=== PATIENT | male | born 1955 | race Caucasian/White ===

== ENCOUNTER 2017-04-20 12:44 | Emergency (ER) | payer MEDICAID ==
[2016-03-09 13:24] VITALS: BMI 23.7
[~2017-04-20 12:44] MED LIST: CATAPRES0.1 MG PO; FOLIC ACID1 MG PO; LISINOPRIL10 MG PO; MINOCIN100 MG PO; NORVASC5 MG PO; ROCALTROL0.25 MCG PO; TIROSINT25 MCG PO; TRAZODONE HCL50 MG PO
[2017-04-20 13:17] LABS: EOSINOPHILS 2.5 % (0-7); HEMOGLOBIN 13.3 g/dL (13.5-17.5); IMMATURE GRANULOCYTES 0.7 % (0-5); LYMPHOCYTES 42.2 % (15-50); MCH 33.8 pg (26.0-34.0); MCHC 34.1 g/dL (31.0-37.0); MCV 99.2 fL (80.0-100.0); MEAN PLATELET VOLUME 9.8 fL (7.4-10.4); MONOCYTES 8.9 % (2-11); NEUTROPHILS 44.7 % (40-80); PLATELET COUNT 158 10x3/uL (130-400); RBC 3.93 10x6/uL (4.20-6.10); RDW 17.2 % (11.5-14.5); WBC 5.9 10x3/uL (4.8-10.8)
[2017-04-20 13:57] LABS: ALBUMIN 3.8 g/dL (3.4-5.0); ALKALINE PHOSPHATASE 139 U/L (46-116); ALT (SGPT) 41 U/L (10-68); BILIRUBIN - TOTAL 0.44 mg/dL (0.2-1.3); CALC OSMOLALITY 269 mosm/kg (275-300); CARBON DIOXIDE 30.4 mmol/L (21.0-32.0); CHLORIDE - SERUM 96 mmol/L (98-107); CKMB 2.5 U/L (0.0-3.6); CREATININE - SERUM 0.9 mg/dL (0.6-1.3); GLUCOSE 84 mg/dL (74-106); PROTEIN - SERUM 8.7 g/dL (6.4-8.2); SODIUM 136 mmol/L (136-145); UREA NITROGEN 9 mg/dL (7-18); eGFR NON AFRICAN AMERICAN > 90 mL/min (90-120)
[2017-04-20 14:21] LABS: CREATINE KINASE 834 UL (21-232)
[2017-04-20 14:23] LABS: CALCIUM 5.6 mg/dL (8.5-10.1); TROPONIN-I 0.106 ng/mL (0.000-0.060)
== END 2017-04-20 14:21 | disposition home or self-care (01) ==
LOC: D.ER 12:44
PROVIDERS: Emergency Medicine
DX: R07.9 Chest pain, unspecified (principal); I25.10 Atherosclerotic heart disease of native coronary artery without angina pectoris; I10 Essential (primary) hypertension; I44.1 Atrioventricular block, second degree; I45.10 Unspecified right bundle-branch block

== ENCOUNTER 2017-08-05 15:16 | Inpatient (IN) | payer MEDICAID ==
[~2017-08-05] VITALS: Ht 180.3 cm; Wt 70.8 kg
--- NOTE | ~2017-08-05 | OP ---
PATIENT NAME: HAMZAH GREEN MEDICAL RECORD: [id number] :51 LOCATION:D.CVI D.CV05 ADMISSION DATE:08/05/17 SURGEON: KAREN VAIL MD DATE OF OPERATION: 08/06/2017 PREOPERATIVE DIAGNOSES: 1. Bradycardia. 2. Sick sinus syndrome. 3. Delirium tremens. POSTOPERATIVE DIAGNOSES: 1. Bradycardia. 2. Sick sinus syndrome. 3. Delirium tremens. PROCEDURE: 1. Left subclavian vein dual lead pacemaker placement. 2. Fluoroscopic interpretation. SURGEON: Karen Vail MD CO-SURGEON: Fady Philip MD REPORT OF PROCEDURE: The patient's left chest was prepped and draped in sterile fashion. A total of 25 mL of 1% lidocaine with epinephrine was infused into the surrounding tissues. A transverse incision was made overlying the left superior lateral chest and a subcutaneous pouch was made over the pectoral fascia. We accessed the subclavian vein times 2 and a guidewires were advanced with ease. Fluoro was used to note that the wire was in good position in the venous system. The dilator trocar device was placed over the wire and the wire and dilators were removed. The leads were advanced through the trocars. At this point, Dr. Philip positioned the leads appropriately in the atrium and ventricle. Once these were noted to be functioning appropriately, then the leads were sutured into place with 0 Ti-Cron. The pacemaker was inserted and attached to the leads, this pacemaker was placed in the subcutaneous pouch and sutured down with a 0 Ti-Cron. The subcutaneous tissues were irrigated out with antibiotic solution and then reapproximated with interrupted 3-0 Vicryls. The skin was then closed with running subcutaneous 5-0 Monocryl and dressed appropriately. COMPLICATIONS: None. CONDITION: Stable. ANESTHESIA: Local MAC. BLOOD LOSS: Minimal. TRANSINT:[id number] Voice Confirmation ID: [id number] DOCUMENT ID: [id number] OPERATIVE REPORT [id number] HAMZAH GREEN KAREN VAIL MD at 1319 CC: [id number] DICTATION DATE: 08/06/17 1222 ADJUNCT FACULTY INSTRUCTOR: 08/06/17 1848 DIS IN 08/08/17 [address] [place] [address]
--- NOTE | ~2017-08-05 | DS ---
PATIENT:HAMZAH GREEN :51 MEDICAL RECORD: [id number] DISCHARGE SUMMARY ADMISSION DATE: 08/05/17 DISCHARGE DATE: 08/08/17 DATE OF ADMISSION: 08/05/2017. DATE OF DISCHARGE: 08/08/2017. PROBLEM LIST: Complete heart block with asystole. PROCEDURES PERFORMED: 1. Temporary pacemaker emergently. 2. Dual-chamber pacemaker. BRIEF HISTORY AND HOSPITAL COURSE: Admitted with complete heart block progressing to asystole. A temporary pacemaker was placed urgently, underwent permanent pacemaker placement. Discharged home in good condition. Followup in the office in approximately 1 month. TRANSINT:[id number] Voice Confirmation ID: [id number] DOCUMENT ID: [id number] ALEJANDRINA GOMEZ MD at 0920 CC: [id number] DICTATION DATE: 08/08/17 1122 TRACE CLERK: 08/08/17 1248 DIS IN 08/08/17 [id number] [place] [address]
--- NOTE | ~2017-08-05 | HEMODYNAMI ---
PATIENT:HAMZAH GREEN MEDICAL RECORD: [id number] : 51 LOCATION:[facility] ADMISSION DATE: 08/05/17 Generatedon:08/05/201717:18 Patient name: HAMZAH GREEN Patient #: [id number] SSN: : 1955 Date of study: 08/05/2017 Page: Of Hemodynamic Procedure Report Patient Data Patient Demographics Procedure consent was obtained First Name: HAMZAH Gender: Male Last Name: PETER : 1955 Middle Initial: W Age: 62 year(s) Patient #: [id number] Race: Unknown Additional ID: [id number] Contact details Address: [address] [place] [address] [address]REET State: [place] City: [facility] Zip code: [address] Admission Admission Data Admission Date: 08/05/2017 Admission Time: 15:16 Admit Source: Emergency department Procedure Procedure Types Cath Procedure Diagnostic Procedure Temporary Pacemaker Procedure Description Procedure Date Procedure Date: 08/05/2017 Procedure Start Time: 17:04 Procedure End Time: 17:17 Procedure Staff Name Function Fady Pratt MD Performing Physician Ashley Avila RT Monitor Radha Gillespie RT Scrub Carlos Peraza RN Nurse Procedure Data Cath Procedure Entry Location Entry Primary Successful Side Size Upsize Upsize Entry Closure Succes sful Closure Location (Fr) 1 (Fr) 2 (Fr) Remarks Device Remarks Femoral Right 6 Fr Sheath vein Short sutured in place Estimated blood loss: 5 ml Procedure Complications No complications Procedure Medications Medication Administration Route Dosage Oxygen NC 2 l/min Fentanyl I.V. 50 mcg Heparin Flush Bag added to field 1 bags (1000units/500ml NS) Fentanyl I.V. 50 mcg Hemodynamics Rest Pre Cath Intra NCS Post Cath Vital Signs Time Heart Resp SPO2 etCO2 NIBP (mmHg) Rhythm Pain Sedation Rate (ipm) (%) (mmHg) Status Level (bpm) 17:02:11 40 21 98 0 159/69(136) NSR 0 (11) 10(A) , No pain 17:06:58 38 17 98 0 145/63(117) NSR 0 (11) 10(A) , No pain 17:11:34 78 28 96 0 149/77(122) NSR 0 (11) 10(A) , No pain 17:16:15 80 30 96 0 158/79(117) NSR 0 (11) 10(A) , No pain Medications Time Medication Route Dose Verified Delivered Reason Notes Effec tiveness by by 17:02:17 Oxygen NC 2 Fady Gonzalez Per l/min St Diego Peraza RN physician 17:03:22 Fentanyl I.V. 50 Fady Carlos for [facility] Diego Peraza RN sedation 17:03:45 Heparin Flush added 1 Fady Gonzalez used for Bag to bags St Diego Peraza RN procedure (1000units/500ml field NS) 17:07:06 Fentanyl I.V. 50 Fady Rowey [facility] Diego Peraza RN sedation Procedure Log Time Note 16:35:23 Carlos Peraza RN sent for patient. Start room use. 16:42:24 Time tracking: Call back 16:42:35 Plan of Care:Hemodynamics will remain stable., Cardiac rhythm will remain stable., Comfort level will be maintained., Respiratory function will remain adequate., Patient/ family verbilizes understanding of procedure., Procedure tolerated without complication., Recovers from procedure without complications.. 16:45:22 Patient diabetic? No. 16:45:25 Previous problem with sedation/anesthesia? No ? 16:45:26 Snore? No 16:45:27 Sleep apnea? No 16:45:28 Deviated septum? No 16:45:29 Opens mouth fully? Yes 16:45:30 Sticks out tongue? Yes 16:45:31 Airway obstruction? No ? 16:45:33 Dentures? No ? 16:45:44 Medline Cath Pack ([id number]) opened to sterile field. 16:45:45 Bag Decanter (2002S) opened to sterile field. 16:46:07 SHEATH 6FR Cable ([id number]) opened to sterile field. 16:46:07 5Fr J Tip Temporary Pacing Catheter ([id number]) opened to sterile field. 16:46:18 Signed procedure consent form obtained from patient. 16:46:34 H&P Date Dictated: 08/05/2017 ER History on chart., New H&P dictated by physician.. 16:47:00 Admit Source: Emergency department 16:51:27 Patient received from ED to CCL 1 Alert and oriented. Tansferred to table in Supine position. 16:51:28 Warm blankets applied, and lisa hugger turned on for patient comfort. 16:51:29 Correct patient and procedure confirmed by team. 16:51:30 ECG and BP/O2 sat monitors applied to patient. 16:51:31 Full Disclosure recording started 17:01:13 Vital chart was started 17:01:51 Rhythm: 3rd degree heart block 17:01:56 Pre-procedure instructions explained to patient. 17:01:56 Pre-op teaching completed and patient verbalized understanding. 17:01:58 Family in waiting room. 17:01:59 Patient NPO since Midnight. 17:02:17 Oxygen 2 l/min NC was administered by Carlos Peraza RN; Per physician; 17:02:23 Is patient on blood thinner?No 17:02:28 Pre procedure: right dorsailis pedis pulse 2+ Normal; easily identifiable; not easily obliterated 17:02:30 Patient pain scale 0/10 ?. 17:02:41 IV patent on arrival in left forearm with 0.9% NaCl at [facility]. 17:02:43 Lab results completed and on chart. 17:02:46 Right groin area was prepped with chlora-prep and draped in sterile fashion 17:02:47 Final Timeout: patient, procedure, and site verified with staff and physician. All members of the team are in agreement. 17:02:49 Right groin site verified by team. 17:02:52 Physical assessment completed. ASA score P 2 - A patient with mild systemic disease as per Fady Pratt MD. 17:02:55 Sedation plan: IV Moderate Sedation Medication:Versed, Fentanyl 17:03:01 Procedure started. 17:03:22 Fentanyl 50 mcg I.V. was administered by Carlos Peraza RN; for sedation; 17:03:45 Heparin Flush Bag (1000units/500ml NS) 1 bags added to field was administered by Carlos Peraza RN; used for procedure; 17:04:00 Local anesthetic to right femoral vein with Lidocaine 1% by Fady Pratt MD.INITIAL ACCESS ONLY 17:04:34 A 6 Fr Short sheath was inserted into the Right Femoral vein 17:05:30 Temporary pacer inserted 17:07:06 Fentanyl 50 mcg I.V. was administered by Carlos Peraza RN; for sedation; 17:09:14 Temporary pacer turned on with the following settings: Rate 80, MA 5, Mode: Demand. 17:09:35 Sheath removed intact; hemostasis achieved with Sheath sutured in place to the Right Femoral vein. 17:11:34 Temporary pacemaker sutured in place with 2-0 silk. 17:11:37 Procedure ended.(Physican Out) 17:13:00 Sharps counted by scrub and verified by R.N. 17:13:01 Insertion/operative site no bleeding no hematoma. 17:13:07 Post right femoral artery:stable, clean and dry 17:13:10 Post Procedure Pulses reassessed and unchanged 17:13:37 Post-procedure physical assessment completed. ASA score P 2 - A patient with mild systemic disease as per Fady Pratt MD. 17:13:40 Post procedure rhythm: paced 17:13:48 Estimated blood loss: 5 ml 17:13:50 Post procedure instruction explained to patient.Patient verbalizes understanding. 17:13:50 Patient needs reinforcement of post procedure teaching. 17:14:53 Procedure Complication : No complications 17:14:55 See physician's report for complete and final results. 17:15:53 SUTURE SILK 2-0 BLK BR FS 18 I opened to sterile field. 17:16:16 Tegaderm 4 x 4 (1626W) opened to sterile field. 17:16:35 Procedure and supply charges have been captured, reviewed, submitted and are correct. 17:17:25 Vital chart was stopped 17:17:33 Report given to CVICU. 17:17:38 Patient transfered to CVICU with Bed. 17:17:45 Procedure ended. 17:17:45 Full Disclosure recording stopped 17:17:49 End room use (Document Last) Device Usage Item Name Manufacture Quantity Catalog Hospital Part Current Minimal L ot# / Number Charge Number Stock Stock Serial# Code [facility] 1 [id number] [id number] 5 [employer] ([id number]) Bag Microtek 1 [id number] 71947 [id number] 5 [employer]. () SHEATH 6FR Terumo 1 [id number] 091424 [id number] 40 Cable ([id number]) 5Fr J Tip Ponce 1 [id number] [id number] 46570 942237 2 Temporary Lifesciences Pacing Catheter ([id number]) SUTURE SILK Ethicon 1 685H [id number] 586690 5 2-0 BLK BR FS 18 I Tegaderm 4 3M 1 1626W [id number] 743818 [id number] 5 x 4 (1626W) Signature Audit [place] Stage Time Signature Unsigned Intra-Procedure 08/05/2017 Radha 5:18:02 PM Counts RT(R) Signatures Monitor : Ashley Avila Signature : RT Date : Time : [address] [place] [address]
--- NOTE | ~2017-08-05 | OP ---
PATIENT NAME: HAMZAH GREEN MEDICAL RECORD: [id number] :51 LOCATION:[facility].CV05 ADMISSION DATE:08/05/17 SURGEON: ALEJANDRINA GOMEZ MD DATE OF OPERATION: 08/06/2017 INDICATION: Complete heart block with asystole. SURGEON: Galen Mason MD DESCRIPTION OF PROCEDURE: After left subclavian was cannulated via modified Seldinger technique. Dr. Mason first under fluoroscopic guidance placed the RV lead in the RV apex without difficulty. After adequate R waves and thresholds were obtained, again under fluoroscopic guidance he then placed atrial leads in the right atrial appendage without difficulty. After P waves and thresholds were again obtained, the temporary pacemaker wire was discontinued, the leads were attached to appropriate poles of the generator and the pocket was closed. IMPRESSION: Successful lead portion of permanent pacemaker placement. ESTIMATED BLOOD LOSS: Minimal. DISPOSITION: To the floor, stable. TRANSINT:[id number] Voice Confirmation ID: [id number] DOCUMENT ID: [id number] ALEJANDRINA GOMEZ MD at 0919 CC: [id number] DICTATION DATE: 08/06/17 1217 COMPUTER SECURITY COORDINATOR: 08/06/17 2109 DIS IN 08/08/17 [id number] [place] [address]
--- NOTE | ~2017-08-05 | HP ---
PATIENT: HAMZAH GREEN MEDICAL RECORD: [id number] ACCOUNT: [id number] LOCATION:[facility].CV05 : 51 ADMISSION DATE: 08/05/17 HISTORY AND PHYSICAL EXAMINATION HISTORY OF PRESENT ILLNESS: A 62-year-old gentleman with no known history of coronary artery disease. He has a history of hypertension, presented to the ER after a zeenat syncopal episode, but has found to be in complete heart block promptly progressing to asystoles, started on epinephrine drip. He is being brought to the microbiology lab assistant on an urgent basis. PHYSICAL EXAMINATION: With a transcutaneous pacing, mentation is slow but will answer questions. NECK: No bruits noted. HEART: Bradycardic. No other interpretation. LUNGS: Fair air excursion. EXTREMITIES: Pulses are palpable with percutaneous pacing. IMPRESSION: Complete heart block and an urgent temporary wire. TRANSINT:[id number] Voice Confirmation ID: [id number] DOCUMENT ID: [id number] ALEJANDRINA GOMEZ MD at 0919 CC: [id number] DICTATION DATE: 08/05/17 172 CLINICAL NURSE REVIEWER: 08/05/172024 DIS IN 08/08/17 [facility] [address] [place] [address]
--- NOTE | ~2017-08-05 | HEMODYNAMI ---
PATIENT:HAMZAH GREEN MEDICAL RECORD: [id number] : 51 LOCATION:[facility] D.CV05 ADMISSION DATE: 08/05/17 Generatedon:08/06/201712:17 Patient name: HAMZAH GREEN Patient #: [id number] SSN: : 1955 Date of study: 08/06/2017 Page: Of Hemodynamic Procedure Report Patient Data Patient Demographics Procedure consent was obtained First Name: HAMZAH Gender: Male Last Name: PETER : 1955 Middle Initial: W Age: 62 year(s) Patient #: [id number] Race: Unknown Additional ID: [id number] Contact details Address: [address] [place] [address] STREET State: [place] City: [facility] Zip code: [address] Past Medical History Allergies: No known allergies Admission Admission Data Admission Date: 08/05/2017 Admission Time: 15:16 Admit Source: [facility] Procedure Procedure Types Cath Procedure Diagnostic Procedure PPM/ICD PPM Dual Implant Procedure Description Procedure Date Procedure Date: 08/06/2017 Procedure Start Time: 11:49 Procedure End Time: 12:16 Procedure Staff Name Function Fady Pratt MD Performing Physician Radha Gillespie RT Monitor Carlos Peraza RN Nurse Ashley Avila RT Scrub Galen Mason MD Assisting physician Procedure Data Cath Procedure Fluoroscopy Diagnostic fluoroscopy Total fluoroscopy Time: 1.5 time: 1.5 min min Diagnostic fluoroscopy Total fluoroscopy dose: dose: 37.74 mGy 37.74 mGy Estimated blood loss: 5 ml Procedure Complications No complications Procedure Medications Medication Administration Route Dosage Ancef (1Gm/50ml NS) I.V.P.B 1 g Ancef Irrigation Topical 1 g (1gm/500ml NS) Fentanyl I.V. 50 mcg Versed I.V. 1 mg Fentanyl I.V. 50 mcg Versed I.V. 1 mg Fentanyl I.V. 50 mcg Fentanyl I.V. 50 mcg Hemodynamics Rest Heart Rate: 81 (bpm) Snapshots Pre Cath Intra NCS Post Cath Vital Signs Time Heart Resp SPO2 etCO2 NIBP (mmHg) Rhythm Pain Sedation Rate (ipm) (%) (mmHg) Status Level (bpm) 11:31:30 88 16 0 137/86(115) NSR 0 (11) 10(A) , No pain 11:36:15 79 16 97 0 144/86(107) NSR 0 (11) 10(A) , No pain 11:40:27 79 12 98 0 138/86(114) NSR 0 (11) 10(A) , No pain 11:44:35 79 10 95 0 137/84(120) NSR 0 (11) 10(A) , No pain 11:48:45 79 17 96 0 137/81(103) NSR 0 (11) 10(A) , No pain 11:53:07 62 16 99 0 123/49(111) NSR 0 (11) 9(A) , No pain 11:57:15 79 16 95 0 122/79(101) NSR 0 (11) 9(A) , No pain 12:01:18 80 16 90 0 103/77(96) NSR 0 (11) 9(A) , No pain 12:05:24 39 16 98 0 89/54(81) NSR 0 (11) 9(A) , No pain 12:09:16 72 16 96 0 109/82(102) NSR 0 (11) 9(A) , No pain 12:13:15 79 17 98 0 117/79(102) NSR 0 (11) 9(A) , No pain Medications Time Medication Route Dose Verified Delivered Reason Notes Effective ness by by 11:35:48 Ancef I.V.P.B 1 g Fady Gonzalez Per (1Gm/50ml St Diego Peraza RN physician NS) 11:35:58 Ancef Topical 1 g Fady Gonzalez Per Irrigation St Diego Peraza RN physician (1gm/500ml NS) 11:49:23 Fentanyl I.V. 50 Fady Gonzalez for [facility] Diego Peraza RN sedation 11:49:30 Versed I.V. 1 mg [address] for [facility] Diego Peraza RN sedation 11:53:23 Fentanyl I.V. 50 Fady Gonzalez for [facility] Diego Peraza RN sedation 11:53:31 Versed I.V. 1 mg [address]ady [address] for [facility] Diego Peraza RN sedation 11:57:02 Fentanyl I.V. 50 Fady Gonzalez for [facility] Diego Peraza RN sedation 12:05:29 Fentanyl I.V. 50 Fady Gonzalez for [facility] Diego Peraza RN sedation Procedure Log Time Note 11:06:19 Carlos Peraza RN sent for patient. Start room use. 11:21:26 Time tracking: Call back 11:21:30 Plan of Care:Hemodynamics will remain stable., Cardiac rhythm will remain stable., Comfort level will be maintained., Respiratory function will remain adequate., Patient/ family verbilizes understanding of procedure., Procedure tolerated without complication., Recovers from procedure without complications.. 11:21:59 Patient received from CVICU to CCL 3 Alert and oriented. Tansferred to table in Supine position. 11:22:00 Warm blankets applied, and lisa hugger turned on for patient comfort. 11:22:01 Correct patient and procedure confirmed by team. 11:22:03 Signed procedure consent form obtained from patient. 11:22:04 ECG and BP/O2 sat monitors applied to patient. 11:22:05 Full Disclosure recording started 11:30:26 Vital chart was started 11:32:15 Baseline sample Acquired. 11:32:19 Rhythm: paced 11:32:27 H&P Date Dictated: 08/05/2017 Within 30 days and on chart., ER History on chart.. 11:32:28 Pre-procedure instructions explained to patient. 11:32:29 Pre-op teaching completed and patient verbalized understanding. 11:32:30 Family unavailable. 11:32:35 Patient NPO since Dinner. 11:32:45 Patient allergic to No known allergies 11:32:48 Is the patient allergic to Iodine/contrast media? No. 11:32:51 Is patient on blood thinner?No 11:32:53 Patient diabetic? No. 11:33:28 Previous problem with sedation/anesthesia? No ? 11:33:29 Snore? No 11:33:29 Sleep apnea? No 11:33:31 Deviated septum? No 11:33:32 Opens mouth fully? Yes 11:33:32 Sticks out tongue? Yes 11:33:34 Airway obstruction? No ? 11:33:35 Dentures? No ? 11:33:39 Patient pain scale 0/10 ?. 11:33:45 IV patent on arrival in right forearm with 0.9% NaCl at KVO. 11:33:47 Lab results completed and on chart. 11:33:52 Left chest area was prepped with chlora-prep and draped in sterile fashion 11:33:52 Alarms reviewed by R. N. 11:33:53 Sharps counted by scrub and verified by R.N. 11:34:25 PATIENT ARRIVED WITH TEMP PACER RFV AT 80BPM AT 5MA 11:34:48 Use device set GENNA PPM 11:34:50 2.0 Ticron Multipack ([id number]) opened to sterile field. 11:34:51 3.0 Vicryl Single Pack [id number] opened to sterile field. 11:34:52 5.0 Monocryl PS2 [id number] opened to sterile field. 11:34:53 Cautery Tip Stone Cutter opened to sterile field. 11:34:53 Cautery Pushbutton Pencil opened to sterile field. 11:34:54 Mepilex Dressing ([id number]) opened to sterile field. 11:35:10 Medtronic public health representative SAIRA COTA present for procedure. 11:35:23 Pre sharps counted by scrub and verified by RN: Sutures: 7; Sponges: 5; Stick needles: 2; Skin needles: 2; Blade: 1; Cautery: 1 11:35:27 Grounding pad site Left thigh. 11:35:28 Grounding pad site free from injury. 11:35:48 Ancef (1Gm/50ml NS) 1 g I.V.P.B was administered by Carlos Peraza RN; Per physician; 11:35:58 Ancef Irrigation (1gm/500ml NS) 1 g Topical was administered by Carlos Peraza RN; Per physician; 11:38:13 Medtronic Adapta PPM Dual Generator [id number] opened to sterile field. 11:38:30 Medtronic 4074-52 PPM Lead opened to sterile field. 11:38:43 Medtronic 4574-45 PPM Lead opened to sterile field. 11:41:25 Physician paged 11:45:01 Final Timeout: patient, procedure, and site verified with staff and physician. All members of the team are in agreement. 11:45:06 Left chest site verified by team. 11:45:10 Physical assessment completed. ASA score P 3 - A patient with severe systemic disease as per Fady Pratt MD. 11:45:13 Sedation plan: IV Moderate Sedation Medication:Versed, Fentanyl 11:49:23 Fentanyl 50 mcg I.V. was administered by Carlos Peraza RN; for sedation; 11:49:30 Versed 1 mg I.V. was administered by Carlos Peraza RN; for sedation; 11:49:45 Procedure started. 11:49:56 Lidocaine 1% was administered to left subclavicular area by Galen Mason MD . 11:51:28 Incision made to left subclavicular area. 11:51:37 Generator pocket made/opened. 11:53:23 Fentanyl 50 mcg I.V. was administered by Carlos Peraza RN; for sedation; 11:53:31 Versed 1 mg I.V. was administered by Carlos Peraza RN; for sedation; 11:55:49 Left subclavian vein accessed with 7Fr Peel Away Sheath. 11:55:56 Ventricular lead inserted and advanced. 11:56:02 Peel-a-way sheath was split and removed. 11:56:11 Left subclavian vein accessed with 7Fr Peel Away Sheath. 11:56:13 Atrial lead inserted and advanced. 11:56:14 Peel-a-way sheath was split and removed. 11:57:02 Fentanyl 50 mcg I.V. was administered by Carlos Peraza RN; for sedation; 11:57:57 Ventricular lead positioned. 12:00:18 Temporary pacer turned on with the following settings: Rate 40, MA 5, Mode: Demand. 12:00:32 Ventricular lead tested. 12:02:26 Atrial lead positioned. 12:02:56 Atrial lead tested. 12:04:24 Ventricular lead attachment was completed with 2-0 ticron. 12:04:37 Atrial lead attachment was completed with 2-0 ticron. 12:05:29 Fentanyl 50 mcg I.V. was administered by Carlos Peraza RN; for sedation; 12:06:27 Parameters-- Generator: Mode: N/A. Lower Rate: N/Abpm. Upper Rate: N/Abpm. 12:06:49 Parameters--Ventricular P/R Wave: 6.0mV. Current: 0.3mA; Threshold: 0.5V; Impedence: 825OHMS. 12:07:06 Parameters--Atrial P/R Wave: 5.6mV. Current: 0.6mA; Threshold: 0.3V; Impedence: 530OHMS. 12:07:29 PPM Dual was attached to lead(s) and inserted into pocket. 12:07:33 Generator was sutured in place with 2-0 ticron. 12:07:37 Device pocket was irrigated with Ancef. 12:07:50 Subcutaneous closure was completed with 3-0 vicryl. 12:08:36 Temporary pacer turn off 12:09:02 SHEATH REMOVED INTACT FROM RFV. MAUNUAL PRESSURE HELD. 12:09:06 Temporary pacer removed 12:09:08 Post right femoral vein:stable, clean and dry 12:10:31 Skin closure was completed with 5-0 monocryl. 12:10:35 Lt Chest incision was dressed with Mepilex dressing. 12:10:37 Procedure ended.(Physican Out) 12:10:47 Fluoroscopy time 01.50 minutes. 12:10:51 Flurop Dose total: 37.74 12:10:51 Fluoroscopy dose: 37.74 mGy 12:10:54 Sharps counted by scrub and verified by R.N. 12:11:04 Post sharps counted by scrub and verified by RN: Sutures: 7; Sponges: 5; Stick needles: 2; Skin needles: 2; Blade: 1; Cautery: 1 12:11:07 Insertion/operative site no bleeding no hematoma. 12:11:20 Post Chest area:stable, clean and dry 12:11:22 Post Procedure Pulses reassessed and unchanged 12:11:26 Post-procedure physical assessment completed. ASA score P 3 - A patient with severe systemic disease as per Fady Pratt MD. 12:11:28 Post procedure rhythm: unchanged. 12:11:32 Estimated blood loss: 5 ml 12:11:33 Post procedure instruction explained to patient.Patient verbalizes understanding. 12:11:34 Patient needs reinforcement of post procedure teaching. 12:13:33 Immobilizer Large opened to sterile field. 12:15:15 Procedure and supply charges have been captured, reviewed, submitted and are correct. 12:15:19 Procedure Complication : No complications 12:15:21 See physician's report for complete and final results. 12:15:24 Report given to CVICU. 12:16:34 Vital chart was stopped 12:16:35 Patient transfered to CVICU with Stretcher. 12:16:38 Procedure ended. 12:16:38 Full Disclosure recording stopped 12:16:42 End room use (Document Last) Device Usage Item Name Manufacture Quantity Catalog Hospital Part Current Minimal Lot# / Number Charge Number Stock Stock Serial# Code 2.0 Ticron Ethicon 3 [id number] 50650 [id number] 5 Multipack ([id number]) 3.0 Vicryl Ethicon 1 [id number] 855990 071973 229044 5 Single Pack [id number] 5.0 Monocryl Ethicon 1 Y495G 525031 148873 744253 5 PS2 Y495G Cautery Tip Microtek 1 [id number] 168068 639639 5 M [employer] Cautery Microtek 1 [id number] 357467 94400 609702 5 Pushbutton Medical Inc. Pencil Mepilex Cardinal 1 316227 359918 380091 245386 5 Dressing Health ([id number]) Medtronic Medtronic 1 ADDR01 913055 636402 5 SN Adapta PPM [id number] Dual EXP Generator 2017-12-31 ADDR01 Medtronic Medtronic 1 4074-52 283215 778970 5 SN 4074-52 PPM [id number] Lead EXP 2019-04-12 Medtronic Medtronic 1 4574-45 104113 336958 5 SN 4574-45 PPM [id number] Lead EXP 2019-04-11 Immobilizer Cardinal 1 [id number] 118654 200012 132105 5 Large Health Signature Audit [place] Stage Time Signature Unsigned Intra-Procedure 08/06/2017 Radha 12:17:13 PM Counts RT(R) Signatures Monitor : Radha Signature : Counts RT Date : Time : [facility] [address] [place] [address]
--- NOTE | ~2017-08-05 | OP ---
PATIENT NAME: HAMZAH GREEN MEDICAL RECORD: [id number] :51 LOCATION:[facility] ADMISSION DATE:08/05/17 SURGEON: ALEJANDRINA GOMEZ MD DATE OF OPERATION: 08/05/2017 PROCEDURE: Temporary pacer. INDICATION: Complete heart block with asystole. DESCRIPTION OF PROCEDURE: He was brought to [facility] lab[facility] on an emergent basis after above. The right femoral vein was cannulated via modified Seldinger technique. Under fluoroscopic guidance, we placed the temporary pacer in the RV apex after excellent thresholds were obtained. Output was set at 2. The pacemaker secured with sutures. We will plan for a permanent pacemaker placement in near future. TRANSINT:[id number] Voice Confirmation ID: [id number] DOCUMENT ID: [id number] ALEJANDRINA GOMEZ MD at 0919 CC: [id number] DICTATION DATE: 08/05/17 1724 SUPERINTENDENT OF GENERATION: 08/06/17 0044 DIS IN 08/08/17 [address] [place] [address]
[2017-08-05 16:34] LABS: ALBUMIN 3.8 g/dL (3.4-5.0); ALKALINE PHOSPHATASE 84 U/L (46-116); ALT (SGPT) 144 U/L (10-68); CALC OSMOLALITY 299 mosm/kg (275-300); CALCIUM 7.7 mg/dL (8.5-10.1); CARBON DIOXIDE 15.7 mmol/L (21.0-32.0); CHLORIDE - SERUM 103 mmol/L (98-107); CREATININE - SERUM 2.4 mg/dL (0.6-1.3); POTASSIUM - SERUM 4.7 mmol/L (3.5-5.1); PROTEIN - SERUM 8.8 g/dL (6.4-8.2); SODIUM 145 mmol/L (136-145); UREA NITROGEN 36 mg/dL (7-18); eGFR NON AFRICAN AMERICAN 29 mL/min (90-120)
[2017-08-05 16:35] LABS: GLUCOSE 160 mg/dL (74-106)
[2017-08-05 16:55] LABS: CHOL - HDL RATIO 2.3 ratio (2.3-4.9); CHOLESTEROL, TOTAL 199 mg/dL (0-200); CKMB 2.4 U/L (0.0-3.6); CREATINE KINASE 84 UL (21-232); HDL CHOLESTEROL 86 mg/dL (32-96); LDL CHOLESTEROL 93 mg/dL (0-100); LDL-HDL RATIO 1.1 ratio (1.5-3.5); PRO BNP 14926 pg/mL (0-125); THYROID STIMULATING HORMONE 7.32 uIU/mL (0.36-3.74); TRIGLYCERIDE 100 mg/dL (30-200)
[2017-08-05 19:00] VITALS: BP 153/78
[2017-08-05 19:14] LABS: BASOPHILS 0.1 % (0-2); EOSINOPHILS 0 % (0-7); HEMOGLOBIN 10.6 g/dL (13.5-17.5); IMMATURE GRANULOCYTES 0.7 % (0-5); LYMPHOCYTES 5.1 % (15-50); MCH 31.5 pg (26.0-34.0); MCHC 33.1 g/dL (31.0-37.0); MCV 95.2 fL (80.0-100.0); MEAN PLATELET VOLUME 10.1 fL (7.4-10.4); MONOCYTES 8.1 % (2-11); PLATELET COUNT 170 10x3/uL (130-400); RBC 3.36 10x6/uL (4.20-6.10); RDW 19.8 % (11.5-14.5); WBC 12.9 10x3/uL (4.8-10.8)
[2017-08-05 20:00] VITALS: BP 137/86
[2017-08-05 21:00] VITALS: BP 155/77
[2017-08-05 22:00] VITALS: BP 165/88
[2017-08-05 22:11] LABS: APPEARANCE CLEAR (CLEAR); BILIRUBIN NEGATIVE (NEGATIVE); COLOR AMBER (YELLOW); GLUCOSE NEGATIVE (NEGATIVE); KETONE NEGATIVE (NEGATIVE); NITRITE NEGATIVE (NEGATIVE); PROTEIN TRACE mg/dL (NEGATIVE); UROBILINOGEN NORMAL (NORMAL)
[2017-08-05 23:00] VITALS: BP 170/77
[2017-08-06] VITALS (22 sets, daily range): BP systolic 110–171; BP diastolic 67–88
[2017-08-06 06:13] LABS: BASOPHILS 0.1 % (0-2); EOSINOPHILS 0 % (0-7); IMMATURE GRANULOCYTES 0.4 % (0-5); MCH 31.2 pg (26.0-34.0); MCHC 32.1 g/dL (31.0-37.0); MEAN PLATELET VOLUME 11.5 fL (7.4-10.4); MONOCYTES 5.5 % (2-11); PLATELET COUNT 182 10x3/uL (130-400); RDW 19.9 % (11.5-14.5); WBC 15.3 10x3/uL (4.8-10.8)
[2017-08-06 06:15] LABS: HEMATOCRIT 39.9 % (42.0-54.0); HEMOGLOBIN 12.8 g/dL (13.5-17.5); MCV 97.3 fL (80.0-100.0)
[2017-08-06 06:18] LABS: ALBUMIN 3.1 g/dL (3.4-5.0); BILIRUBIN - TOTAL 1.89 mg/dL (0.2-1.3); CALCIUM 7.8 mg/dL (8.5-10.1); CREATININE - SERUM 1.9 mg/dL (0.6-1.3); PROTEIN - SERUM 8.4 g/dL (6.4-8.2)
[2017-08-06 06:22] LABS: ANION GAP 17.8 mmol/L (8-16); CARBON DIOXIDE 27.1 mmol/L (21.0-32.0); POTASSIUM - SERUM 5.9 mmol/L (3.5-5.1)
[2017-08-06 18:27] LABS: INR 1.49 (0.85-1.17); PROTIME 17.5 SECONDS (11.6-15.0)
[2017-08-07] VITALS (15 sets, daily range): BP systolic 100–147; BP diastolic 44–75
[2017-08-07 05:47] LABS: BASOPHILS 0.1 % (0-2); EOSINOPHILS 0 % (0-7); IMMATURE GRANULOCYTES 0.2 % (0-5); LYMPHOCYTES 5.6 % (15-50); MCH 31.1 pg (26.0-34.0); MCV 97.3 fL (80.0-100.0); MEAN PLATELET VOLUME 10.9 fL (7.4-10.4); NEUTROPHILS 90.1 % (40-80); RBC 3.28 10x6/uL (4.20-6.10); RDW 19.8 % (11.5-14.5)
[2017-08-07 05:51] LABS: HEMATOCRIT 31.9 % (42.0-54.0); HEMOGLOBIN 10.2 g/dL (13.5-17.5); PLATELET COUNT 143 10x3/uL (130-400); WBC 8.7 10x3/uL (4.8-10.8)
[2017-08-07 06:07] LABS: BILIRUBIN - TOTAL 1.3 mg/dL (0.2-1.3); CARBON DIOXIDE 28.2 mmol/L (21.0-32.0); PROTEIN - SERUM 7.1 g/dL (6.4-8.2)
[2017-08-07 06:19] LABS: ANION GAP 16.4 mmol/L (8-16); CREATININE - SERUM 1.2 mg/dL (0.6-1.3); POTASSIUM - SERUM 3.6 mmol/L (3.5-5.1)
[2017-08-07 06:21] LABS: CALCIUM 6.7 mg/dL (8.5-10.1)
[2017-08-08 03:00] VITALS: BP 108/56
[2017-08-08 04:50] LABS: BASOPHILS 0.3 % (0-2); EOSINOPHILS 0.5 % (0-7); HEMATOCRIT 29.4 % (42.0-54.0); HEMOGLOBIN 9.3 g/dL (13.5-17.5); IMMATURE GRANULOCYTES 0.7 % (0-5); LYMPHOCYTES 10.2 % (15-50); MCH 30.5 pg (26.0-34.0); MCHC 31.6 g/dL (31.0-37.0); MCV 96.4 fL (80.0-100.0); MEAN PLATELET VOLUME 10.8 fL (7.4-10.4); MONOCYTES 5.9 % (2-11); NEUTROPHILS 82.4 % (40-80); PLATELET COUNT 171 10x3/uL (130-400); RBC 3.05 10x6/uL (4.20-6.10); RDW 19.9 % (11.5-14.5); WBC 7.4 10x3/uL (4.8-10.8)
[2017-08-08 05:16] LABS: ALBUMIN 2.4 g/dL (3.4-5.0); ALKALINE PHOSPHATASE 62 U/L (46-116); CARBON DIOXIDE 28.2 mmol/L (21.0-32.0); CHLORIDE - SERUM 107 mmol/L (98-107); CREATININE - SERUM 0.9 mg/dL (0.6-1.3); GLUCOSE 98 mg/dL (74-106); POTASSIUM - SERUM 3.1 mmol/L (3.5-5.1); PROTEIN - SERUM 6.4 g/dL (6.4-8.2); SODIUM 144 mmol/L (136-145); eGFR NON AFRICAN AMERICAN 90 mL/min (90-120)
[2017-08-08 05:20] LABS: CALC OSMOLALITY 290 mosm/kg (275-300); UREA NITROGEN 25 mg/dL (7-18)
[2017-08-08 05:21] LABS: ALT (SGPT) 146 U/L (10-68)
[2017-08-08 07:00] VITALS: BP 135/60
[2017-08-08 08:00] VITALS: BP 131/62
[2017-08-08 10:00] VITALS: BP 141/66
[2017-08-08 10:33] VITALS: Ht 180.3 cm; Wt 70.8 kg
[2017-08-08 12:00] VITALS: BP 109/66
[2017-08-08 14:00] VITALS: BP 117/42
== END 2017-08-08 15:00 | disposition home or self-care (01) | DRG 242 ==
LOC: D.CVICU 15:16 → D.ER 15:16 → D.CVICU 17:36 → D.ER 17:37 → D.CVICU 17:38
PROVIDERS: Emergency Medicine; Internal Medicine Interventional Cardiology; Internal Medicine Nephrology
PROC: 5A1223Z Performance of Cardiac Pacing, Continuous (ICD-10-PCS; principal; 2017-08-05 17:00)
PROC: 0JH606Z Insertion of Pacemaker, Dual Chamber into Chest Subcutaneous Tissue and Fascia, Open Approach (ICD-10-PCS; 2017-08-06)
PROC: 02H63JZ Insertion of Pacemaker Lead into Right Atrium, Percutaneous Approach (ICD-10-PCS; 2017-08-06)
PROC: 02HK3JZ Insertion of Pacemaker Lead into Right Ventricle, Percutaneous Approach (ICD-10-PCS; 2017-08-06)
DX: I44.2 Atrioventricular block, complete (principal); I46.9 Cardiac arrest, cause unspecified; G93.40 Encephalopathy, unspecified; F10.231 Alcohol dependence with withdrawal delirium; N17.9 Acute kidney failure, unspecified; I10 Essential (primary) hypertension; E87.5 Hyperkalemia; J44.9 Chronic obstructive pulmonary disease, unspecified

== ENCOUNTER 2017-08-10 14:24 | Inpatient (IN) | payer MEDICAID ==
[~2017-08-10] VITALS: Ht 180.3 cm; Wt 67.6 kg
--- NOTE | ~2017-08-10 | EC ---
PATIENT:HAMZAH GREEN DATE OF SERVICE: 08/10/17 SEX: M MEDICAL RECORD: [id number] DATE OF : [birth year] LOCATION:D.M2 D.213 AGE OF PATIENT: 62 ADMISSION DATE: 08/10/17 REFERRING PHYSICIAN: INTERPRETING PHYSICIAN: BLAKE CAMEJO MD ECHOCARDIOGRAM REPORT ECHO CHARGES 4 ECHO COMPLETE CLINICAL DIAGNOSIS: HTHN RECENT PACEMAKER ECHOCARDIOGRAPHIC MEASUREMENTS (adult normal given) AC root (d.<3.7cm) 4.6 cm LV Septum d (<1.2 cm> 1.8 cm Valve Excursion 2.0 cm LV Septum (systole) 2.0 cm Left Atria (s.<4.0cm> 3.8 cm LVPW d(<1.2cm) 1.9 cm RV (d.<2.3cm) 3.6 cm LVPW (sytole) 2.1 cm LV diastole(<5.6CM) 4.7 cm MV E-F(>70mm/sec) cm LV systole 3.0 cm LVOT Diameter cm MV exc.(>10mm) cm Est.ejection fraction (50-75%) % Pericardial Effusion N DOPPLER: LVIT cm/sec A 48.0 cm/sec E 111 cm/sec LA cm/sec RVSP 29 mmHg LVOT 135 cm/sec AOP1/2T 781 m/s Asc. Ao 163 cm/sec RVOT cm/sec RA cm/sec PA cm/sec AV Gradient Peak 10.61mmHg AV Mean 6.30 mmHg AV Area 1.9 cm MV Gradient Peak 6.99 mmHg MV Mean 3.11 mmHg MV Area cm COMMENTS: Component Overhaul Operator: Stacey MARTIN Lan Administrator: Nita Camejo TAPE# PACS DATE OF SERVICE: 08/11/2017 PROCEDURE: Echocardiogram. FINDINGS: 1. Left ventricular chamber size is within normal limits. Left ventricular systolic function is normal. Overall ejection fraction estimated at 55%. 2. Left atrium, right atrium, right ventricle chamber size is within normal limits. Left atrium measures 3.2 cm. 3. Valvular structures have normal structure and motion. ECHOCARDIOGRAM REPORT [id number] HAMZAH GREEN 4. Doppler interrogation reveals mild aortic insufficiency, mild mitral regurgitation, mild tricuspid regurgitation, no other valvular insufficiency or stenosis. 5. No evidence of pericardial effusion or left ventricular thrombus. TRANSINT:[id number] Voice Confirmation ID: [id number] DOCUMENT ID: [id number] BLAKE CAMEJO MD at 1153 CC: [id number] DICTATION DATE: 08/11/17 1216 BILLING ADJUDICATOR: 08/11/17 1252 ADM IN [place] [address] [place] [address]
--- NOTE | ~2017-08-10 | HP ---
PATIENT: HAMZAH GREEN MEDICAL RECORD: [id number] ACCOUNT: [id number] LOCATION:[address] : [birth year] ADMISSION DATE: 08/10/17 HISTORY AND PHYSICAL EXAMINATION HISTORY OF PRESENT ILLNESS: A 62-year-old male who presented to the Emergency Room with cough and shortness of breath, had a pacemaker placed here 2 days prior. PAST MEDICAL HISTORY: Significant for heart block status post pacemaker placement, hypothyroidism, alcohol dependence and abuse, hypertension. SOCIAL HISTORY: The patient lives with his nephew. He is minimally active and states he spends most of his time on the couch. Admits to daily alcohol use. History of nicotine dependence, daily smoker. CURRENT MEDICATIONS: Listed as levothyroxine, lisinopril, amlodipine, trazodone, clonidine. Reportedly, he got his medications from his last hospitalization at [facility]. Does not have a primary care physician. ALLERGIES: No known drug allergies. REVIEW OF SYSTEMS: GENERAL: Denies any acute change in weight. HEENT: Denies cephalgia, visual changes, tinnitus, epistaxis or dysphagia. CARDIOVASCULAR: Denies chest pain. PULMONARY: Admits cough nonproductive. GASTROINTESTINAL: Denies hematemesis, hematochezia or melena. GENITOURINARY: Denies dysuria. MUSCULOSKELETAL: No acute changes. ENDOCRINE: Denies polyuria, polydipsia, or polyphagia. PHYSICAL EXAMINATION: VITAL SIGNS: Temp 97.9, blood pressure 108/48, heart rate 60, respirations 18, O2 sats 97% on room air. GENERAL: Alert and oriented, no present distress. HEENT: Normocephalic, atraumatic. Eyes: Pupils are equally round and reactive. Ears: Canals patent. TMs are intact. Nose: Nares patent without drainage. Throat: No erythema, no exudates. NECK: Supple. No lymphadenopathy, no JVD. HEART: Regular rate and rhythm. No S3, S4, no rub. LUNGS: Clear to auscultation bilaterally. Breathing is nonlabored. ABDOMEN: Soft, nontender. Bowel sounds positive. EXTREMITIES: Present times 4, no edema. NEUROLOGIC: No appreciable focal deficits. SKIN: Warm and dry. No rash. LABORATORY DATA: EKG shows a paced rhythm, rate of 60. CBC: White count 6.3, hemoglobin 12.3, hematocrit 37.9, platelets 182. Chemistry shows a sodium of 144, potassium 3.9, chloride 103, bicarbonate 28.8, BUN 20, creatinine 1.2, glucose 86, calcium is 5.9. ABG: pH 7.5, pCO2 of 33, pO2 of 62, bicarbonate 26. Ionized calcium is 0.61. INR is 1.03. Influenza is negative. Urinalysis yellow, clear, trace protein. CK is 80. Troponin is mildly elevated at 0.091. ProBNP 4184. Urine and blood cultures pending. Chest x-ray is clear. HISTORY AND PHYSICAL [id number] HAMZAH GREEN ASSESSMENT AND PLAN: Alcohol abuse and hypocalcemia. We will supplement per protocol. Hang a banana bag, supplement IV fluids. Consult cardiology. The patient's history of sedentary behavior, nicotine dependence. We will obtain a D-dimer if elevated. CTA of chest for PE protocol. Consult case management for placement. DVT prophylaxis. Supportive care. TRANSINT:[id number] Voice Confirmation ID: [id number] DOCUMENT ID: [id number] JOHNNY CARABALLO DO at 0730 CC: [id number] DICTATION DATE: 08/11/17 0837 LOADING MACHINE TOOL SETTER: 08/11/17 0915 ADM IN [facility] [address] [place] [address]
[2017-08-10 15:43] LABS: BASOPHILS 0.2 % (0-2); EOSINOPHILS 2.5 % (0-7); HEMATOCRIT 41.2 % (42.0-54.0); HEMOGLOBIN 13.5 g/dL (13.5-17.5); IMMATURE GRANULOCYTES 0.2 % (0-5); LYMPHOCYTES 19.8 % (15-50); MCHC 32.8 g/dL (31.0-37.0); MCV 94.5 fL (80.0-100.0); MEAN PLATELET VOLUME 10.3 fL (7.4-10.4); MONOCYTES 7.5 % (2-11); NEUTROPHILS 69.8 % (40-80); PLATELET COUNT 184 10x3/uL (130-400); RBC 4.36 10x6/uL (4.20-6.10); RDW 19.3 % (11.5-14.5); WBC 8.8 10x3/uL (4.8-10.8)
[2017-08-10 15:55] LABS: APPEARANCE CLEAR (CLEAR); COLOR DK YELLOW (YELLOW)
[2017-08-10 16:09] LABS: BILIRUBIN NEGATIVE (NEGATIVE); GLUCOSE NEGATIVE (NEGATIVE); KETONE NEGATIVE (NEGATIVE); NITRITE NEGATIVE (NEGATIVE); PROTEIN TRACE mg/dL (NEGATIVE); UROBILINOGEN NORMAL (NORMAL)
[2017-08-10 16:11] LABS: BACTERIA FEW /hpf (NONE SEEN); RED CELLS - URINE 0-5 /hpf (0-5); WHITE CELLS - URINE 0-5 /hpf (0-5)
[2017-08-10 16:19] LABS: ALBUMIN 3.2 g/dL (3.4-5.0); ALKALINE PHOSPHATASE 81 U/L (46-116); ALT (SGPT) 106 U/L (10-68); BILIRUBIN - TOTAL 0.57 mg/dL (0.2-1.3); CARBON DIOXIDE 24.9 mmol/L (21.0-32.0); CHLORIDE - SERUM 102 mmol/L (98-107); CREATINE KINASE 80 UL (21-232); CREATININE - SERUM 0.9 mg/dL (0.6-1.3); POTASSIUM - SERUM 3.5 mmol/L (3.5-5.1); PRO BNP 4184 pg/mL (0-125); PROTEIN - SERUM 7.8 g/dL (6.4-8.2); SODIUM 144 mmol/L (136-145); UREA NITROGEN 15 mg/dL (7-18); eGFR NON AFRICAN AMERICAN 90 mL/min (90-120)
[2017-08-10 16:20] LABS: CALC OSMOLALITY 285 mosm/kg (275-300); GLUCOSE 67 mg/dL (74-106)
[2017-08-10 16:21] LABS: CALCIUM 6.6 mg/dL (8.5-10.1)
[2017-08-10 16:22] LABS: TROPONIN-I 0.091 ng/mL (0.000-0.060)
[2017-08-10 17:19] LABS: INR 1.03 (0.85-1.17); PROTIME 13.1 SECONDS (11.6-15.0)
[2017-08-10] MEDS ORDERED: TRAZODONE HCL50 MG PO (23:00)
[2017-08-11 00:41] VITALS: BP 110/57
[2017-08-11 04:55] LABS: BASOPHILS 0.4 % (0-2); EOSINOPHILS 1.1 % (0-7); HEMATOCRIT 37.9 % (42.0-54.0); HEMOGLOBIN 12.3 g/dL (13.5-17.5); IMMATURE GRANULOCYTES 0.4 % (0-5); LYMPHOCYTES 26.3 % (15-50); MCH 30.9 pg (26.0-34.0); MCHC 32.5 g/dL (31.0-37.0); MCV 95.2 fL (80.0-100.0); MEAN PLATELET VOLUME 9.8 fL (7.4-10.4); MONOCYTES 9.3 % (2-11); NEUTROPHILS 62.5 % (40-80); PLATELET COUNT 182 10x3/uL (130-400); RBC 3.98 10x6/uL (4.20-6.10); RDW 19.4 % (11.5-14.5); WBC 7.3 10x3/uL (4.8-10.8)
[2017-08-11] MEDS ORDERED: K-DUR20 MEQ PO (05:11)
[2017-08-11 05:32] VITALS: BP 96/49
[2017-08-11 05:32] LABS: ANION GAP 16.1 mmol/L (8-16); CARBON DIOXIDE 28.8 mmol/L (21.0-32.0); POTASSIUM - SERUM 3.9 mmol/L (3.5-5.1)
[2017-08-11 05:42] LABS: CREATININE - SERUM 1.2 mg/dL (0.6-1.3)
[2017-08-11 05:43] LABS: CALCIUM 5.9 mg/dL (8.5-10.1)
[2017-08-11 07:33] VITALS: BP 108/48
[2017-08-11 09:30] LABS: CKMB 1.5 U/L (0.0-3.6); THYROID STIMULATING HORMONE 7.71 uIU/mL (0.36-3.74); TROPONIN-I 0.154 ng/mL (0.000-0.060)
[2017-08-11 11:13] VITALS: Ht 180.3 cm; Wt 67.6 kg
[2017-08-11 11:31] VITALS: BP 112/52
[2017-08-11 15:56] VITALS: BP 143/71
[2017-08-11 20:00] VITALS: BP 110/58
[2017-08-12] VITALS: BP 115/56
[2017-08-12 05:23] LABS: BASOPHILS 1.5 % (0-2); EOSINOPHILS 2.6 % (0-7); HEMATOCRIT 45.2 % (42.0-54.0); HEMOGLOBIN 13.9 g/dL (13.5-17.5); IMMATURE GRANULOCYTES 0.3 % (0-5); LYMPHOCYTES 31.1 % (15-50); MCH 29.1 pg (26.0-34.0); MCHC 30.8 g/dL (31.0-37.0); MCV 94.6 fL (80.0-100.0); MEAN PLATELET VOLUME 10.7 fL (7.4-10.4); MONOCYTES 7.7 % (2-11); NEUTROPHILS 56.8 % (40-80); RDW 19.5 % (11.5-14.5)
[2017-08-12 05:25] LABS: PLATELET COUNT 125 10x3/uL (130-400); RBC 4.78 10x6/uL (4.20-6.10); WBC 3.9 10x3/uL (4.8-10.8)
[2017-08-12 05:35] LABS: ALBUMIN 2.4 g/dL (3.4-5.0); BILIRUBIN - TOTAL 0.4 mg/dL (0.2-1.3); CREATININE - SERUM 1.4 mg/dL (0.6-1.3); MAGNESIUM - SERUM 1.4 mg/dL (1.8-2.4); PHOSPHOROUS 5.9 mg/dL (2.5-4.9); PROTEIN - SERUM 6.8 g/dL (6.4-8.2)
[2017-08-12 05:37] LABS: CALCIUM 5.7 mg/dL (8.5-10.1)
[2017-08-12 09:51] VITALS: BP 132/66
[2017-08-12 10:45] VITALS: BP 136/68
[2017-08-12 15:35] VITALS: BP 122/71
[2017-08-12 20:54] VITALS: BP 113/65
[2017-08-13] VITALS (7 sets, daily range): BP systolic 92–100; BP diastolic 44–58
[2017-08-13 06:07] LABS: BASOPHILS 0.9 % (0-2); EOSINOPHILS 5.1 % (0-7); HEMOGLOBIN 12.5 g/dL (13.5-17.5); IMMATURE GRANULOCYTES 0.2 % (0-5); LYMPHOCYTES 37.9 % (15-50); MCH 30.8 pg (26.0-34.0); MCHC 32.9 g/dL (31.0-37.0); MCV 93.6 fL (80.0-100.0); MEAN PLATELET VOLUME 10.4 fL (7.4-10.4); MONOCYTES 8.3 % (2-11); NEUTROPHILS 47.6 % (40-80); RBC 4.06 10x6/uL (4.20-6.10); RDW 19.5 % (11.5-14.5)
[2017-08-13 06:21] LABS: PLATELET COUNT 219 10x3/uL (130-400); WBC 5.5 10x3/uL (4.8-10.8)
[2017-08-13 06:27] LABS: ANION GAP 17.2 mmol/L (8-16); CARBON DIOXIDE 28.6 mmol/L (21.0-32.0); CREATININE - SERUM 1.3 mg/dL (0.6-1.3); PHOSPHOROUS 5.7 mg/dL (2.5-4.9); POTASSIUM - SERUM 3.8 mmol/L (3.5-5.1)
[2017-08-13 06:30] LABS: CALCIUM 6.2 mg/dL (8.5-10.1); MAGNESIUM - SERUM 1.8 mg/dL (1.8-2.4)
[2017-08-14 04:32] LABS: BASOPHILS 0.5 % (0-2); EOSINOPHILS 2.7 % (0-7); HEMATOCRIT 34.8 % (42.0-54.0); HEMOGLOBIN 11.6 g/dL (13.5-17.5); IMMATURE GRANULOCYTES 0.2 % (0-5); LYMPHOCYTES 34.5 % (15-50); MCH 30.7 pg (26.0-34.0); MCHC 33.3 g/dL (31.0-37.0); MCV 92.1 fL (80.0-100.0); MEAN PLATELET VOLUME 11.1 fL (7.4-10.4); MONOCYTES 8.2 % (2-11); NEUTROPHILS 53.9 % (40-80); RBC 3.78 10x6/uL (4.20-6.10); RDW 19.3 % (11.5-14.5); WBC 6.2 10x3/uL (4.8-10.8)
[2017-08-14 04:33] LABS: PLATELET COUNT 164 10x3/uL (130-400)
[2017-08-14 05:01] LABS: ALBUMIN 2.8 g/dL (3.4-5.0); ANION GAP 14.3 mmol/L (8-16); BILIRUBIN - TOTAL 0.37 mg/dL (0.2-1.3); CARBON DIOXIDE 27.6 mmol/L (21.0-32.0); CREATININE - SERUM 1.4 mg/dL (0.6-1.3); POTASSIUM - SERUM 3.9 mmol/L (3.5-5.1); PROTEIN - SERUM 6.9 g/dL (6.4-8.2)
[2017-08-14 05:06] LABS: CALCIUM 6.5 mg/dL (8.5-10.1)
[2017-08-14 05:55] VITALS: BP 108/57
[2017-08-14 08:38] VITALS: BP 127/55
[2017-08-14 11:24] VITALS: BP 135/65
[2017-08-14 16:05] VITALS: BP 115/44
[2017-08-14 20:15] VITALS: BP 117/63
[2017-08-15 00:30] VITALS: BP 105/50
[2017-08-15 05:21] LABS: BASOPHILS 0.3 % (0-2); HEMATOCRIT 36.3 % (42.0-54.0); HEMOGLOBIN 11.9 g/dL (13.5-17.5); IMMATURE GRANULOCYTES 0.2 % (0-5); LYMPHOCYTES 23.2 % (15-50); MCH 30.4 pg (26.0-34.0); MCHC 32.8 g/dL (31.0-37.0); MCV 92.6 fL (80.0-100.0); MEAN PLATELET VOLUME 10.5 fL (7.4-10.4); MONOCYTES 4.9 % (2-11); NEUTROPHILS 68.4 % (40-80); RBC 3.92 10x6/uL (4.20-6.10); RDW 19.3 % (11.5-14.5)
[2017-08-15 05:27] LABS: PLATELET COUNT 257 10x3/uL (130-400); WBC 9.2 10x3/uL (4.8-10.8)
[2017-08-15 05:58] LABS: ALBUMIN 2.7 g/dL (3.4-5.0); ANION GAP 18.7 mmol/L (8-16); BILIRUBIN - TOTAL 0.4 mg/dL (0.2-1.3); CARBON DIOXIDE 25.1 mmol/L (21.0-32.0); CREATININE - SERUM 1.3 mg/dL (0.6-1.3); POTASSIUM - SERUM 3.8 mmol/L (3.5-5.1); PROTEIN - SERUM 7.4 g/dL (6.4-8.2)
[2017-08-15 06:15] LABS: CALCIUM 6.9 mg/dL (8.5-10.1)
[2017-08-15 06:24] VITALS: BP 94/46
[2017-08-15 08:21] VITALS: BP 93/61
[2017-08-15 12:26] VITALS: BP 105/70
[2017-08-15 15:26] VITALS: BP 111/67
[2017-08-16] VITALS: BP 100/60
[2017-08-16 04:00] VITALS: BP 106/56
[2017-08-16 05:57] LABS: BASOPHILS 0.2 % (0-2); EOSINOPHILS 2.2 % (0-7); HEMATOCRIT 39.3 % (42.0-54.0); HEMOGLOBIN 13.1 g/dL (13.5-17.5); IMMATURE GRANULOCYTES 0.2 % (0-5); LYMPHOCYTES 24.3 % (15-50); MCH 30.9 pg (26.0-34.0); MCHC 33.3 g/dL (31.0-37.0); MCV 92.7 fL (80.0-100.0); MEAN PLATELET VOLUME 10.3 fL (7.4-10.4); MONOCYTES 5.2 % (2-11); NEUTROPHILS 67.9 % (40-80); PLATELET COUNT 295 10x3/uL (130-400); RBC 4.24 10x6/uL (4.20-6.10); WBC 8.3 10x3/uL (4.8-10.8)
[2017-08-16 06:20] LABS: ALBUMIN 2.9 g/dL (3.4-5.0); ANION GAP 12.7 mmol/L (8-16); BILIRUBIN - TOTAL 0.56 mg/dL (0.2-1.3); CARBON DIOXIDE 30.1 mmol/L (21.0-32.0); PHOSPHOROUS 5.6 mg/dL (2.5-4.9); POTASSIUM - SERUM 3.8 mmol/L (3.5-5.1); PROTEIN - SERUM 8.2 g/dL (6.4-8.2)
[2017-08-16 06:24] LABS: CREATININE - SERUM 1.7 mg/dL (0.6-1.3)
[2017-08-16 07:54] VITALS: BP 114/63
[2017-08-16 10:41] VITALS: BP 110/66
[2017-08-16 15:15] VITALS: BP 118/58
[2017-08-16 20:00] VITALS: BP 104/50
[2017-08-17] VITALS: BP 110/55
[2017-08-17 04:00] VITALS: BP 122/60
[2017-08-17 07:54] VITALS: BP 111/44
[2017-08-17 11:42] VITALS: BP 96/53
[2017-08-17 16:16] LABS: ANION GAP 16.9 mmol/L (8-16); CALCIUM 8.1 mg/dL (8.5-10.1); CREATININE - SERUM 1.9 mg/dL (0.6-1.3); POTASSIUM - SERUM 4.9 mmol/L (3.5-5.1)
[2017-08-17 16:20] VITALS: BP 101/55
[2017-08-17 19:00] VITALS: BP 104/61
[2017-08-18 04:00] VITALS: BP 131/73
[2017-08-18 06:20] LABS: BASOPHILS 0.1 % (0-2); EOSINOPHILS 0.2 % (0-7); HEMATOCRIT 36.5 % (42.0-54.0); HEMOGLOBIN 12.5 g/dL (13.5-17.5); IMMATURE GRANULOCYTES 0.3 % (0-5); LYMPHOCYTES 12.3 % (15-50); MCH 31.6 pg (26.0-34.0); MCHC 34.2 g/dL (31.0-37.0); MCV 92.4 fL (80.0-100.0); MEAN PLATELET VOLUME 10.2 fL (7.4-10.4); MONOCYTES 5.2 % (2-11); NEUTROPHILS 81.9 % (40-80); PLATELET COUNT 324 10x3/uL (130-400); RBC 3.95 10x6/uL (4.20-6.10); RDW 18.9 % (11.5-14.5)
[2017-08-18 06:49] LABS: ALBUMIN 3.1 g/dL (3.4-5.0); BILIRUBIN - TOTAL 0.5 mg/dL (0.2-1.3); CALCIUM 7.7 mg/dL (8.5-10.1); CREATININE - SERUM 1.8 mg/dL (0.6-1.3); PROTEIN - SERUM 8.4 g/dL (6.4-8.2)
[2017-08-18 09:23] VITALS: BP 114/66
[2017-08-18 11:30] VITALS: BP 106/56
[2017-08-18 14:43] LABS: APPEARANCE CLEAR (CLEAR); BILIRUBIN NEGATIVE (NEGATIVE); COLOR YELLOW (YELLOW); GLUCOSE NEGATIVE (NEGATIVE); KETONE NEGATIVE (NEGATIVE); NITRITE NEGATIVE (NEGATIVE); PROTEIN NEGATIVE (NEGATIVE); UROBILINOGEN NORMAL (NORMAL)
[2017-08-18 14:48] LABS: CREATININE - URINE 35.3 mg/dL (30-125)
[2017-08-18 14:51] LABS: PROTEIN - URINE 0.7 mg/dL (0.0-11.9)
[2017-08-18] MEDS ORDERED: LEVAQUIN500 MG PO (15:36)
[2017-08-18] MEDS ORDERED: IPRAT-ALBUT 0.5-3 ML UPD (15:37)
[2017-08-18] MEDS ORDERED: PREDNISONE20 MG PO (15:37)
[2017-08-18] MEDS ORDERED: SINGULAIR10 MG PO (15:38)
[2017-08-18] MEDS ORDERED: MUCINEX DM ER1 EAC1 PO (15:38)
[2017-08-18] MEDS ORDERED: PROAIR HFA8.5 GM INH (15:38)
[2017-08-18 17:47] VITALS: BP 103/66
== END 2017-08-18 17:49 | disposition home or self-care (01) | DRG 190 ==
LOC: D.ER 14:24 → D.EDHOLD 17:48 → D.M2 17:48 → D.SDCHOLD 08-11 11:10 → D.M2 08-18 17:49
PROVIDERS: Emergency Medicine; Family Medicine; Internal Medicine Nephrology; Nurse Practitioner Family
DX: J44.0 Chronic obstructive pulmonary disease with (acute) lower respiratory infection (principal); J18.9 Pneumonia, unspecified organism; N17.9 Acute kidney failure, unspecified; J21.9 Acute bronchiolitis, unspecified; N39.0 Urinary tract infection, site not specified; R79.89 Other specified abnormal findings of blood chemistry; E83.51 Hypocalcemia; J44.1 Chronic obstructive pulmonary disease with (acute) exacerbation; F10.20 Alcohol dependence, uncomplicated; E03.9 Hypothyroidism, unspecified; B96.89 Other specified bacterial agents as the cause of diseases classified elsewhere; D63.1 Anemia in chronic kidney disease; I12.9 Hypertensive chronic kidney disease with stage 1 through stage 4 chronic kidney disease, or unspecified chronic kidney disease; N18.9 Chronic kidney disease, unspecified; I08.3 Combined rheumatic disorders of mitral, aortic and tricuspid valves; Z95.0 Presence of cardiac pacemaker; Z99.81 Dependence on supplemental oxygen

== ENCOUNTER 2017-08-30 03:36 | Inpatient (IN) | payer MEDICAID ==
[~2017-08-30] VITALS: Ht 180.3 cm; Wt 65.8 kg
--- NOTE | ~2017-08-30 | DS ---
PATIENT:HAMZAH GREEN :51 MEDICAL RECORD: [id number] DISCHARGE SUMMARY ADMISSION DATE: 08/30/17 DISCHARGE DATE: 08/30/17 DATE OF DISCHARGE: 08/30/2017 DISCHARGE DIAGNOSES: 1. Paroxysmal atrial fibrillation. 2. Sick sinus syndrome. 3. Status post pacemaker. Mr. Green presents with chest pain and palpitations. His pacemaker was interrogated. He is having paroxysms of atrial fibrillation. He was started on sotalol to maintain sinus rhythm. Discharged home with the addition of sotalol to his medical regimen. Follow up with [facility] as scheduled. TRANSINT:[id number] Voice Confirmation ID: [id number] DOCUMENT ID: [id number] BLAKE HAY MD at 1056 CC: [id number] DICTATION DATE: 08/30/17 0942 PRODUCTION TECHNICIAN: 08/30/17 1625 DIS IN 08/30/17 [address] [place] [address]
[~2017-08-30 03:36] MED LIST changes: +IPRAT-ALBUT 0.5-3 ML UPD; +K-DUR20 MEQ PO; +LEVAQUIN500 MG PO; +MUCINEX DM ER1 EAC1 PO; +PREDNISONE20 MG PO; +PROAIR HFA8.5 GM INH; +SINGULAIR10 MG PO
[2017-08-30 03:55] LABS: BASOPHILS 0.6 % (0-2); EOSINOPHILS 2.8 % (0-7); HEMOGLOBIN 13.9 g/dL (13.5-17.5); IMMATURE GRANULOCYTES 0.2 % (0-5); LYMPHOCYTES 48.8 % (15-50); MCH 31.6 pg (26.0-34.0); MCHC 34.8 g/dL (31.0-37.0); MCV 90.9 fL (80.0-100.0); MEAN PLATELET VOLUME 9.7 fL (7.4-10.4); MONOCYTES 6.9 % (2-11); NEUTROPHILS 40.7 % (40-80); RDW 19.5 % (11.5-14.5); WBC 9.6 10x3/uL (4.8-10.8)
[2017-08-30 03:58] LABS: PLATELET COUNT 256 10x3/uL (130-400)
[2017-08-30 04:07] LABS: APTT 28.3 SECONDS (22.8-39.4); INR 0.98 (0.85-1.17); PROTIME 12.6 SECONDS (11.6-15.0)
[2017-08-30 04:08] LABS: D-DIMER-QUANTITATIVE 1.21 ug/mLFEU (0.20-0.54)
[2017-08-30 04:34] LABS: ALBUMIN 3.3 g/dL (3.4-5.0); ALKALINE PHOSPHATASE 81 U/L (46-116); ALT (SGPT) 24 U/L (10-68); BILIRUBIN - TOTAL 0.61 mg/dL (0.2-1.3); CALC OSMOLALITY 284 mosm/kg (275-300); CALCIUM 7.2 mg/dL (8.5-10.1); CARBON DIOXIDE 23.9 mmol/L (21.0-32.0); CHLORIDE - SERUM 103 mmol/L (98-107); CREATININE - SERUM 1.2 mg/dL (0.6-1.3); GLUCOSE 74 mg/dL (74-106); POTASSIUM - SERUM 3.7 mmol/L (3.5-5.1); SODIUM 143 mmol/L (136-145); UREA NITROGEN 15 mg/dL (7-18); eGFR NON AFRICAN AMERICAN 65 mL/min (90-120)
[2017-08-30 04:41] LABS: CHOL - HDL RATIO 3.5 ratio (2.3-4.9); CHOLESTEROL, TOTAL 283 mg/dL (0-200); CKMB 2.8 U/L (0.0-3.6); CREATINE KINASE 82 UL (21-232); HDL CHOLESTEROL 82 mg/dL (32-96); LDL CHOLESTEROL 177 mg/dL (0-100); LDL-HDL RATIO 2.2 ratio (1.5-3.5); MAGNESIUM - SERUM 1.3 mg/dL (1.8-2.4); PRO BNP 1128 pg/mL (0-125); TRIGLYCERIDE 123 mg/dL (30-200)
[2017-08-30 04:44] LABS: TROPONIN-I 0.091 ng/mL (0.000-0.060)
[2017-08-30] MEDS ORDERED: ASPIRIN81 MG PO (06:21)
[2017-08-30] MEDS ORDERED: PLAVIX75 MG PO (06:21)
[2017-08-30 06:24] VITALS: BP 126/64; BMI 20.2
[2017-08-30 07:24] LABS: TROPONIN-I 0.112 ng/mL (0.000-0.060)
[2017-08-30 08:00] VITALS: BP 106/64
[2017-08-30] MEDS ORDERED: BETAPACE 80 MG80 MG PO (09:53)
[2017-08-30 10:48] VITALS: Ht 180.3 cm; Wt 65.8 kg
== END 2017-08-30 12:09 | disposition home or self-care (01) | DRG 310 ==
LOC: D.ER 03:36 → D.EDHOLD 05:28 → D.M2 05:39
PROVIDERS: Family Medicine
DX: I48.0 Paroxysmal atrial fibrillation (principal); Z95.0 Presence of cardiac pacemaker; E03.9 Hypothyroidism, unspecified; I10 Essential (primary) hypertension; J44.9 Chronic obstructive pulmonary disease, unspecified; E78.5 Hyperlipidemia, unspecified; F41.9 Anxiety disorder, unspecified; F32.9 Major depressive disorder, single episode, unspecified; Z72.0 Tobacco use

== ENCOUNTER 2018-06-21 18:17 | Emergency (ER) | payer MEDICAID ==
[~2018-06-21] VITALS: Ht 180.3 cm; Wt 68.2 kg
[~2018-06-21 18:17] MED LIST changes: +ASPIRIN81 MG PO; +BETAPACE 80 MG80 MG PO; +PLAVIX75 MG PO
[2018-06-21 18:23] VITALS: Ht 180.3 cm; Wt 68.2 kg
[2018-06-21 20:49] LABS: BASOPHILS 0.4 % (0-2); EOSINOPHILS 0 % (0-7); HEMATOCRIT 29.5 % (42.0-54.0); HEMOGLOBIN 9.8 g/dL (13.5-17.5); IMMATURE GRANULOCYTES 0.3 % (0-5); LYMPHOCYTES 12.6 % (15-50); MCH 32.2 pg (26.0-34.0); MCHC 33.2 g/dL (31.0-37.0); MEAN PLATELET VOLUME 9.3 fL (7.4-10.4); MONOCYTES 3.8 % (2-11); NEUTROPHILS 82.9 % (40-80); RBC 3.04 10x6/uL (4.20-6.10); RDW 14.8 % (11.5-14.5); WBC 7.2 10x3/uL (4.8-10.8)
[2018-06-21 20:53] LABS: PLATELET COUNT 330 10x3/uL (130-400)
[2018-06-21 21:25] LABS: ALBUMIN 3.1 g/dL (3.4-5.0); ANION GAP 21.2 mmol/L (8-16); BILIRUBIN - TOTAL 0.48 mg/dL (0.2-1.3); CREATININE - SERUM 1.5 mg/dL (0.6-1.3); POTASSIUM - SERUM 4.2 mmol/L (3.5-5.1); PROTEIN - SERUM 7.9 g/dL (6.4-8.2); THYROID STIMULATING HORMONE 7.56 uIU/mL (0.36-3.74); TROPONIN-I 0.052 ng/mL (0.000-0.060)
[2018-06-21 21:27] LABS: CALCIUM 6.8 mg/dL (8.5-10.1)
[2018-06-21 22:03] LABS: APPEARANCE CLEAR (CLEAR); BILIRUBIN NEGATIVE (NEGATIVE); COLOR YELLOW (YELLOW); GLUCOSE NEGATIVE (NEGATIVE); KETONE SMALL mg/dL (NEGATIVE); NITRITE NEGATIVE (NEGATIVE); PROTEIN NEGATIVE (NEGATIVE); SPECIFIC GRAVITY 1.025 (1.005-1.020); UROBILINOGEN NORMAL (NORMAL)
[2018-06-22 01:07] VITALS: BP 112/54
== END 2018-06-22 01:07 | disposition home or self-care (01) ==
LOC: D.ER 18:17
PROVIDERS: Family Medicine
DX: E16.2 Hypoglycemia, unspecified (principal); F10.10 Alcohol abuse, uncomplicated; E83.51 Hypocalcemia; I10 Essential (primary) hypertension; J44.9 Chronic obstructive pulmonary disease, unspecified; Z99.81 Dependence on supplemental oxygen; F17.200 Nicotine dependence, unspecified, uncomplicated

== ENCOUNTER 2018-06-27 01:16 | Emergency (ER) | payer MEDICAID ==
[~2018-06-27] VITALS: Ht 180.3 cm; Wt 68.2 kg
[2018-06-27 01:17] VITALS: Ht 180.3 cm; Wt 68.2 kg
[2018-06-27] MEDS ORDERED: ROBAXIN500 MG PO (01:26)
[2018-06-27 04:09] VITALS: BP 136/63
== END 2018-06-27 04:10 | disposition home or self-care (01) ==
LOC: D.ER 01:16
DX: S43.402A Unspecified sprain of left shoulder joint, initial encounter (principal); W18.30XA Fall on same level, unspecified, initial encounter; Y93.89 Activity, other specified; Y92.019 Unspecified place in single-family (private) house as the place of occurrence of the external cause; S16.1XXA Strain of muscle, fascia and tendon at neck level, initial encounter; I10 Essential (primary) hypertension; J44.9 Chronic obstructive pulmonary disease, unspecified

== ENCOUNTER 2018-06-30 23:50 | Emergency (ER) | payer MEDICAID ==
[~2018-06-30] VITALS: Ht 180.3 cm; Wt 68.2 kg
[~2018-06-30 23:50] MED LIST changes: +ROBAXIN500 MG PO
[2018-06-30 23:51] VITALS: Ht 180.3 cm; Wt 68.2 kg
[2018-07-01] MEDS ORDERED: EC-NAPROSYN500 MG PO (01:23)
[2018-07-01 01:34] VITALS: BP 138/76
== END 2018-07-01 01:34 | disposition home or self-care (01) ==
LOC: D.ER 23:50
DX: M53.3 Sacrococcygeal disorders, not elsewhere classified (principal); W18.30XA Fall on same level, unspecified, initial encounter; Y93.89 Activity, other specified; Y92.019 Unspecified place in single-family (private) house as the place of occurrence of the external cause; F17.200 Nicotine dependence, unspecified, uncomplicated

== ENCOUNTER 2018-07-03 02:16 | Emergency (ER) | payer MEDICAID ==
[~2018-07-03] VITALS: Ht 180.3 cm; Wt 68.2 kg
[~2018-07-03 02:16] MED LIST changes: +EC-NAPROSYN500 MG PO
[2018-07-03 02:18] VITALS: Ht 180.3 cm; Wt 68.2 kg
[2018-07-03 03:44] VITALS: BP 119/65
== END 2018-07-03 03:44 | disposition home or self-care (01) ==
LOC: D.ER 02:16
DX: T85.848A Pain due to other internal prosthetic devices, implants and grafts, initial encounter (principal); F17.200 Nicotine dependence, unspecified, uncomplicated

== ENCOUNTER 2018-07-06 18:49 | Emergency (ER) | payer MEDICAID ==
[~2018-07-06] VITALS: Ht 180.3 cm; Wt 68.2 kg
[2018-07-06 18:54] VITALS: BP 131/71; Ht 180.3 cm; Wt 68.2 kg
== END 2018-07-06 20:00 | disposition left against medical advice (07) ==
LOC: D.ER 18:49
DX: T85.848A Pain due to other internal prosthetic devices, implants and grafts, initial encounter (principal)

== ENCOUNTER 2018-07-08 22:37 | Emergency (ER) | payer MEDICARE ==
[~2018-07-08] VITALS: Ht 180.3 cm; Wt 72.7 kg
[2018-07-08 22:41] VITALS: Ht 180.3 cm; Wt 72.7 kg
[2018-07-08] MEDS ORDERED: CLEOCIN HCL150 MG PO (22:53)
[2018-07-08] MEDS ORDERED: HYDROCODON-ACE1 EAC7 PO (22:53)
[2018-07-08 23:02] LABS: BASOPHILS 0.3 % (0-2); EOSINOPHILS 1.2 % (0-7); HEMATOCRIT 30.8 % (42.0-54.0); HEMOGLOBIN 10.4 g/dL (13.5-17.5); IMMATURE GRANULOCYTES 0.2 % (0-5); LYMPHOCYTES 30.7 % (15-50); MCH 32.3 pg (26.0-34.0); MCHC 33.8 g/dL (31.0-37.0); MCV 95.7 fL (80.0-100.0); MEAN PLATELET VOLUME 9.1 fL (7.4-10.4); NEUTROPHILS 62.6 % (40-80); RBC 3.22 10x6/uL (4.20-6.10); RDW 16.1 % (11.5-14.5)
[2018-07-08 23:03] LABS: PLATELET COUNT 137 10x3/uL (130-400)
[2018-07-08 23:20] LABS: ALBUMIN 3.1 g/dL (3.4-5.0); ALKALINE PHOSPHATASE 78 U/L (46-116); ALT (SGPT) 16 U/L (10-68); BILIRUBIN - TOTAL 0.61 mg/dL (0.2-1.3); CHLORIDE - SERUM 107 mmol/L (98-107); CREATININE - SERUM 0.9 mg/dL (0.6-1.3); PROTEIN - SERUM 7.3 g/dL (6.4-8.2); SODIUM 147 mmol/L (136-145); UREA NITROGEN 11 mg/dL (7-18); eGFR NON AFRICAN AMERICAN 90 mL/min (90-120)
[2018-07-08 23:21] LABS: CALC OSMOLALITY 289 mosm/kg (275-300); GLUCOSE 74 mg/dL (74-106)
[2018-07-08 23:22] LABS: CALCIUM 5.8 mg/dL (8.5-10.1)
[2018-07-08] MEDS ORDERED: OS-CAL500 MG PO (23:27)
[2018-07-08 23:41] VITALS: BP 132/70
== END 2018-07-08 23:44 | disposition home or self-care (01) ==
LOC: D.ER 22:37
PROVIDERS: Emergency Medicine
DX: K94.23 Gastrostomy malfunction (principal); E83.51 Hypocalcemia

== ENCOUNTER 2018-07-17 21:22 | Emergency (ER) | payer MEDICARE ==
[~2018-07-17] VITALS: Ht 180.3 cm; Wt 68.2 kg
[~2018-07-17 21:22] MED LIST changes: +CLEOCIN HCL150 MG PO; +HYDROCODON-ACE1 EAC7 PO; +OS-CAL500 MG PO
[2018-07-17 21:43] VITALS: Ht 180.3 cm; Wt 68.2 kg
[2018-07-17] MEDS ORDERED: NAPROSYN500 MG PO (23:38)
[2018-07-17 23:43] VITALS: BP 131/68
== END 2018-07-17 23:44 | disposition home or self-care (01) ==
LOC: D.ER 21:22
DX: M54.5 Low back pain (principal); W18.30XA Fall on same level, unspecified, initial encounter; Y93.89 Activity, other specified; Y92.019 Unspecified place in single-family (private) house as the place of occurrence of the external cause; R51 Headache; F10.11 Alcohol abuse, in remission; I10 Essential (primary) hypertension; J44.9 Chronic obstructive pulmonary disease, unspecified; Z99.81 Dependence on supplemental oxygen; F17.200 Nicotine dependence, unspecified, uncomplicated

== ENCOUNTER 2018-07-19 13:26 | Emergency (ER) | payer MEDICARE ==
[~2018-07-19] VITALS: Ht 180.3 cm; Wt 68.2 kg
[~2018-07-19 13:26] MED LIST changes: +NAPROSYN500 MG PO
[2018-07-19 13:30] VITALS: Ht 180.3 cm; Wt 68.2 kg
[2018-07-19 14:05] LABS: BASOPHILS 0.5 % (0-2); EOSINOPHILS 0.5 % (0-7); HEMATOCRIT 33.9 % (42.0-54.0); HEMOGLOBIN 11.2 g/dL (13.5-17.5); MCH 32.1 pg (26.0-34.0); MCV 97.1 fL (80.0-100.0); MEAN PLATELET VOLUME 9.6 fL (7.4-10.4); MONOCYTES 14.9 % (2-11); NEUTROPHILS 72.1 % (40-80); PLATELET COUNT 235 10x3/uL (130-400); RBC 3.49 10x6/uL (4.20-6.10); RDW 16.7 % (11.5-14.5); WBC 6.2 10x3/uL (4.8-10.8)
[2018-07-19 14:21] LABS: ALKALINE PHOSPHATASE 84 U/L (46-116); ALT (SGPT) 42 U/L (10-68); BILIRUBIN - TOTAL 0.69 mg/dL (0.2-1.3); CALC OSMOLALITY 282 mosm/kg (275-300); CARBON DIOXIDE 27.8 mmol/L (21.0-32.0); CHLORIDE - SERUM 101 mmol/L (98-107); GLUCOSE 108 mg/dL (74-106); POTASSIUM - SERUM 3.4 mmol/L (3.5-5.1); PROTEIN - SERUM 7.7 g/dL (6.4-8.2); SODIUM 142 mmol/L (136-145); UREA NITROGEN 11 mg/dL (7-18); URIC ACID 6.6 mg/dL (2.6-7.2); eGFR NON AFRICAN AMERICAN 80 mL/min (90-120)
[2018-07-19] MEDS ORDERED: PREDNISONE20 MG PO (15:48)
[2018-07-19] MEDS ORDERED: TORADOL10 MG PO (15:50)
[2018-07-19 17:20] VITALS: BP 119/64
== END 2018-07-19 17:20 | disposition home or self-care (01) ==
LOC: D.ER 13:26
PROVIDERS: Family Medicine
DX: M10.072 Idiopathic gout, left ankle and foot (principal); Z98.890 Other specified postprocedural states; E83.51 Hypocalcemia

== ENCOUNTER 2018-08-28 01:53 | Emergency (ER) | payer MEDICARE ==
[~2018-08-28] VITALS: Ht 180.3 cm; Wt 63.6 kg
[~2018-08-28 01:53] MED LIST changes: +TORADOL10 MG PO
[2018-08-28 01:55] VITALS: Ht 180.3 cm; Wt 63.6 kg
[2018-08-28 03:12] VITALS: BP 159/80
== END 2018-08-28 03:13 | disposition home or self-care (01) ==
LOC: D.ER 01:53
DX: M54.5 Low back pain (principal); R10.9 Unspecified abdominal pain

== ENCOUNTER 2018-08-28 18:44 | Inpatient (IN) | payer MEDICARE ==
[~2018-08-28] VITALS: Ht 180.3 cm; Wt 75.1 kg
[2018-08-28 20:02] LABS: HEMATOCRIT 35.7 % (42.0-54.0); HEMOGLOBIN 11.5 g/dL (13.5-17.5); MCH 31.7 pg (26.0-34.0); MCHC 32.2 g/dL (31.0-37.0); MCV 98.3 fL (80.0-100.0); MEAN PLATELET VOLUME 10.4 fL (7.4-10.4); RBC 3.63 10x6/uL (4.20-6.10); RDW 18.3 % (11.5-14.5); WBC 15.8 10x3/uL (4.8-10.8)
[2018-08-28 20:03] LABS: PLATELET COUNT 297 10x3/uL (130-400)
[2018-08-28 20:40] LABS: ALBUMIN 3.4 g/dL (3.4-5.0); ANION GAP 29.9 mmol/L (8-16); BILIRUBIN - TOTAL 4.24 mg/dL (0.2-1.3); CARBON DIOXIDE 16.1 mmol/L (21.0-32.0); CREATININE - SERUM 1.5 mg/dL (0.6-1.3); PROTEIN - SERUM 8.5 g/dL (6.4-8.2)
[2018-08-28 20:42] LABS: CALCIUM 5.6 mg/dL (8.5-10.1)
--- NOTE | 2018-08-28 20:58 | NUR ---
CALLED TO PATIENTS ROOM, HE STATES HE IS HAVING ABD PAIN, PROVIDER NOTIFIED NO NEW ORDERS GIVEN AT THIS TIME. CALL LIGHT WITHIN REACH
[2018-08-28 21:58] LABS: LYMPHOCYTES 3 % (15-50); NEUTROPHILS 97 % (40-80); PLATELET ESTIMATE NORMAL
[2018-08-29] VITALS (9 sets, daily range): BP systolic 122–145; BP diastolic 71–87; Ht 180.3 cm; Wt 75.1 kg
[2018-08-29 00:48] LABS: APPEARANCE SL CLDY (CLEAR); COLOR DK YELLOW (YELLOW); SPECIFIC GRAVITY 1.025 (1.005-1.020)
[2018-08-29 00:50] LABS: BILIRUBIN 1+ (NEGATIVE); GLUCOSE NEGATIVE (NEGATIVE); GRANULAR CAST OCC /lpf (NONE SEEN); HYALINE CAST OCC /lpf (NONE SEEN); KETONE SMALL mg/dL (NEGATIVE); MUCUS <1+ /lpf (NONE SEEN); NITRITE NEGATIVE (NEGATIVE); PROTEIN 2+ mg/dL (NEGATIVE); WHITE CELLS - URINE OCC /hpf (0-5)
[2018-08-29 00:51] LABS: BACTERIA MANY /hpf (NONE SEEN); RED CELLS - URINE 0-5 /hpf (0-5)
--- NOTE | 2018-08-29 01:13 | NUR ---
REPORT GIVEN TO SCOTT BAXTER
--- NOTE | 2018-08-29 02:28 | NUR ---
PT ALERT. STATES IS HAVING MORE BACK PAIN. MORPHINE 4 AND ZOFRAN 4 GIVEN. LASIX ALSO GIVEN AT THIS TIME. PT HAS URINAL AT BEDSIDE.
--- NOTE | 2018-08-29 04:53 | NUR ---
COKE AND ICE TO PATIENT.
--- NOTE | 2018-08-29 05:14 | NUR ---
RESTING QUIETLY WITH EYES CLOSED.
--- NOTE | 2018-08-29 05:33 | NUR ---
PT AWAKE AND REQUESTING BREATHING TREATMENT. TAKES KODY NEB AT HOME FOR HIS COPD. WILL CALL R/T FOR TREATMENT.
--- NOTE | 2018-08-29 07:00 | NUR ---
REPORT TO VEE CHING.
--- NOTE | 2018-08-29 08:11 | NUR ---
PT HISTORY AND ASSESSMENT COMPLETED. PT IS RESTLESS, VOICING MILD ANXIETY AT THIS TIME. PT ABLE TO PROVIDE SOME MEDICAL HISTORY. UNABLE TO PROVIDE MEDICATIONS CURRENTLY ON AND UNABLE TO IDENTIFY WHEN LAST DOSE OF MEDICATIONS WERE TAKEN AT HOME.
[2018-08-29 09:59] LABS: % SATURATION 66 % (15-55); IRON 150 ug/dl (35-150); TOTAL IRON BIND CAPACITY 226 ug/dl (260-445); UNSAT IRON BIND CAPACITY 76 ug/dl (150-375)
[2018-08-29 10:20] LABS: APTT 29.6 SECONDS (22.8-39.4); INR 1.78 (0.85-1.17); PROTIME 20.1 SECONDS (11.6-15.0)
[2018-08-29 10:35] LABS: MAGNESIUM - SERUM 1.3 mg/dL (1.8-2.4)
--- NOTE | 2018-08-29 14:13 | MORECARE ---
CASE MANAGEMENT DISCHARGE SUMMARY PATIENT: TERA GREEN UNIT: [id number] ADM DATE: 08/29/18 AGE: 63 : 51 SEX: M ROOM/BED: D.E08 AUTHOR: TAYDOC PHYSICIAN: REFERRING PHYSICIAN: SHLOMO VARMA MD DATE OF SERVICE: 08/29/18 Discharge Plan Patient Name: TERA GREEN Facility: [facility]:[place] : 1955 Planned Disposition: Home Anticipated Discharge Date: 08/31/18 Discharge Date: Expected LOS: 2 Initial Reviewer: [email or web address] Initial Review Date: 08/29/2018 Generated: 08/29/18 3:13 pm DCP- Discharge Planning Updated by [email or web address]: Nellie Magaña on 08/29/18 1:[address] Patient Name: TERA GREEN Admission Status: ER Accout number: [id number] Admission Date: 08-29-2018 : 1955 Admission Diagnosis: Attending: SHLOMO VARMA Current LOS: 1 Anticipated DC Date: 08-31-2018 Planned Disposition: Home Primary Insurance: MEDICARE A & B Discharge Planning Comments: CM met with patient to complete initial dc planning assessment. CM educated patient on the CM role and verbal consent given by patient to complete assessment. Patient lives at home alone in an apartment building with elevator access. At discharge patient plans to return home alone and feels this is a safe discharge. He reports he has a house keeper to assist with house cleaning. CM discussed availability of home health, rehab services, and medical equipment. Patient stated he may want home health at time of dc explained that he will have to have a PCP to sign his home health orders. He verbalized understanding. If Dr. Varma follows up with patient he may sign HH orders if HH is needed at time of dc. CM will continue to follow and will assist as needed with dc plans/needs. Rn Telephone Triage: Nellie Magaña RN, [facility] DCPIA - Discharge Planning Initial Assessment Updated by [email or web address]: Nellie Magaña on 08/29/18 2:07 pm * Is the patient Alert and Oriented? Yes * How many steps to enter\exit or inside your home? elevator * PCP Does not have a PCP * Pharmacy [facility] [address] * Preadmission Environment Home Alone * ADLs Independent * Equipment Oxygen * List name and contact numbers for known caregivers / representatives who currently or will assist patient after discharge: Teresas Swanson - [facility] [phone] * Verbal permission to speak to the caregivers and representatives has been obtained from the patient. Yes * Community resources currently utilized None * Additional services required to return to the preadmission environment? Yes * Can the patient safely return to the preadmission environment? Yes * Has this patient been hospitalized within the prior 30 days at any hospital? Yes Patient Name: TERA GREEN Page [id number] at 1413 All edits/amendments must be made on the electronic document DICTATION DATE: 08/29/181412 ACADEMIC MANAGER: CELESTINA 08/29/181412 RPT#: [id number] DC DATE: STATUS: ADM IN [facility] [address] [place] [address] END OF REPORT
--- NOTE | 2018-08-29 18:35 | NUR ---
PATIENT ARRIVED TO THE FLOOR VIA STRETCHER. BEREKET RODRIGUEZ. AKANKSHA COMPLAINS OF NAUSEA BUT IS WITHOUT VOMITING AT THIS TIME. PATIENT DENIES ANY NEEDS AT THIS TIME. BED IS IN LOW POSITION AND CALL LIGHT IS IN REACH
--- NOTE | 2018-08-29 20:00 | NUR ---
RECIEVED BEDSIDE REPORT. ROUNDS COMPLETED. VSS, AAOX2. WITH A LITTLE CONFUSION. PT STATES HE IS HURTING IN HIS LOWER BACK. WILL TREAT WITH 2100 MEDS. PT STATES HE IS SOB AT THIS TIME, PLACED PT ON 2L O2. 02 SAT AT 96 AT THIS TIME. WILL CTM. CL IN REACH, BED IN LOW, SR UP X2.
[2018-08-30] VITALS: BP 126/79
--- NOTE | 2018-08-30 01:38 | NUR ---
PT STATES HE IS STILL FEELING PAIN ON HIS BACK. NEXT DOSE OF PAIN PILL DUE AT 0300. TYLENOL ADMINISTERED AT THIS TIME. PT ALSO STATES HE FEELS LIKE "PEEING" BUT NOT IS COMING OUT. PERFORMED A QUICK IN OUT, BUT NO URINE IN THE BLADDER. WILL CTM. CL IN REACH, BED IN LOW, SR UP X2.
--- NOTE | 2018-08-30 02:40 | NUR ---
PT PLACED ON TELE. CURRENTLY 71 PACED. WILL CPOC. CL IN REACH, BED IN LOW. SR UP X2.
[2018-08-30 04:00] VITALS: BP 122/80
[2018-08-30 06:14] LABS: HEPATITIS C ANTIBODY <0.1 S/CO RAT (0.0-0.9)
[2018-08-30 06:29] LABS: ALBUMIN 2.6 g/dL (3.4-5.0); ALKALINE PHOSPHATASE 242 U/L (46-116); BILIRUBIN - TOTAL 1.08 mg/dL (0.2-1.3); CHLORIDE - SERUM 107 mmol/L (98-107); CREATININE - SERUM 1.7 mg/dL (0.6-1.3); POTASSIUM - SERUM 3.7 mmol/L (3.5-5.1); PROTEIN - SERUM 6.5 g/dL (6.4-8.2); SODIUM 146 mmol/L (136-145); eGFR NON AFRICAN AMERICAN 43 mL/min (90-120)
[2018-08-30 06:30] LABS: BASOPHILS 0.2 % (0-2); EOSINOPHILS 0.2 % (0-7); HEMATOCRIT 32.6 % (42.0-54.0); HEMOGLOBIN 10.5 g/dL (13.5-17.5); IMMATURE GRANULOCYTES 1.3 % (0-5); MCH 30.6 pg (26.0-34.0); MCHC 32.2 g/dL (31.0-37.0); MONOCYTES 5.8 % (2-11); NEUTROPHILS 85.5 % (40-80); PLATELET COUNT 275 10x3/uL (130-400); RBC 3.43 10x6/uL (4.20-6.10)
[2018-08-30 06:32] LABS: WBC 11.6 10x3/uL (4.8-10.8)
[2018-08-30 07:12] LABS: ALT (SGPT) 816 U/L (10-68); CALC OSMOLALITY 302 mosm/kg (275-300); CARBON DIOXIDE 25.9 mmol/L (21.0-32.0); GLUCOSE 109 mg/dL (74-106); UREA NITROGEN 44 mg/dL (7-18)
[2018-08-30 07:13] LABS: CALCIUM < 5.0 mg/dL (8.5-10.1)
[2018-08-30 07:29] LABS: FOLATE (FOLIC ACID) - SERUM >20.0 ng/mL (>3.0)
--- NOTE | 2018-08-30 07:46 | NUR ---
REPORT RECEIVED. WILL CONTINUE WITH POC. PT IS AAO AND UP WITH ASSIST. RR EVEN AND UNLABORED ON RA. R.AC PIV IS SALINE LOCKED. CRITICAL CALCIUM LESS THAN 5.0. NOTIFIED ISHA NAGY WHO ORDERED CALCITROL 0.25MCG BID. NO S/S DISTRESS NOTED. WILL CTM.
[2018-08-30 08:34] VITALS: BP 128/81
[2018-08-30 11:31] VITALS: BP 120/78
--- NOTE | 2018-08-30 12:15 | NUR ---
LEVAQUIN WAS INFUSING AND ENTERED THE ROOM TO FIND PT TRYING TO GET OUT OF BED WITH PT STATING "ELLEN GOT TO GET HOME, I NEED TO GET INTO MY ROOM AND GET ON THE COUCH." PT IS ORIENTED TO PLACE AND PERSON BUT IS CONFUSED TO SITUATION. REORIENTED PT AND REAPPLIED BED ALARM. PT REMOVED PIV WHILE LEVAQUIN WAS INFUSING. STOPPED INFUSION R/T PT NONCOMPLIANCE. PIV IS STILL IN PLACE. WILL CTM.
--- NOTE | 2018-08-30 12:38 | NUR ---
I have reviewed this patient and I concur with the Shift Assessment completed by the Licensed Practical Nurse today this shift.
--- NOTE | 2018-08-30 14:30 | NUR ---
PT CALLED [place] [employer] SEVERAL TIMES STATING "I HAVE BEEN ABDUCTED." PT IS COMBATIVE AND REFUSES ANY MEDICATIONS. PT YELLING INTO HALLWAY "GET THE POLICE AND TAKE ME HOME. IM IN THE WRONG ROOM." CALLED ISHA NAGY WHO ORDERED 10MG OF GEODON IM. PT REFUSED THE SHOT. GATHERED HELP AND PT RECEIVED THE GEODON SHOT. PT ALSO STATED THAT HE WANTED TO SIGN THE FORM STATING HE WOULD BE LIABLE IF HE WERE TO FALL FROM BED. PT DID SIGN FORM AND IT WAS PLACED IN SHOT. PT IS NOW LYING SEMI FOWLERS. CALL LIGHT W/I REACH. WILL CTM.
[2018-08-30 16:17] VITALS: BP 141/67
--- NOTE | 2018-08-30 17:05 | NUR ---
PT IN 2132 STATES THAT THE PT IN 2131 WAS ENTERING HER ROOM IN HIS BRIEFS ASKING FOR A CIGARETTE. REINSTRUCTED PT BACK TO ROOM WHERE HE IS LYING SEMI FOLWERS. CALL LIGHT W/I REACH. REORIENTED PT. NOTIFIED PHYSICIAN WHO DID NOT GIVE ANY PARTICULAR INSTRUCTION. WILL CTM.
--- NOTE | 2018-08-30 19:25 | NUR ---
RESUMED CARE FROM LEIDY LIRA. PT HAS CLOTHES ON WITH BAG PACKED. STATES, "IM GOING HOME. I'M AFRAID SOMEONE IS GOING TO STEAL MY TRUCK." ASKED PT TO STAY WITH US TONIGHT SO HE CAN TALK TO IN AM. PT AGREED. PT COMPLAINS OF PAIN IN BACK PRN PAIN MEDICATION GIVEN. SEE MAR. PT IN BED ALERT AND NO S/S OF DISTRESS. WILL CONTINUE TO MONITOR.
[2018-08-30 20:00] VITALS: BP 126/80
--- NOTE | 2018-08-31 00:21 | NUR ---
PT STATES HE IS LEAVING ROOM TO GO SMOKE A CIGERETTE. EXPLAINED TO PT THAT SMOKING IS NOT ALLOWED INSIDE OR OUTSIDE HOSPITAL. PT STATED, "LET ME SIGN WHATEVER PAPERS I NEED TO SO I CAN GO GET CIGERRETS AND MY TRUCK." PT GAIT UNSTABLE AND PT CONFUSED ABOUT SITIUATION. DR. DELEON AND FOUNTAIN VENDING MECHANIC NOTIFIED. CALLED SISTER LUISA NO ANSWER. SONNY RN SPOKE WITH PT AND HE NOW AGREES TO STAY. BED LOW CALL LIGHT WITHIN REACH. WILL CONTINUE TO MONITOR.
--- NOTE | 2018-08-31 02:55 | NUR ---
PT RESTING IN BED ALERT. RR EVEN AND UNLABORED. PT COMPLAINED OF PAIN IN SPINE. PRN PAIN MED GIVEN. NO S/S OF DISTRESS. BED LOW CALL LIGHT WITHIN REACH. WILL CONTINUE TO MONITOR.
--- NOTE | 2018-08-31 03:57 | NUR ---
PT WONDERED OUT INTO HALLWAY LOOKING FOR BATHROOM. REORIENTED PT TO ROOM AND BATHEROOM. WILL CONTINUE TO MONITOR.
--- NOTE | 2018-08-31 04:31 | NUR ---
I have reviewed this patient and I concur with the Shift Assessment completed by the Licensed Practical Nurse today this shift.
[2018-08-31 05:00] VITALS: BP 128/61
--- NOTE | 2018-08-31 05:12 | NUR ---
PT WALKING AROUND IN HALLWAY LOOKING FOR HIS 55INCH TV. HELPED PT BACK TO ROOM. PT IN BED. BED LOW CALL LIGHT WITHIN REACH. DANIEL;L CONTINUE TO MONITOR.
[2018-08-31 07:09] LABS: BASOPHILS 0.1 % (0-2); EOSINOPHILS 0.4 % (0-7); HEMATOCRIT 31.1 % (42.0-54.0); HEMOGLOBIN 10.2 g/dL (13.5-17.5); IMMATURE GRANULOCYTES 0.6 % (0-5); MCH 31.5 pg (26.0-34.0); MCHC 32.8 g/dL (31.0-37.0); MEAN PLATELET VOLUME 10.1 fL (7.4-10.4); MONOCYTES 6.7 % (2-11); NEUTROPHILS 83.2 % (40-80); PLATELET COUNT 220 10x3/uL (130-400); RBC 3.24 10x6/uL (4.20-6.10); RDW 18.4 % (11.5-14.5)
--- NOTE | 2018-08-31 07:15 | NUR ---
REPORT RECIUEVED AND MORNING ROUNDING COMPLETE. PT SITTING IN CHAIR STATING HE WOULD LIKE TO GO HOME AND GET HIS TRUCK. PT STATES NO NEEDS AT THIS TIME CALL LIGHT WITHIN REACH.
[2018-08-31 07:17] LABS: INR 1.5 (0.85-1.17); PROTIME 17.5 SECONDS (11.6-15.0)
[2018-08-31 07:29] LABS: ALBUMIN 2.9 g/dL (3.4-5.0); ALKALINE PHOSPHATASE 217 U/L (46-116); ALT (SGPT) 704 U/L (10-68); AMYLASE - SERUM 31 U/L (25-115); BILIRUBIN - TOTAL 1.14 mg/dL (0.2-1.3); CALC OSMOLALITY 300 mosm/kg (275-300); CARBON DIOXIDE 24.5 mmol/L (21.0-32.0); CHLORIDE - SERUM 103 mmol/L (98-107); CHOL - HDL RATIO 2.6 ratio (2.3-4.9); CHOLESTEROL, TOTAL 159 mg/dL (0-200); CREATININE - SERUM 1.8 mg/dL (0.6-1.3); GLUCOSE 129 mg/dL (74-106); HDL CHOLESTEROL 62 mg/dL (32-96); LDL CHOLESTEROL 82 mg/dL (0-100); LDL-HDL RATIO 1.3 ratio (1.5-3.5); LIPASE 68 U/L (73-393); POTASSIUM - SERUM 3.5 mmol/L (3.5-5.1); PROTEIN - SERUM 7.1 g/dL (6.4-8.2); SODIUM 144 mmol/L (136-145); TRIGLYCERIDE 75 mg/dL (30-200); UREA NITROGEN 46 mg/dL (7-18); eGFR NON AFRICAN AMERICAN 40 mL/min (90-120)
[2018-08-31 07:47] LABS: MAGNESIUM - SERUM 1.7 mg/dL (1.8-2.4)
[2018-08-31 07:55] LABS: CALCIUM < 5.0 mg/dL (8.5-10.1)
[2018-08-31 07:56] LABS: WBC 8.2 10x3/uL (4.8-10.8)
[2018-08-31 08:32] VITALS: BP 157/70
--- NOTE | 2018-08-31 10:56 | NUR ---
PT UNHOOKED IV FROM ARM AND FLUIDS WERE ON THE FLOOR. PT WOULD NOT LET ME REHOOK HIM BACK UP TO IV. HE RECIEVED ABOUT HALF OF THE IV THERAPY BAGS. PT STATES HE WILL NOT BE HOOKED BACK UP TODAY.
[2018-08-31] MEDS ORDERED: LEVAQUIN750 MG PO (11:30)
[2018-08-31] MEDS ORDERED: FLAGYL500 MG PO (11:31)
[2018-08-31 12:04] VITALS: BP 144/76
--- NOTE | 2018-08-31 12:31 | NUR ---
SPOKE WITH PT'S SISTER ABOUT PT DISCHARGING, PT'S SISTER STATED TO CALL FELISA ABOUT PICKING HIM UP. FELISA STATED SHE IS AT WORK AND TO CALL A CAB FOR PT. PT'S SISTER SAID THE SAME THING IF FELISA COULDNT SENIOR MEDICAL WRITER THEN TO HAVE HIM CALL A [employer] TO GET HIM.
--- NOTE | 2018-08-31 13:12 | NUR ---
REMOVED PT'S RIGHT PIV. NO BLEEDING NOTED. PRESSURE HELD FOR 2 MIN. PIV CATH INTACT. PT STATED HE UNDERSTOOD ALL DISCHARGE INSTRUCTIONS. NO OTHER NEEDS AT THIS TIME. VOLUNTEER TOOK PT DOWN TO FRONT DOOR. PT CALLED A [employer] TO PICK HIM UP.
--- NOTE | 2018-08-31 15:08 | MORECARE ---
CASE MANAGEMENT DISCHARGE SUMMARY PATIENT: TERA GREEN UNIT: [id number] ADM DATE: 08/29/18 AGE: 63 : 51 SEX: M ROOM/BED: D.2132 AUTHOR: TAYDOC PHYSICIAN: REFERRING PHYSICIAN: SHLOMO VARMA MD DATE OF SERVICE: 08/31/18 Discharge Plan Patient Name: TERA GREEN Facility: [facility]:[place] : 1955 Planned Disposition: Home Anticipated Discharge Date: 08/31/18 Discharge Date: 08/31/2018 Expected LOS: 2 Initial Reviewer: [email or web address] Initial Review Date: 08/29/2018 Generated: 08/31/18 4:08 pm Comments DCP- Discharge Planning Updated by [email or web address]: Floyd Mccall on 08/31/18 2:[address] Patient Name: TERA GREEN Encounter No: [id number] : 1955 Primary Insurance: MEDICARE A & B Anticipated DC Date: 08-31-2018 Planned Disposition: Home DCP follow-up note: CM MET WITH PT AT [facility], PT DEMANDING TO LEAVE HOSPITAL NOW. CM DISCUSSED DISCHARGE NEEDS AND PLANNING. CM DISCUSSED AVAILABILITY OF HOME HEALTH, REHAB SERVICES AND MEDICAL EQUIPMENT. PT DENIES DISCHARGE NEEDS. PT DENIES NEED OF REHAB INFORMATION OR PLACEMENT; PT STATES HE TOOK HIS LAST SHOT OF ALCOHOL THREE DAYS AGO AND HAS NO MORE AT HOME. PT PLEDGED TO DRINK NO MORE. PT WILL CALL [employer]AX[employer] TO TRANSPORT HOME AT DISCHARGE. IMPORTANT MESSAGE FROM MEDICARE PROVIDED AND EXPLAINED. PEPPER Suarez DCP- Discharge Planning Updated by [email or web address]: Nellie Magaña on 08/29/18 1:[address] Patient Name: TERA GREEN Admission Status: ER Accout number: [id number] Admission Date: 08-29-2018 : 1955 Admission Diagnosis: Attending: SHLOMO VARMA Current LOS: 1 Anticipated DC Date: 08-31-2018 Planned Disposition: Home Primary Insurance: MEDICARE A & B Discharge Planning Comments: CM met with patient to complete initial dc planning assessment. CM educated patient on the CM role and verbal consent given by patient to complete assessment. Patient lives at home alone in an apartment building with elevator access. At discharge patient plans to return home alone and feels this is a safe discharge. He reports he has a house keeper to assist with house cleaning. CM discussed availability of home health, rehab services, and medical equipment. Patient stated he may want home health at time of dc explained that he will have to have a PCP to sign his home health orders. He verbalized understanding. If Dr. Varma follows up with patient he may sign HH orders if HH is needed at time of dc. CM will continue to follow and will assist as needed with dc plans/needs. Electronic Assembler Group Leader: Nellie Magaña RN, [facility] DCPIA - Discharge Planning Initial Assessment Updated by [email or web address]: Nellie Magaña on 08/29/18 2:07 pm * Is the patient Alert and Oriented? Yes * How many steps to enter\exit or inside your home? elevator * PCP Does not have a PCP * Pharmacy [facility] [address] * Preadmission Environment Home Alone * ADLs Independent * Equipment Oxygen * List name and contact numbers for known caregivers / representatives who currently or will assist patient after discharge: Teressa Phanler [facility] [phone] * Verbal permission to speak to the caregivers and representatives has been obtained from the patient. Yes * Community resources currently utilized None * Additional services required to return to the preadmission environment? Yes * Can the patient safely return to the preadmission environment? Yes * Has this patient been hospitalized within the prior 30 days at any hospital? Yes Coverage Notice Reviewer: [email or web address] Leydi Mccall Notice Issued Date-Time: 08/31/2018 12:10 Notice Type: IM Discharge Notice Notice Delivered To: Patient Relationship to Patient: Absorber Operator Name: Delivery Method: HAND - Hand Delivered Alecia Days: Prior Verbal Notification: Recipient Understood Notice: Yes Recipient Signature: Yes Med Rec Note Co-signed by Attending: Coverage Notice Comment: Last DP export: 08/29/18 1:13 p Patient Name: TERA GREEN Page [id number] at 1508 All edits/amendments must be made on the electronic document DICTATION DATE: 08/31/18 1500 MAIL TRUCK DRIVER: CELESTINA 08/31/18 1508 RPT#: [id number] DC DATE:08/31/18 STATUS: DIS IN [facility] [address] [place] [address] END OF REPORT
[2018-09-06] MEDS ORDERED: LEVOXYL50 MCG PO (02:13)
== END 2018-08-31 13:24 | disposition home or self-care (01) | DRG 433 ==
LOC: D.ER 18:44 → D.EDHOLD 08-29 02:14 → D.M2 08-29 02:14
PROVIDERS: Family Medicine; Internal Medicine Gastroenterology; ADMIT Internal Medicine Nephrology; ATTEND Internal Medicine Nephrology
DX: K70.11 Alcoholic hepatitis with ascites (principal); A09 Infectious gastroenteritis and colitis, unspecified; J98.11 Atelectasis; N17.9 Acute kidney failure, unspecified; F17.213 Nicotine dependence, cigarettes, with withdrawal; F10.239 Alcohol dependence with withdrawal, unspecified; N39.0 Urinary tract infection, site not specified; G31.2 Degeneration of nervous system due to alcohol; M54.9 Dorsalgia, unspecified; D50.9 Iron deficiency anemia, unspecified; E83.51 Hypocalcemia; J44.9 Chronic obstructive pulmonary disease, unspecified; E03.9 Hypothyroidism, unspecified; Z95.0 Presence of cardiac pacemaker

== ENCOUNTER 2018-09-06 02:09 | Emergency (ER) | payer MEDICARE ==
[~2018-09-06] VITALS: Ht 180.3 cm; Wt 63.6 kg
[~2018-09-06 02:09] MED LIST changes: +FLAGYL500 MG PO; +LEVAQUIN750 MG PO
[2018-09-06 02:11] VITALS: Ht 180.3 cm; Wt 63.6 kg
[2018-09-06] MEDS ORDERED: LEVOXYL50 MCG (02:13)
[2018-09-06 02:56] LABS: BASOPHILS 0.1 % (0-2); EOSINOPHILS 0.7 % (0-7); HEMATOCRIT 31.4 % (42.0-54.0); HEMOGLOBIN 10.2 g/dL (13.5-17.5); IMMATURE GRANULOCYTES 0.4 % (0-5); LYMPHOCYTES 8.3 % (15-50); MCH 30.8 pg (26.0-34.0); MCHC 32.5 g/dL (31.0-37.0); MCV 94.9 fL (80.0-100.0); MEAN PLATELET VOLUME 10.4 fL (7.4-10.4); MONOCYTES 9.8 % (2-11); NEUTROPHILS 80.7 % (40-80); PLATELET COUNT 150 10x3/uL (130-400); RBC 3.31 10x6/uL (4.20-6.10); RDW 19.4 % (11.5-14.5); WBC 9.6 10x3/uL (4.8-10.8)
[2018-09-06 03:28] LABS: ALBUMIN 2.5 g/dL (3.4-5.0); ALKALINE PHOSPHATASE 173 U/L (46-116); ALT (SGPT) 176 U/L (10-68); CALC OSMOLALITY 290 mosm/kg (275-300); CARBON DIOXIDE 25.5 mmol/L (21.0-32.0); CHLORIDE - SERUM 106 mmol/L (98-107); GLUCOSE 118 mg/dL (74-106); PROTEIN - SERUM 6.5 g/dL (6.4-8.2); SODIUM 145 mmol/L (136-145); UREA NITROGEN 15 mg/dL (7-18); eGFR NON AFRICAN AMERICAN 80 mL/min (90-120)
[2018-09-06 03:31] LABS: CALCIUM 4.2 mg/dL (8.5-10.1)
[2018-09-06 03:42] LABS: AMYLASE - SERUM 49 U/L (25-115); LIPASE 161 U/L (73-393)
[2018-09-06 03:43] VITALS: BP 147/86
== END 2018-09-06 03:45 | disposition left against medical advice (07) ==
LOC: D.ER 02:09
PROVIDERS: Family Medicine
DX: K29.20 Alcoholic gastritis without bleeding (principal); F10.10 Alcohol abuse, uncomplicated

== ENCOUNTER 2018-09-09 17:28 | Inpatient (IN) | payer MEDICARE ==
[~2018-09-09] VITALS: Ht 180.3 cm; Wt 65.9 kg
--- NOTE | ~2018-09-09 | EC ---
PATIENT:TERA GREEN DATE OF SERVICE: 09/09/18 SEX: M MEDICAL RECORD: [id number] DATE OF : [birth year] LOCATION:D.M2 D.212 AGE OF PATIENT: 63 ADMISSION DATE: 09/09/18 REFERRING PHYSICIAN: INTERPRETING PHYSICIAN: ALEJANDRINA GOMEZ MD ECHOCARDIOGRAM REPORT ECHO CHARGES 4 ECHO COMPLETE Date: 09/11/18 CLINICAL DIAGNOSIS: CHF ECHOCARDIOGRAPHIC MEASUREMENTS (adult normal given) AC root (d.<3.7cm) 31 cm LV Septum d (<1.2 cm> 0.7 cm Valve Excursion 1.1 cm LV Septum (systole) 0.9 cm Left Atria (s.<4.0cm> 2.9 cm LVPW d(<1.2cm) 1.4 cm RV (d.<2.3cm) 3.2 cm LVPW (sytole) 1.7 cm LV diastole(<5.6CM) 5.8 cm MV E-F(>70mm/sec) cm LV systole 4.8 cm LVOT Diameter 1.8 cm MV exc.(>10mm) cm Est.ejection fraction (50-75%) % DOPPLER: LVIT cm/sec A 57 cm/sec E 108 cm/sec LA cm/sec RVSP 46.2 mmHg LVOT 82 cm/sec AOP1/2T m/s Asc. Ao 115 cm/sec RVOT 43 cm/sec RA cm/sec PA 60 cm/sec AV Gradient Peak 5.3 mmHg AV Mean 3.3 mmHg AV Area 1.8 cm MV Gradient Peak 6.9 mmHg MV Mean 3.3 mmHg MV Area cm COMMENTS: Honing Machine Operator Tool: Bello ANDERSENJACQUI ESTEFANÍA Carton Stapler: 3 Dr. Philip TAPE# PACS Pericardial Effusion N DATE OF SERVICE: Adequate 2-D, color-flow and spectral Doppler, and M-mode. No LVH. LV internal dimensions are normal. LV is mildly globally hypo. Aortic valve sclerosis without stenosis by Doppler interrogation. Left atrium is normal. Mitral valve shows no prolapse. Severe MR. Right-sided chambers are normal. Moderate TR. TRANSINT:[id number] Voice Confirmation ID: [id number] DOCUMENT ID: [id number] ECHOCARDIOGRAM REPORT [id number] TERA GREEN ALEJANDRINA GOMEZ MD CC: [id number] DICTATION DATE: 09/12/18 1316 FORMULATION CHEMIST: 04/09/19 1435 ADM IN [facility] [address] [id number]
[~2018-09-09 17:28] MED LIST changes: +LEVOXYL50 MCG PO
[2018-09-09 18:18] LABS: BASOPHILS 0.3 % (0-2); EOSINOPHILS 0.6 % (0-7); HEMATOCRIT 36.8 % (42.0-54.0); HEMOGLOBIN 11.8 g/dL (13.5-17.5); IMMATURE GRANULOCYTES 0.6 % (0-5); LYMPHOCYTES 8.2 % (15-50); MCH 31.3 pg (26.0-34.0); MCHC 32.1 g/dL (31.0-37.0); MCV 97.6 fL (80.0-100.0); MEAN PLATELET VOLUME 11.3 fL (7.4-10.4); MONOCYTES 6.1 % (2-11); NEUTROPHILS 84.2 % (40-80); PLATELET COUNT 164 10x3/uL (130-400); RBC 3.77 10x6/uL (4.20-6.10); RDW 19.5 % (11.5-14.5); WBC 10.9 10x3/uL (4.8-10.8)
[2018-09-09 18:35] LABS: ALBUMIN 2.8 g/dL (3.4-5.0); ANION GAP 20.4 mmol/L (8-16); BILIRUBIN - TOTAL 1.56 mg/dL (0.2-1.3); CARBON DIOXIDE 23.7 mmol/L (21.0-32.0); CREATININE - SERUM 1.2 mg/dL (0.6-1.3); POTASSIUM - SERUM 3.1 mmol/L (3.5-5.1); PROTEIN - SERUM 7.4 g/dL (6.4-8.2)
[2018-09-09 18:40] LABS: CALCIUM 4.2 mg/dL (8.5-10.1)
[2018-09-09 18:41] VITALS: BP 154/99
[2018-09-09 19:00] VITALS: BP 154/90
[2018-09-09 19:11] LABS: TROPONIN-I 0.174 ng/mL (0.000-0.060)
--- NOTE | 2018-09-09 20:26 | NUR ---
BANANA BAG MED ORDER VERIFIED WITH EDP YESENIA, ONLY INFUSE 1 GRAM MAGNESIUM IN WITH BANANA BAG OPPOSED TO ORDERED 2 GRAMS.
--- NOTE | 2018-09-09 20:45 | NUR ---
PT LINENS CHANGED AND NEW BRIEF PLACED ON PT. PT ALERT, ORIENTED.
--- NOTE | 2018-09-09 21:15 | NUR ---
MAGNESIUM INFUSION COMPLETE PRIOR TO TRANSPORT TO INPATIENT ROOM. BANANA BAG INFUSION STARTED.
[2018-09-10] VITALS (7 sets, daily range): BP systolic 103–156; BP diastolic 43–87; BMI 19.5
--- NOTE | 2018-09-10 02:39 | NUR ---
3.1 SERUM POTASSIUM TREATED ORDERED ACCORDING TO ELECTROLYTE PROTOCOL.
[2018-09-10 03:08] LABS: APPEARANCE CLEAR (CLEAR); BILIRUBIN NEGATIVE (NEGATIVE); COLOR YELLOW (YELLOW); GLUCOSE NEGATIVE (NEGATIVE); KETONE NEGATIVE (NEGATIVE); NITRITE NEGATIVE (NEGATIVE); PROTEIN NEGATIVE (NEGATIVE); SPECIFIC GRAVITY 1.005 (1.005-1.020); UROBILINOGEN NORMAL (NORMAL)
--- NOTE | 2018-09-10 03:57 | NUR ---
ADMISSION ASSESSMENT COMPLETED. PT RESTING WITH NO DISTRESS.
[2018-09-10 06:19] LABS: BASOPHILS 0.2 % (0-2); EOSINOPHILS 0.6 % (0-7); HEMATOCRIT 38.4 % (42.0-54.0); HEMOGLOBIN 12.5 g/dL (13.5-17.5); IMMATURE GRANULOCYTES 0.5 % (0-5); LYMPHOCYTES 6.7 % (15-50); MCH 31.2 pg (26.0-34.0); MCHC 32.6 g/dL (31.0-37.0); MCV 95.8 fL (80.0-100.0); MEAN PLATELET VOLUME 10.5 fL (7.4-10.4); MONOCYTES 5.6 % (2-11); NEUTROPHILS 86.4 % (40-80); RBC 4.01 10x6/uL (4.20-6.10); RDW 19.2 % (11.5-14.5)
[2018-09-10 06:33] LABS: PLATELET COUNT 208 10x3/uL (130-400)
--- NOTE | 2018-09-10 07:20 | NUR ---
ASSESSMENT DONE. DENIES NEEDS.
[2018-09-10 11:46] LABS: ALBUMIN 2.6 g/dL (3.4-5.0); ANION GAP 16.4 mmol/L (8-16); BILIRUBIN - TOTAL 1.48 mg/dL (0.2-1.3); CARBON DIOXIDE 26.1 mmol/L (21.0-32.0); CREATININE - SERUM 1.3 mg/dL (0.6-1.3); POTASSIUM - SERUM 3.5 mmol/L (3.5-5.1)
[2018-09-10 11:55] LABS: CALCIUM 4.2 mg/dL (8.5-10.1)
--- NOTE | 2018-09-10 14:42 | NUR ---
I have reviewed this patient and I concur with the Shift Assessment completed by the Licensed Practical Nurse today this shift.
[2018-09-10 16:20] LABS: INR 1.43 (0.85-1.17); PROTIME 16.9 SECONDS (11.6-15.0)
--- NOTE | 2018-09-10 16:43 | NUR ---
WITHOUT CHANGES OR DISTRESS NOTED AT THIS TIME. DENIES NEEDS.
[2018-09-10 17:08] LABS: CKMB 2.3 U/L (0.0-3.6); CREATINE KINASE 406 UL (21-232)
[2018-09-10 17:11] LABS: TROPONIN-I 0.154 ng/mL (0.000-0.060)
--- NOTE | 2018-09-10 19:21 | NUR ---
RECEIVED REPORT, WILL ASSUME CARE OF PT, SLEEPING, NO DISTRESS NOTICED AT THIS TIME, BED IS LOW, SRX2, CALL LIGHT IN REACH, WILL CONTINUE PLAN OF CARE
[2018-09-10 22:57] LABS: CREATINE KINASE 336 UL (21-232)
[2018-09-10 22:59] LABS: CKMB 1.5 U/L (0.0-3.6)
[2018-09-10 23:00] LABS: TROPONIN-I 0.163 ng/mL (0.000-0.060)
[2018-09-11 00:54] VITALS: BP 116/69
[2018-09-11 05:41] VITALS: BP 124/70
[2018-09-11 05:47] LABS: BASOPHILS 0.2 % (0-2); EOSINOPHILS 0.8 % (0-7); HEMATOCRIT 34.1 % (42.0-54.0); IMMATURE GRANULOCYTES 0.3 % (0-5); MCH 30.7 pg (26.0-34.0); MCHC 32.3 g/dL (31.0-37.0); MCV 95.3 fL (80.0-100.0); NEUTROPHILS 86.7 % (40-80); PLATELET COUNT 217 10x3/uL (130-400); RBC 3.58 10x6/uL (4.20-6.10); WBC 11.1 10x3/uL (4.8-10.8)
[2018-09-11 06:20] LABS: ALBUMIN 2.2 g/dL (3.4-5.0); ALKALINE PHOSPHATASE 193 U/L (46-116); ALT (SGPT) 66 U/L (10-68); BILIRUBIN - TOTAL 1.18 mg/dL (0.2-1.3); CALC OSMOLALITY 285 mosm/kg (275-300); CARBON DIOXIDE 26.7 mmol/L (21.0-32.0); CHLORIDE - SERUM 104 mmol/L (98-107); CKMB 2.1 U/L (0.0-3.6); CREATINE KINASE 326 UL (21-232); CREATININE - SERUM 1.2 mg/dL (0.6-1.3); GLUCOSE 127 mg/dL (74-106); POTASSIUM - SERUM 3.7 mmol/L (3.5-5.1); PROTEIN - SERUM 6.2 g/dL (6.4-8.2); SODIUM 141 mmol/L (136-145); UREA NITROGEN 21 mg/dL (7-18); eGFR NON AFRICAN AMERICAN 64 mL/min (90-120)
[2018-09-11 06:32] LABS: MAGNESIUM - SERUM 1.5 mg/dL (1.8-2.4)
[2018-09-11 06:33] LABS: CALCIUM < 5.0 mg/dL (8.5-10.1)
[2018-09-11 06:47] LABS: TROPONIN-I 0.135 ng/mL (0.000-0.060)
[2018-09-11 08:18] VITALS: BP 120/71
--- NOTE | 2018-09-11 09:40 | NUR ---
ASSEMENT DONE. DENIES NEEDS
--- NOTE | 2018-09-11 12:59 | NUR ---
I have reviewed this patient and I concur with the Shift Assessment completed by the Licensed Practical Nurse today this shift.
[2018-09-11 13:08] VITALS: BP 123/75
[2018-09-11 13:24] VITALS: BMI 19.5
[2018-09-11 14:29] VITALS: Ht 180.3 cm; Wt 65.9 kg
--- NOTE | 2018-09-11 15:28 | NUR ---
OT NOTE: PT COMPLETED SIMPLE GROOMING TASKS UPRIGHT IN BED WITH MIN A. PT COMPLETED BED MOB WITH MIN A. THANK YOU, DAVINA REN
--- NOTE | 2018-09-11 19:30 | NUR ---
RECEIVED REPORT, WILL ASSUME CARE OF PT, PT IS SLEEEPING, BED IS LOW, SRX2, CALL LIGHT IN REACH, WILL CONTINUE PLAN OF CARE
--- NOTE | 2018-09-11 21:20 | NUR ---
COMPLAINS OF BACK PAIN, GAVE MORPHINE ORDER
[2018-09-11 21:33] VITALS: BP 122/74
[2018-09-12 01:15] VITALS: BP 125/76
[2018-09-12 05:26] LABS: BASOPHILS 0.2 % (0-2); EOSINOPHILS 1.2 % (0-7); HEMATOCRIT 31.9 % (42.0-54.0); HEMOGLOBIN 10.3 g/dL (13.5-17.5); IMMATURE GRANULOCYTES 0.2 % (0-5); LYMPHOCYTES 6.7 % (15-50); MCHC 32.3 g/dL (31.0-37.0); MCV 96.1 fL (80.0-100.0); MONOCYTES 5.6 % (2-11); NEUTROPHILS 86.1 % (40-80); PLATELET COUNT 198 10x3/uL (130-400); RBC 3.32 10x6/uL (4.20-6.10); RDW 18.8 % (11.5-14.5); WBC 10.1 10x3/uL (4.8-10.8)
--- NOTE | 2018-09-12 05:29 | NUR ---
I have reviewed this patient and I concur with the Shift Assessment completed by the Licensed Practical Nurse today this shift.
[2018-09-12 06:19] VITALS: BP 135/75
[2018-09-12 06:26] LABS: ALBUMIN 2.2 g/dL (3.4-5.0); ALKALINE PHOSPHATASE 169 U/L (46-116); ALT (SGPT) 57 U/L (10-68); BILIRUBIN - TOTAL 0.93 mg/dL (0.2-1.3); GLUCOSE 108 mg/dL (74-106); MAGNESIUM - SERUM 1.8 mg/dL (1.8-2.4); POTASSIUM - SERUM 3.8 mmol/L (3.5-5.1); UREA NITROGEN 17 mg/dL (7-18); eGFR NON AFRICAN AMERICAN 80 mL/min (90-120)
[2018-09-12 06:57] LABS: CALC OSMOLALITY 278 mosm/kg (275-300); CHLORIDE - SERUM 103 mmol/L (98-107); SODIUM 138 mmol/L (136-145)
[2018-09-12 06:58] LABS: CALCIUM < 5.0 mg/dL (8.5-10.1)
--- NOTE | 2018-09-12 07:29 | NUR ---
RESUMING PT CARE, PT IS LAYING IN BED ALERT AND ORIENTED, RESPIRATIONS EVEN AND UNLABORED. BED IS IN LOWEST POSITION WITH RAILS UP X2. CALL LIGHT IN REACH, WILL CONTINUE TO MONITOR AND FOLLOW PLAN OF CARE.
[2018-09-12 08:11] VITALS: BP 120/74
--- NOTE | 2018-09-12 08:32 | NUR ---
RESUMING PT CARE, PT SITTING UP IN BED EATING BREAKFAST, ALERT AND ORIENTED X3, BED IS IN LOWEST POSITION WITH RAILS UP X2. CALL LIGHT IN REACH, WILL CONTINUE TO MONITOR AND FOLLOW PLAN OF CARE.
--- NOTE | 2018-09-12 08:41 | NUR ---
PT C/O INCREASED WEAKNESS AND REQUEST CASE MANAGEMENT TO FIND PLACEMENT FOR REHAB. PT STATES "I CANT EVEN STAND UP ANYMORE". CASE MANAGEMENT NOTIFIED.
--- NOTE | 2018-09-12 09:36 | NUR ---
I have reviewed this patient and I concur with the Shift Assessment completed by the Licensed Practical Nurse today this shift.
--- NOTE | 2018-09-12 12:18 | MORECARE ---
CASE MANAGEMENT DISCHARGE SUMMARY PATIENT: TERA GREEN UNIT: [id number] ADM DATE: 09/09/18 AGE: 63 : 51 SEX: M ROOM/BED: D.2126 AUTHOR: KAJAL CROSS PHYSICIAN: REFERRING PHYSICIAN: DEXTER AGUILERA MD DATE OF SERVICE: 09/12/18 Discharge Plan Patient Name: TERA GREEN [facility] [facility] 1955 Planned Disposition: Half-Way Facility Anticipated Discharge Date: 09/12/18 Discharge Date: Expected LOS: 3 Initial Reviewer: [email or web address] Initial Review Date: 09/12/2018 Generated: 09/12/18 1:18 pm Patient Name: TERA GREEN Page 08605 at 1218 All edits/amendments must be made on the electronic document DICTATION DATE: 09/12/18 1217 ROUGH AND TRUEING MACHINE OPERATOR: CELESTINA 09/12/18 1217 RPT#: [id number] DC DATE: STATUS: ADM IN [facility] [address] [place] [address] END OF REPORT
--- NOTE | 2018-09-12 12:27 | MORECARE ---
CASE MANAGEMENT DISCHARGE SUMMARY PATIENT: TERA GREEN UNIT: [id number] ADM DATE: 09/09/18 AGE: 63 : 51 SEX: M ROOM/BED: D.2126 AUTHOR: KAJAL CROSS PHYSICIAN: REFERRING PHYSICIAN: DEXTER AGUILERA MD DATE OF SERVICE: 09/12/18 Discharge Plan Patient Name: TERA GREEN Facility: [facility]:[place] : 1955 Planned Disposition: Alf Facility Anticipated Discharge Date: 09/12/18 Discharge Date: Expected LOS: 3 Initial Reviewer: [email or web address] Initial Review Date: 09/12/2018 Generated: 09/12/18 1:26 pm DCPIA - Discharge Planning Initial Assessment Updated by [email or web address]: Floyd Mccall on 09/12/18 12:18 pm * Is the patient Alert and Oriented? Yes * How many steps to enter\exit or inside your home? ELEVATOR * PCP NONE * Pharmacy [facility] [address] * Preadmission Environment Home Alone * ADLs Independent * Equipment Oxygen * Other Equipment HOME OXYGEN ONLY- UNKNOWN PROVIDER * List name and contact numbers for known caregivers / representatives who currently or will assist patient after discharge: LUISA GUEVARA, SISTER, * Verbal permission to speak to the caregivers and representatives has been obtained from the patient. Yes * Community resources currently utilized Other * Please name any agencies selected above. HOUSEKEEPING AT APARTMENT NEEDED. * Additional services required to return to the preadmission environment? Yes * Can the patient safely return to the preadmission environment? Yes * Has this patient been hospitalized within the prior 30 days at any hospital? Yes Last DP export: 09/12/18 11:18 am Patient Name: TERA GREEN Page 43774 at 1227 All edits/amendments must be made on the electronic document DICTATION DATE: 09/12/18 1226 EXECUTIVE VICE PRESIDENT OF SALES: CELESTINA 09/12/18 1226 RPT#: [id number] DC DATE: STATUS: ADM IN [facility] [address] [place] [address] END OF REPORT
--- NOTE | 2018-09-12 12:42 | MORECARE ---
CASE MANAGEMENT DISCHARGE SUMMARY PATIENT: TERA GREEN UNIT: [id number] ADM DATE: 09/09/18 AGE: 63 : 51 SEX: M ROOM/BED: D.2126 AUTHOR: KAJAL CROSS PHYSICIAN: REFERRING PHYSICIAN: DEXTER AGUILERA MD DATE OF SERVICE: 09/12/18 Discharge Plan Patient Name: TERA GREEN Facility: [facility]:[place] : 1955 Planned Disposition: Fpc Facility Anticipated Discharge Date: 09/12/18 Discharge Date: Expected LOS: 3 Initial Reviewer: [email or web address] Initial Review Date: 09/12/2018 Generated: 09/12/18 1:42 pm DCPIA - Discharge Planning Initial Assessment Updated by [email or web address]: Floyd Mccall on 09/12/18 12:18 pm * Is the patient Alert and Oriented? Yes * How many steps to enter\exit or inside your home? ELEVATOR * PCP NONE * Pharmacy [facility] [address] * Preadmission Environment Home Alone * ADLs Independent * Equipment Oxygen * Other Equipment HOME OXYGEN ONLY- UNKNOWN PROVIDER * List name and contact numbers for known caregivers / representatives who currently or will assist patient after discharge: LUISA GUEVARA, SISTER, * Verbal permission to speak to the caregivers and representatives has been obtained from the patient. Yes * Community resources currently utilized Other * Please name any agencies selected above. HOUSEKEEPING AT APARTMENT NEEDED. * Additional services required to return to the preadmission environment? Yes * Can the patient safely return to the preadmission environment? Yes * Has this patient been hospitalized within the prior 30 days at any hospital? Yes External Providers External Provider: [facility] Next Contact Date: 09/13/2018 Service Request Date: Service Type: Resolution: Reviewer: Comments: External Provider: [facility] Next Contact Date: 09/13/2018 Service Request Date: Service Type: Resolution: Reviewer: Comments: Last DP export: 09/12/18 11:27 am Patient Name: TERA GREEN Page 63972 at 1242 All edits/amendments must be made on the electronic document DICTATION DATE: 09/12/181241 WOOL DYER: CELESTINA 09/12/18 1242 RPT#: [id number] DC DATE: STATUS: ADM IN [facility] [address] [place] [address] END OF REPORT
--- NOTE | 2018-09-12 12:50 | MORECARE ---
CASE MANAGEMENT DISCHARGE SUMMARY PATIENT: TERA GREEN UNIT: [id number] ADM DATE: 09/09/18 AGE: 63 : 51 SEX: M ROOM/BED: D.2126 AUTHOR: TAYDOC PHYSICIAN: REFERRING PHYSICIAN: DEXTER AGUILERA MD DATE OF SERVICE: 09/12/18 Discharge Plan Patient Name: TERA GREEN Facility: [facility]:[place] : 1955 Planned Disposition: Halfway Facility Anticipated Discharge Date: 09/12/18 Discharge Date: Expected LOS: 3 Initial Reviewer: [email or web address] Initial Review Date: 09/12/2018 Generated: 09/12/18 1:50 pm DCPIA - Discharge Planning Initial Assessment Updated by [email or web address]: Floyd Mccall on 09/12/18 12:18 pm * Is the patient Alert and Oriented? Yes * How many steps to enter\exit or inside your home? ELEVATOR * PCP NONE * Pharmacy [facility] * Preadmission Environment Home Alone * ADLs Independent * Equipment Oxygen * Other Equipment HOME OXYGEN ONLY- UNKNOWN PROVIDER * List name and contact numbers for known caregivers / representatives who currently or will assist patient after discharge: LUISA GUEVARA, SISTER, * Verbal permission to speak to the caregivers and representatives has been obtained from the patient. Yes * Community resources currently utilized Other * Please name any agencies selected above. HOUSEKEEPING AT APARTMENT NEEDED. * Additional services required to return to the preadmission environment? Yes * Can the patient safely return to the preadmission environment? Yes * Has this patient been hospitalized within the prior 30 days at any hospital? Yes External Providers [facility] Next Contact Date: 09/13/2018 Service Request Date: Service Type: Resolution: Reviewer: Comments: [facility] Next Contact Date: 09/13/2018 Service Request Date: Service Type: Resolution: Reviewer: Comments: External Provider: [facility] Next Contact Date: 09/13/2018 Service Request Date: Service Type: Resolution: Reviewer: Comments: External Provider: [facility] Next Contact Date: 09/13/2018 Service Request Date: Service Type: Resolution: Reviewer: Comments: Last DP export: 09/12/18 11:42 am Patient Name: TERA GREEN Page 42305 at 1250 All edits/amendments must be made on the electronic document DICTATION DATE: 09/12/18 1250 VICE PRESIDENT MEDIA RELATIONS: CELESTINA 09/12/18 1250 RPT#: [id number] DC DATE: STATUS: ADM IN [facility] [address] [place] [address] END OF REPORT
--- NOTE | 2018-09-12 12:58 | MORECARE ---
CASE MANAGEMENT DISCHARGE SUMMARY PATIENT: TERA RGEEN UNIT: [id number] ADM DATE: 09/09/18 AGE: 63 : 51 SEX: M ROOM/BED: D.2126 AUTHOR: KAJAL CROSS PHYSICIAN: REFERRING PHYSICIAN: DEXTER AGUILERA MD DATE OF SERVICE: 09/12/18 Discharge Plan Patient Name: TERA GREEN Facility: [facility]:[place] : 1955 Planned Disposition: Custodial Facility Anticipated Discharge Date: 09/12/18 Discharge Date: Expected LOS: 3 Initial Reviewer: [email or web address] Initial Review Date: 09/12/2018 Generated: 09/12/18 1:58 pm DCPIA - Discharge Planning Initial Assessment Updated by [email or web address]: Floyd Mccall on 09/12/18 12:18 pm * Is the patient Alert and Oriented? Yes * How many steps to enter\exit or inside your home? ELEVATOR * PCP NONE * Pharmacy [facility] [address] * Preadmission Environment Home Alone * ADLs Independent * Equipment Oxygen * Other Equipment HOME OXYGEN ONLY- UNKNOWN PROVIDER * List name and contact numbers for known caregivers / representatives who currently or will assist patient after discharge: LUISA GUEVARA, SISTER, * Verbal permission to speak to the caregivers and representatives has been obtained from the patient. Yes * Community resources currently utilized Other * Please name any agencies selected above. HOUSEKEEPING AT APARTMENT NEEDED. * Additional services required to return to the preadmission environment? Yes * Can the patient safely return to the preadmission environment? Yes * Has this patient been hospitalized within the prior 30 days at any hospital? Yes External Providers External Provider: [facility] Next Contact Date: 09/13/2018 Service Request Date: Service Type: Resolution: Reviewer: Comments: Last DP export: 09/12/18 11:50 am Patient Name: TERA GREEN Page 11462 at 1258 All edits/amendments must be made on the electronic document DICTATION DATE: 09/12/18 1258 RETAIL ADVERTISING ACCOUNT EXECUTIVE: CELESTINA 09/12/18 1258 RPT#: [id number] DC DATE: STATUS: ADM IN [facility] [address] [facility] [place] [address] END OF REPORT
--- NOTE | 2018-09-12 13:07 | MORECARE ---
CASE MANAGEMENT DISCHARGE SUMMARY PATIENT: TERA GREEN UNIT: [id number] ADM DATE: 09/09/18 AGE: 63 : 53 SEX: M ROOM/BED: D.0876 AUTHOR: TAY,DOC PHYSICIAN: REFERRING PHYSICIAN: DEXTER AGUILERA MD DATE OF SERVICE: 09/12/18 Discharge Plan Patient Name: TERA GREEN Facility: [facility]:[place] : 1955 Planned Disposition: Group Home Facility Anticipated Discharge Date: 09/12/18 Discharge Date: Expected LOS: 3 Initial Reviewer: [id number] Initial Review Date: 09/12/2018 Generated: 09/12/18 2:07 pm Comments DCP- Discharge Planning Updated by [email or web address]: Floyd Mccall on 09/12/18 12:[address] Patient Name: TERA GREEN Admission Status: ER Accout number: [id number] Admission Date: 09-09-2018 : 1955 Admission Diagnosis:DYSPNEA, UNSPECIFIED Attending: WILLY, Current LOS: 3 Anticipated DC Date: 09-12-2018 Planned Disposition: Group Home Facility Primary Insurance: MEDICARE A & B PLANNED EXTERNAL PROVIDER: FIRST ACCEPTING ALF FACILITY Discharge Planning Comments: CM MET WITH PT IN ROOM TO DISCUSS DISCHARGE PLANNING AND NEEDS. PT REPORTS LIVING AT HOME INDEPENDENTLY AND ALONE. PT HAS HOME OXYGEN FROM UNKNOWN PROVIDER. PT USES A CANE TO WALK. PT HAS HOUSEKEEPING PROVIDED BY HIS DISABILITY ACCESSIBLE APARTMENT BUT HAS NO OUTSIDE SERVICES ASSISTING IN THE HOME. CM DISCUSSED AVAILABILITY OF HOME HEALTH, REHAB SERVICES AND MEDICAL EQUIPMENT. PT REPORTS HE IS NOT ABLE TO TAKE CARE OF HIMSELF AND NEEDS TO GO TO A RETIREMENT FOR HEAD GOLF PROFESSIONAL CARE. CM DISCUSSED PT'S ALCOHOLISM. PT DENIES NEED FOR TREATMENT AND REPORTS HE ONLY WAS DRINKING THREE SHOTS OF VODKA PER DAY, LESS THAN IS IN A [place]. PT STATES HE NEEDS HEAD GOLF PROFESSIONAL CARE AND KNOWS HE CANNOT RETURN HOME AGAIN AND ASKED CM TO GET HIM INTO A [place] RETIREMENT. LISTING PROVIDED, PT SIGNED CONSENT FOR ANY RETIREMENT, ONE IN [place] IF POSSIBLE. PT REPORTS IT TO BE OK TO COMMUNICATE WITH HIS SISTER, LUISA GUEVARA, IF NEEDED. PT STATES HE DOES NOT WANT TO GO TO [place] TO BE CLOSE TO HER. IMPORTANT MESSAGE FROM MEDICARE PROVIDED AND EXPLAINED. CM FAXED REFERRALS FOR SKILLED REHAB AND HEAD GOLF PROFESSIONAL CARE TO [facility], [facility], [facility], [facility] AND [facility]. CM WAITING ADMISSION DETERMINATIONS FROM EVERY NURSING FACILITY IN [place]. Manufacturing Engineering Professor: Floyd Mccall DCPIA - Discharge Planning Initial Assessment Updated by [id number]: Floyd Mccall on 09/12/18 12:18 pm * Is the patient Alert and Oriented? Yes * How many steps to enter\exit or inside your home? ELEVATOR * PCP NONE * Pharmacy [facility] * Preadmission Environment Home Alone * ADLs Independent * Equipment Oxygen * Other Equipment HOME OXYGEN ONLY- UNKNOWN PROVIDER * List name and contact numbers for known caregivers / representatives who currently or will assist patient after discharge: LUISA GUEVARA, SISTER, * Verbal permission to speak to the caregivers and representatives has been obtained from the patient. Yes * Community resources currently utilized Other * Please name any agencies selected above. HOUSEKEEPING AT APARTMENT NEEDED. * Additional services required to return to the preadmission environment? Yes * Can the patient safely return to the preadmission environment? Yes * Has this patient been hospitalized within the prior 30 days at any hospital? Yes Coverage Notice Reviewer: [id number] - Floyd Mccall Notice Issued Date-Time: 09/12/2018 9:10 Notice Type: IM Discharge Notice Notice Delivered To: Patient Relationship to Patient: Plush Brusher Name: Delivery Method: HAND - Hand Delivered Alecia Days: Prior Verbal Notification: Recipient Understood Notice: Yes Recipient Signature: Yes Med Rec Note Co-signed by Attending: Coverage Notice Comment: Last DP export: 09/12/18 11:58 am Patient Name: TERA GREEN Page 27798 at 1307 All edits/amendments must be made on the electronic document DICTATION DATE: 09/12/18 1306 CIGARETTE MACHINE OPERATOR: CELESTINA 09/12/18 1306 RPT#: [id number] DC DATE: STATUS: ADM IN [facility] [address] [place] [address] END OF REPORT
[2018-09-12 14:22] VITALS: BP 122/76
--- NOTE | 2018-09-12 15:09 | MORECARE ---
CASE MANAGEMENT DISCHARGE SUMMARY PATIENT: TERA GREEN UNIT: [id number] ADM DATE: 09/09/18 AGE: 63 : 53 SEX: M ROOM/BED: D.8326 AUTHOR: TAY,DOC PHYSICIAN: REFERRING PHYSICIAN: DEXTER AGUILERA MD DATE OF SERVICE: 09/12/18 Discharge Plan Patient Name: TERA GREEN Facility: [facility]:[place] : 1955 Planned Disposition: Care Home Facility Anticipated Discharge Date: 09/13/18 Discharge Date: Expected LOS: 4 Initial Reviewer: [id number] Initial Review Date: 09/12/2018 Generated: 09/12/18 4:08 pm Comments DCP- Discharge Planning Updated by [id number]: Floyd Morocho on 09/12/18 2:[address] Patient Name: TERA GREEN Admission Status: ER Accout number: [id number] Admission Date: 09-09-2018 : 1955 Admission Diagnosis:DYSPNEA, UNSPECIFIED Attending: WILLY, Current LOS: 3 Anticipated DC Date: 09-12-2018 Planned Disposition: Care Home Facility Primary Insurance: MEDICARE A & B PLANNED EXTERNAL PROVIDER: FIRST ACCEPTING NURSING HOME FACILITY Discharge Planning Comments: CM MET WITH PT IN ROOM TO DISCUSS DISCHARGE PLANNING AND NEEDS. PT REPORTS LIVING AT HOME INDEPENDENTLY AND ALONE. PT HAS HOME OXYGEN FROM UNKNOWN PROVIDER. PT USES A CANE TO WALK. PT HAS HOUSEKEEPING PROVIDED BY HIS DISABILITY ACCESSIBLE APARTMENT BUT HAS NO OUTSIDE SERVICES ASSISTING IN THE HOME. CM DISCUSSED AVAILABILITY OF HOME HEALTH, REHAB SERVICES AND MEDICAL EQUIPMENT. PT REPORTS HE IS NOT ABLE TO TAKE CARE OF HIMSELF AND NEEDS TO GO TO A MCC FOR FERRIS WHEEL OPERATOR CARE. CM DISCUSSED PT'S ALCOHOLISM. PT DENIES NEED FOR TREATMENT AND REPORTS HE ONLY WAS DRINKING THREE SHOTS OF VODKA PER DAY, LESS THAN IS IN A [place]. PT STATES HE NEEDS FERRIS WHEEL OPERATOR CARE AND KNOWS HE CANNOT RETURN HOME AGAIN AND ASKED CM TO GET HIM INTO A [place] MCC. LISTING PROVIDED, PT SIGNED CONSENT FOR ANY MCC, ONE IN [place] IF POSSIBLE. PT REPORTS IT TO BE OK TO COMMUNICATE WITH HIS SISTER, LUISA GUEVARA, IF NEEDED. PT STATES HE DOES NOT WANT TO GO TO [place] TO BE CLOSE TO HER. IMPORTANT MESSAGE FROM MEDICARE PROVIDED AND EXPLAINED. CM FAXED REFERRALS FOR SKILLED REHAB AND FERRIS WHEEL OPERATOR CARE TO [facility], [facility], [facility], [facility], [facility], [facility]. CM WAITING ADMISSION DETERMINATIONS FROM EVERY NURSING FACILITY IN [place]. News Operations Manager: Floyd Morocho Appended by Floyd Morocho on 09/12/2018 15:08 CDT: PLANNED EXTERNAL PROVIDER: [facility], MEDICARE REHAB BED CM RECEIVED CALL FROM [facility], SPOKE TO [facility]AMP WHO INFORMED CM THAT THEY WILL ACCEPT PT IF HE WILL AGREE TO NO SMOKING OF CIGARETTES AT FACILITY. CM MET WITH PT AND DISCUSSED PLACEMENT FOR REHAB AND FERRIS WHEEL OPERATOR CARE AT NON SMOKING FACILITY. PT AGREES. CM NOTIFIED CHAMP AT [facility], THEY WILL ACCEPT PT AT DISCHARGE FOR SKILLED REHAB. FOR DISCHARGE, FAX DISCHARGE INFORMATION TO [facility] AT [phone]. CALL NURSE REPORT TO [facility] AT [phone]. [facility] TO PROVIDE VAN TRANSPORT. FLOYD MOROCHO, CASE MANAGEMENT DCPIA - Discharge Planning Initial Assessment Updated by [id number]: Floyd Morocho on 09/12/18 12:18 pm * Is the patient Alert and Oriented? Yes * How many steps to enter\exit or inside your home? ELEVATOR * PCP NONE * Pharmacy [facility] * Preadmission Environment Home Alone * ADLs Independent * Equipment Oxygen * Other Equipment HOME OXYGEN ONLY- UNKNOWN PROVIDER * List name and contact numbers for known caregivers / representatives who currently or will assist patient after discharge: LUISA GUEVARA, SISTER, * Verbal permission to speak to the caregivers and representatives has been obtained from the patient. Yes * Community resources currently utilized Other * Please name any agencies selected above. HOUSEKEEPING AT APARTMENT NEEDED. * Additional services required to return to the preadmission environment? Yes * Can the patient safely return to the preadmission environment? Yes * Has this patient been hospitalized within the prior 30 days at any hospital? Yes Coverage Notice Reviewer: [id number] - Floyd Morocho Notice Issued Date-Time: 09/12/2018 9:10 Notice Type: IM Discharge Notice Notice Delivered To: Patient Relationship to Patient: Television Producer Name: Delivery Method: HAND - Hand Delivered Alecia Days: Prior Verbal Notification: Recipient Understood Notice: Yes Recipient Signature: Yes Med Rec Note Co-signed by Attending: Coverage Notice Comment: Reviewer: [id number] - Floyd Morocho Notice Issued Date-Time: 09/12/2018 9:10 Notice Type: Patient Choice Letter Notice Delivered To: Patient Relationship to Patient: Television Producer Name: Delivery Method: HAND - Hand Delivered Alecia Days: Prior Verbal Notification: Recipient Understood Notice: Yes Recipient Signature: Yes Med Rec Note Co-signed by Attending: Coverage Notice Comment: ANY MCC, IN [place] IF POSSIBLE Last DP export: 09/12/18 12:07 pm Patient Name: TERA GREEN Page [phone] at 1509 All edits/amendments must be made on the electronic document DICTATION DATE: 09/12/18 1508 BAROMETERS CALIBRATOR: CELESTINA 09/12/18 1508 RPT#: [id number] PR DATE: STATUS: ADM IN [facility] [address] [place] [address] END OF REPORT
--- NOTE | 2018-09-12 15:36 | NUR ---
OT NOTE: BED MOB WITH MIN ASSIST; TRANSFERS WITH MIN ASSIST; ABLE TO FEED SELF WITH SET UP HOWEVER, REMAINS VERY LETHARGIC AGAIN TODAY. HOLLIE CASTELLON, OTR/L
--- NOTE | 2018-09-12 16:48 | NUR ---
OT NOTE: PT COMPLETED BED MOB AND SUPINE TO SIT WITH MIN/MOD A. PT COMPLETED EOB SITTING WITH MIN A. PT COMPLETED GROOMING TASKS AT EOB WITH MIN A. PT REQUIRED VERBAL CUES FOR TASK SEQUENCING. THANK YOU, DAVINA REN
[2018-09-12 20:00] VITALS: BP 131/80
[2018-09-12 23:55] VITALS: BP 143/96
--- NOTE | 2018-09-12 23:59 | NUR ---
TOOK REPORT OM PT...REPORTED PUKLSE 50...100 PACED ON MONITOR. CHECKED PT PAPABLE WELL
--- NOTE | 2018-09-13 01:44 | NUR ---
PT YELLING OUT FOR A CIGG. CONTINUED TO TELL PT NO. MORPHINE GIVEN FOR RESTLESSNESS AND BACK PAIN. PT UPSET AND CONTINUES TO GET UP AND DOWN,. ALARM ON AND ACTIVE. WILL CPOC
--- NOTE | 2018-09-13 02:21 | NUR ---
PT STILL YELLING OUT. SAYING PLACEBO. SHE GAVE ME A PLACEBO. CUSSING AND ANGERY ABOUT NOT GETTING A CIGG. PT HAS AN ALARM ON AND ACTIVE. PT CONFUSED. IS NOT COMPLIANT. WILL CPOC
[2018-09-13 04:31] VITALS: BP 114/86
[2018-09-13 06:51] LABS: BASOPHILS 0.2 % (0-2); EOSINOPHILS 0.7 % (0-7); HEMATOCRIT 31.5 % (42.0-54.0); HEMOGLOBIN 10.4 g/dL (13.5-17.5); IMMATURE GRANULOCYTES 0.3 % (0-5); LYMPHOCYTES 6.3 % (15-50); MCH 31.6 pg (26.0-34.0); MCV 95.7 fL (80.0-100.0); MEAN PLATELET VOLUME 10.6 fL (7.4-10.4); MONOCYTES 6.1 % (2-11); NEUTROPHILS 86.4 % (40-80); PLATELET COUNT 189 10x3/uL (130-400); RBC 3.29 10x6/uL (4.20-6.10); RDW 18.8 % (11.5-14.5); WBC 9.8 10x3/uL (4.8-10.8)
[2018-09-13 07:22] LABS: ALBUMIN 2.2 g/dL (3.4-5.0); ALKALINE PHOSPHATASE 162 U/L (46-116); ALT (SGPT) 47 U/L (10-68); BILIRUBIN - TOTAL 1.06 mg/dL (0.2-1.3); CALC OSMOLALITY 273 mosm/kg (275-300); CARBON DIOXIDE 22.3 mmol/L (21.0-32.0); CHLORIDE - SERUM 102 mmol/L (98-107); CREATININE - SERUM 0.8 mg/dL (0.6-1.3); GLUCOSE 104 mg/dL (74-106); MAGNESIUM - SERUM 1.8 mg/dL (1.8-2.4); POTASSIUM - SERUM 3.5 mmol/L (3.5-5.1); PROTEIN - SERUM 6.1 g/dL (6.4-8.2); SODIUM 136 mmol/L (136-145); UREA NITROGEN 17 mg/dL (7-18); eGFR NON AFRICAN AMERICAN > 90 mL/min (90-120)
[2018-09-13 07:30] LABS: CALCIUM < 5.0 mg/dL (8.5-10.1)
--- NOTE | 2018-09-13 07:30 | NUR ---
REPORT RECEIVED. WILL CONTINUE WITH POC. PT CURRENTLY LYING SEMI FOWLERS. CALL LIGHT W/I REACH. PT IS RESTING AT THE MOMENT. RR EVEN AND UNLABORED ON RA. NS INFUSING @KVO VIA L.FOR PIV. NO S/S OF DISTRESS NOTED. PT DENIES ANY NEEDS AT THIS TIME. WILL CTM.
[2018-09-13] MEDS ORDERED: ROCALTROL0.25 MCG PO (08:58)
[2018-09-13 09:45] VITALS: BP 143/72
--- NOTE | 2018-09-13 11:58 | NUR ---
PT DISCHARGED TO [facility] VIA WHEELCHAIR [facility]. PIV REMOVED WITH CATHETER TIP FULLY INTACT. DISCHARGE PAPERWORK SIGNED BY NURSE AND WITNESSED BY NURSE R/T PT NOT BEING ABLE TO SIGN. ALL VALUABLES REMOVED FROM ROOM.
--- NOTE | 2018-09-13 12:43 | MORECARE ---
CASE MANAGEMENT DISCHARGE SUMMARY PATIENT: TERA GREEN UNIT: [id number] ADM DATE: 09/09/18 AGE: 63 : 51 SEX: M ROOM/BED: D.2126 AUTHOR: KAJAL CROSS PHYSICIAN: REFERRING PHYSICIAN: DEXTER AGUILERA MD DATE OF SERVICE: 09/13/18 Discharge Plan Patient Name: TERA GREEN Facility: [facility]:[place] : 1955 Planned Disposition: Half-Way Facility Anticipated Discharge Date: 09/13/18 Discharge Date: 09/13/2018 Expected LOS: 4 Initial Reviewer: [id number] Initial Review Date: 09/12/2018 Generated: 09/13/18 1:42 pm Comments DCP- Discharge Planning Updated by [id number]: Floyd Morocho on 09/13/18 11:[address] Patient Name: TERA GREEN Encounter No: [id number] : 1955 Primary Insurance: MEDICARE A & B Anticipated DC Date: 09-13-2018 Planned Disposition: Half-Way Facility External Planned Provider: [facility], MEDICARE REHAB BED DCP follow-up note: CM RECEIVED DISCHARGE ORDER, MET WITH PT IN ROOM WHO IS IN AGREEMENT WITH DISCHARGE TO [facility] TODAY. CM FAXED DISCHARGE INFORMATION TO [facility] AT [phone]. CM SPOKE TO KEITH AT [facility] WHO WILL ARRANGE TRANSPORT [employer] AT NOON TODAY. AMBULANCE DISPATCHER NURSE NOTFIED. CALL NURSE REPORT TO [facility] AT [phone]. [facility] TO PROVIDE VAN TRANSPORT. PEPPER [place] DCP- Discharge Planning Updated by [id number]: Floyd Morocho on 09/12/18 2:[address] Patient Name: TERA GREEN Admission Status: ER Accout number: [id number] Admission Date: 09-09-2018 : 1955 Admission Diagnosis:DYSPNEA, UNSPECIFIED Attending: WILLY, Current LOS: 3 Anticipated DC Date: 09-12-2018 Planned Disposition: Half-Way Facility Primary Insurance: MEDICARE A & B PLANNED EXTERNAL PROVIDER: FIRST ACCEPTING [facility] FACILITY Discharge Planning Comments: CM MET WITH PT IN ROOM TO DISCUSS DISCHARGE PLANNING AND NEEDS. PT REPORTS LIVING AT HOME INDEPENDENTLY AND ALONE. PT HAS HOME OXYGEN FROM UNKNOWN PROVIDER. PT USES A CANE TO WALK. PT HAS HOUSEKEEPING PROVIDED BY HIS DISABILITY ACCESSIBLE APARTMENT BUT HAS NO OUTSIDE SERVICES ASSISTING IN THE HOME. CM DISCUSSED AVAILABILITY OF HOME HEALTH, REHAB SERVICES AND MEDICAL EQUIPMENT. PT REPORTS HE IS NOT ABLE TO TAKE CARE OF HIMSELF AND NEEDS TO GO TO A MCC FOR HALFWAY CARE. CM DISCUSSED PT'S ALCOHOLISM. PT DENIES NEED FOR TREATMENT AND REPORTS HE ONLY WAS DRINKING THREE SHOTS OF VODKA PER DAY, LESS THAN IS IN A [place]. PT STATES HE NEEDS RODEO RIDER CARE AND KNOWS HE CANNOT RETURN HOME AGAIN AND ASKED CM TO GET HIM INTO A [place] M[facility]. LISTING PROVIDED, PT SIGNED CONSENT FOR ANY MCC, ONE IN [place] IF POSSIBLE. PT REPORTS IT TO BE OK TO COMMUNICATE WITH HIS SISTER, LUISA GUEVARA, IF NEEDED. PT STATES HE DOES NOT WANT TO GO TO [place] TO BE CLOSE TO HER. IMPORTANT MESSAGE FROM MEDICARE PROVIDED AND EXPLAINED. CM FAXED REFERRALS FOR SKILLED REHAB AND RODEO RIDER CARE TO [facility], [facility], [facility], [facility], [facility], [facility] AND [facility]. CM WAITING ADMISSION DETERMINATIONS FROM EVERY NURSING FACILITY IN [place]. Lithograph Press Operator: Floyd Morocho Appended by Floyd Morocho on 09/12/2018 15:08 CDT: PLANNED EXTERNAL PROVIDER: [facility] BED CM RECEIVED CALL FROM [facility], SPOKE TO [facility] WHO INFORMED CM THAT THEY WILL ACCEPT PT IF HE WILL AGREE TO NO SMOKING OF CIGARETTES AT FACILITY. CM MET WITH PT AND DISCUSSED PLACEMENT FOR REHAB AND HALFWAY CARE AT NON SMOKING FACILITY. PT AGREES. CM NOTIFIED CHAMP AT [facility], THEY WILL ACCEPT PT AT DISCHARGE FOR SKILLED REHAB. FOR DISCHARGE, FAX DISCHARGE INFORMATION TO [facility] AT [phone]. CALL NURSE REPORT TO [facility] AT [phone]. [facility] TO PROVIDE VAN TRANSPORT. FLOYD MOROCHO, CASE MANAGEMENT DCPIA - Discharge Planning Initial Assessment Updated by [id number]: Floyd Morocho on 09/12/18 12:18 pm * Is the patient Alert and Oriented? Yes * How many steps to enter\exit or inside your home? ELEVATOR * PCP NONE * Pharmacy [facility] * Preadmission Environment Home Alone * ADLs Independent * Equipment Oxygen * Other Equipment HOME OXYGEN ONLY- UNKNOWN PROVIDER * List name and contact numbers for known caregivers / representatives who currently or will assist patient after discharge: LUISA GUEVARA, , * Verbal permission to speak to the caregivers and representatives has been obtained from the patient. Yes * Community resources currently utilized Other * Please name any agencies selected above. HOUSEKEEPING AT APARTMENT NEEDED. * Additional services required to return to the preadmission environment? Yes * Can the patient safely return to the preadmission environment? Yes * Has this patient been hospitalized within the prior 30 days at any hospital? Yes Coverage Notice Reviewer: [email or web address] Morocho Notice Issued Date-Time: 09/12/2018 9:10 Notice Type: IM Discharge Notice Notice Delivered To: Patient Relationship to Patient: Cell Tester Name: Delivery Method: HAND - Hand Delivered Alecia Days: Prior Verbal Notification: Recipient Understood Notice: Yes Recipient Signature: Yes Med Rec Note Co-signed by Attending: Coverage Notice Comment: Reviewer: CARY Morocho Notice Issued Date-Time: 09/12/2018 9:10 Notice Type: Patient Choice Letter Notice Delivered To: Patient Relationship to Patient: Cell Tester Name: Delivery Method: HAND - Hand Delivered Alecia Days: Prior Verbal Notification: Recipient Understood Notice: Yes Recipient Signature: Yes Med Rec Note Co-signed by Attending: Coverage Notice Comment: ANY [facility], IN [place] IF POSSIBLE Last DP export: 09/12/18 2:09 pm Patient Name: TERA GREEN Page [phone] at 1243 All edits/amendments must be made on the electronic document DICTATION DATE: 09/13/18 1242 BALLISTICS TESTER: CELESTINA 09/13/18 1242 RPT#: [id number] DC DATE:09/13/18 STATUS: DIS IN [facility] [address] [place] [address] END OF REPORT
--- NOTE | 2018-09-13 14:18 | NUR ---
OT NOTE: PT VERY LETHARGIC IN AM. SLIGHTLY RESISTANT TO SITTING UP ON EOB, BUT FINALLY AGREED. ABLE TO PERFORM WITHOUT ASSIST. STATIC SITTING BALANCE IS GOOD. GROOMING TASKS WITH SET UP. PT REFUSED TO AMB IN ROOM, HOWEVER, WAS OBSERVED IN HALLWAY A SHORT TIME LATER. UNSTEADY GAIT. Lesli JAMES TR/L
== END 2018-09-13 11:59 | DRG 432 ==
LOC: D.ER 17:28 → D.M2 20:13 → D.EDHOLD 20:13 → D.M2 20:30
PROVIDERS: Family Medicine; ADMIT Family Medicine; ATTEND Family Medicine
DX: K70.31 Alcoholic cirrhosis of liver with ascites (principal); I50.31 Acute diastolic (congestive) heart failure; N17.9 Acute kidney failure, unspecified; F17.213 Nicotine dependence, cigarettes, with withdrawal; F10.239 Alcohol dependence with withdrawal, unspecified; D68.9 Coagulation defect, unspecified; I44.2 Atrioventricular block, complete; R04.2 Hemoptysis; E83.51 Hypocalcemia; J44.9 Chronic obstructive pulmonary disease, unspecified; D50.9 Iron deficiency anemia, unspecified; E83.42 Hypomagnesemia; E03.9 Hypothyroidism, unspecified; Z95.0 Presence of cardiac pacemaker

== ENCOUNTER 2018-11-12 14:39 | Inpatient (IN) | payer MEDICARE ==
[~2018-11-12] VITALS: Ht 180.3 cm; Wt 63.6 kg
[~2018-11-12 14:39] MED LIST changes: +ALBUTEROL2.5 MG/3 M UPD; +CARAFATE1 G/10 ML PO; +COREG 3.1253.125 MG PO; +GEODON20 MG PO; +LEXAPRO10 MG PO; +LIBRIUM5 MG PO; +LIPITOR80 MG PO; +LISINOPRIL5 MG PO; +PEPCID20 MG PO; +PROTONIX40 MG PO; +PULMICORT0.5 MG/21 UPD; +SYNTHROID75 MCG PO; +THERAGRAN M [BK1 TAB PO; +THIAMINE HCL50 MG PO; +VIBRAMYCIN 100100 MG PO; +VITAMIN B-12100 MCG PO; +Vitamin D PO
[2018-11-12 15:12] LABS: BASOPHILS 0.2 % (0-2); EOSINOPHILS 0.8 % (0-7); HEMATOCRIT 39.5 % (42.0-54.0); HEMOGLOBIN 13.2 g/dL (13.5-17.5); IMMATURE GRANULOCYTES 1.3 % (0-5); LYMPHOCYTES 13.2 % (15-50); MCH 30.1 pg (26.0-34.0); MCHC 33.4 g/dL (31.0-37.0); MEAN PLATELET VOLUME 9.1 fL (7.4-10.4); MONOCYTES 8.9 % (2-11); NEUTROPHILS 75.6 % (40-80); RBC 4.39 10x6/uL (4.20-6.10); RDW 15.8 % (11.5-14.5); WBC 13.4 10x3/uL (4.8-10.8)
[2018-11-12 15:16] LABS: PLATELET COUNT 382 10x3/uL (130-400)
[2018-11-12 15:44] LABS: ALBUMIN 3.3 g/dL (3.4-5.0); ALKALINE PHOSPHATASE 89 U/L (46-116); ALT (SGPT) 24 U/L (10-68); BILIRUBIN - TOTAL 0.33 mg/dL (0.2-1.3); CALC OSMOLALITY 303 mosm/kg (275-300); CARBON DIOXIDE 34.7 mmol/L (21.0-32.0); CHLORIDE - SERUM 98 mmol/L (98-107); CKMB 6.9 U/L (0.0-3.6); CREATINE KINASE 51 UL (21-232); CREATININE - SERUM 3.2 mg/dL (0.6-1.3); GLUCOSE 102 mg/dL (74-106); MAGNESIUM - SERUM 2.6 mg/dL (1.8-2.4); POTASSIUM - SERUM 5.2 mmol/L (3.5-5.1); PROTEIN - SERUM 7.4 g/dL (6.4-8.2); SODIUM 137 mmol/L (136-145); UREA NITROGEN 97 mg/dL (7-18); eGFR NON AFRICAN AMERICAN 21 mL/min (90-120)
[2018-11-12 15:46] LABS: CALCIUM 14.5 mg/dL (8.5-10.1)
[2018-11-12 15:49] LABS: TROPONIN-I 0.409 ng/mL (0.000-0.060)
[2018-11-12 15:58] VITALS: BP 124/67
[2018-11-12 16:40] VITALS: BP 114/56
[2018-11-12 16:59] LABS: PHOSPHOROUS 6.3 mg/dL (2.5-4.9); THYROID STIMULATING HORMONE 4.28 uIU/mL (0.36-3.74)
[2018-11-12 17:19] VITALS: BP 136/62
[2018-11-12 17:33] VITALS: BP 136/72; BMI 19.5
[2018-11-12] MEDS ORDERED: LIPITOR40 MG PO (18:17)
[2018-11-12] MEDS ORDERED: COLACE100 MG PO (18:18)
[2018-11-12] MEDS ORDERED: FOLIC ACID1 MG PO (18:19)
[2018-11-12] MEDS ORDERED: LEXAPRO20 MG PO (18:20)
[2018-11-12] MEDS ORDERED: MAG-OX 400 MG400 MG PO (18:21)
[2018-11-12] MEDS ORDERED: MEGACE ES625 MG/5 M PO (18:22)
[2018-11-12] MEDS ORDERED: HYDROCODON-ACE1 EAC2 PO (18:23)
[2018-11-12] MEDS ORDERED: K-TAB10 MEQ PO (18:23)
[2018-11-12] MEDS ORDERED: RANITIDINE HCL150 M1 PO (18:25)
[2018-11-12] MEDS ORDERED: VITAMIN D10000 UNI1 PO (18:28)
[2018-11-12] MEDS ORDERED: ZOFRAN ODT4 MG/UDTAB PO (18:29)
--- NOTE | 2018-11-12 19:14 | NUR ---
EVENING ROUNDS COMPLETED. REPORT RECEIVED. PT SITTING UP IN BED WITH EYES OPEN, RR EVEN AND UNLABORED. BRONWYN ALARM IN PLACE. INTRODUCED SELF TO PT. PT DENIES FURTHER NEEDS AT THIS TIME. ORDERED FLUIDS (BANANA BAG) COULD NOT BE ADMINISTERED, PHARMACY NOT AVAILABLE. NOTIFIED MANAGER EDUCATION QUIQUE. CALL LIGHT IN REACH. WILL CTM.
[2018-11-12 19:45] VITALS: BP 129/68
--- NOTE | 2018-11-12 22:00 | NUR ---
AFTER HEARING LOUD NOISE FROM PT ROOM, MOISES YANG RN ATTEMPTED TO ENTER PT ROOM BUT WAS UNABLE TO ENTER ROOM PT WAS LEANING UPON DOOR. AFTER ENTERING ROOM PT WAS FOUND LAYING ON RIGHT SIDE IN FLOOR. THE PT HAD ATTEMPTED TO STAND USING HIS IV POLE AND FELL TO THE GROUND. AFTER FURTHER INSPECTION, THE BRONWYN ALARM HAD BEEN SET INTO THE ON POSITION BUT THE BATTERY NO LONGER HELD A CHARGE, THEREFORE THERE WAS NO SOUND ALERTED WHEN PT EXITED HIS BED. PT WAS ASSISTED BACK TO BED BY MARINO RAMOS RN AND UZMA AGEE LPN. THE OLD BRONWYN ALARM WAS REMOVED FROM THE ROOM AND TURNED INTO PRECISION INSPECTOR, GENEVIEVE KING. THE NEW BRONWYN ALARM WAS PLACED AND ACTIVATED. DR DELEON WAS NOTIFIED OF THE FALL AND ORDERED A STAT HEAD CT WELL FALL PRECAUTIONS TO BE PUT INTO PLACE. THE PT'S SISTER LUISA WAS NOTIFIED BY PHONE CALL.
[2018-11-12 23:44] VITALS: BP 140/71
--- NOTE | 2018-11-13 01:24 | NUR ---
DRESSED SKIN TEAR ON LEFT ELBOW WITH PETROLEUM DRESSING AND COVERED WITH KERLIX DRESSING. SLIGHT RED DRAINAGE NOTED.
[2018-11-13 01:52] LABS: APPEARANCE CLEAR (CLEAR); BILIRUBIN NEGATIVE (NEGATIVE); COLOR YELLOW (YELLOW); GLUCOSE NEGATIVE (NEGATIVE); KETONE NEGATIVE (NEGATIVE); NITRITE NEGATIVE (NEGATIVE); PROTEIN NEGATIVE (NEGATIVE); UROBILINOGEN NORMAL (NORMAL)
--- NOTE | 2018-11-13 02:49 | NUR ---
I have reviewed this patient and I concur with the Shift Assessment completed by the Licensed Practical Nurse today this shift.
[2018-11-13 03:42] VITALS: BP 135/64
[2018-11-13 05:31] LABS: BASOPHILS 0.2 % (0-2); HEMATOCRIT 34.9 % (42.0-54.0); HEMOGLOBIN 11.7 g/dL (13.5-17.5); IMMATURE GRANULOCYTES 1.2 % (0-5); LYMPHOCYTES 15.1 % (15-50); MCH 29.6 pg (26.0-34.0); MCHC 33.5 g/dL (31.0-37.0); MCV 88.4 fL (80.0-100.0); MEAN PLATELET VOLUME 9.1 fL (7.4-10.4); MONOCYTES 7.9 % (2-11); NEUTROPHILS 74.6 % (40-80); PLATELET COUNT 345 10x3/uL (130-400); RBC 3.95 10x6/uL (4.20-6.10); RDW 15.5 % (11.5-14.5); WBC 12.9 10x3/uL (4.8-10.8)
[2018-11-13 05:59] LABS: ALBUMIN 2.8 g/dL (3.4-5.0); ANION GAP 9.1 mmol/L (8-16); BILIRUBIN - TOTAL 0.38 mg/dL (0.2-1.3); CARBON DIOXIDE 34.5 mmol/L (21.0-32.0); CREATININE - SERUM 3.4 mg/dL (0.6-1.3); MAGNESIUM - SERUM 2.4 mg/dL (1.8-2.4); PHOSPHOROUS 5.8 mg/dL (2.5-4.9); POTASSIUM - SERUM 4.6 mmol/L (3.5-5.1)
[2018-11-13 06:05] LABS: CALCIUM 13.3 mg/dL (8.5-10.1)
--- NOTE | 2018-11-13 06:18 | NUR ---
PT SITTING UP IN BED WITH EYES OPEN, RR EVEN AND UNLABORED. BRONWYN ALARM TURNED ON AND IN PLACE BENEATH PT. NO S/S OF DISTRESS NOTED. CALL LIGHT IN REACH, 72 PACED ON TELEMETRY. WILL CTM.
--- NOTE | 2018-11-13 07:00 | NUR ---
LYING IN BED RESTING WITH EASE. AROUSES TO VERBAL STIMULI. NEURO CHECKS INTACT. FALL ALARM IS ON AND CL IN REACH. IV SITE IS CLEAR INFUSING WITHOUT DIFFICULTY.
[2018-11-13 07:59] VITALS: BP 135/55
--- NOTE | 2018-11-13 09:15 | NUR ---
INCONTINENT CARE GIVEN. NO CHANGE IN NEURO STATUS NOTED. REMAINS CONFUSED WITH REORIENTATION OFTEN. IV SITE CLEAR WITH BANANA BAG INFUSING. CL IN REACH.
[2018-11-13 09:57] LABS: % SATURATION 22 % (15-55); IRON 50 ug/dl (35-150); TOTAL IRON BIND CAPACITY 221 ug/dl (260-445); UNSAT IRON BIND CAPACITY 171 ug/dl (150-375)
[2018-11-13 12:04] VITALS: BP 138/60
[2018-11-13 12:18] VITALS: Ht 180.3 cm; Wt 63.6 kg
--- NOTE | 2018-11-13 12:36 | NUR ---
EATING LUNCH AT THIS TIME. HE GOT CONFUSED AND GOT UP OUT OF BED AND WAS STANDING BESIDE IN WHEN PHYSICAL THERAPY HELPED HIM GET BACK IN BED, BED ALARM IS ON BUT HE THOUGHT IT WAS TIME TO GO HOME. REORIENT AT THIS TIME. NO CHANGE IN NEURO STATUS.
--- NOTE | 2018-11-13 13:00 | NUR ---
REPORTED HE STATED HE COULDNT BREATHE. I WENT IN AND HE HAD HIS OXYGEN IN PLACE. O2 SAT WAS 96% BBS ARE CLEAR. NO CHANGE IN RESP STATUS. HE BECAME CALM AFTER WORKING WITH HIM TO BREATHE IN HIS NOSE AND OUT HIS MOUTH.
--- NOTE | 2018-11-13 14:23 | NUR ---
HE WAS ATTEMPTING TO GET OUT OF BED REQUESTED PEE JUG THEN COKE THEN BEER. DID NOT USE THE URINAL WHEN OFFERED DENIED NEEDING TO GO. HE WAS ASSISTED UP BY SUPPORTIVE EMPLOYMENT CASE MANAGER'S EARLIER AND WENT TO BATHROOM AND HAD BM. I DID GIVE HIM A COKE.
--- NOTE | 2018-11-13 16:15 | NUR ---
INCONTINENT OF URINE. CARE GIVEN AND CLEAN PAD AND PULL UP APPLIED. HE HAS NO CHANGE IN NEURO STATUS, STILL CONFUSED STATES I AM NOT STAYING HERE TONIGHT. HE HAD HIS GOODWILL REPRESENTATIVE OFF IN HIS HAND AND IT WAS REPLACED. HE WAS COOPERATIVE WITH CARE. REORIENT AND CONTINUES TO HAVE BRONWYN/BED ALARM ON.
--- NOTE | 2018-11-13 17:04 | NUR ---
DR TREVINO HERE AND WANTED A BLADDER SCAN DONE. THIS WAS DONE WITH RESULT OF 0 AND REPORTED TO HIM.
[2018-11-13] MEDS ORDERED: ROCALTROL0.5 MCG PO ×2 (17:42→17:53)
--- NOTE | 2018-11-13 18:30 | NUR ---
ULTRANSOUND OF KIDNEYS DONE AT THIS TIME.
--- NOTE | 2018-11-13 19:15 | NUR ---
PATIENT LAYING IN BED. NO COMPLAINTS AT THIS TIME. NO DISTRESS NOTED.
[2018-11-13 20:00] VITALS: BP 121/69
--- NOTE | 2018-11-13 22:45 | NUR ---
PATIENT PULLED OUT IV. IV TIP INTACT.
[2018-11-14 00:02] VITALS: BP 159/79
--- NOTE | 2018-11-14 01:11 | NUR ---
PATIENT LAYING IN BED. EYES CLOSED, CHEST RISING AND FALLING. NO DISTRESS NOTED.
[2018-11-14 04:00] VITALS: BP 133/71
[2018-11-14 05:51] LABS: BASOPHILS 0.2 % (0-2); EOSINOPHILS 1.4 % (0-7); HEMATOCRIT 36.9 % (42.0-54.0); HEMOGLOBIN 12.5 g/dL (13.5-17.5); IMMATURE GRANULOCYTES 1.7 % (0-5); LYMPHOCYTES 14.2 % (15-50); MCH 30.1 pg (26.0-34.0); MCHC 33.9 g/dL (31.0-37.0); MCV 88.9 fL (80.0-100.0); MONOCYTES 7.2 % (2-11); NEUTROPHILS 75.3 % (40-80); PLATELET COUNT 342 10x3/uL (130-400); RBC 4.15 10x6/uL (4.20-6.10); RDW 15.9 % (11.5-14.5); WBC 11.4 10x3/uL (4.8-10.8)
[2018-11-14 06:16] LABS: ALBUMIN 3.1 g/dL (3.4-5.0); ANION GAP 13.8 mmol/L (8-16); BILIRUBIN - TOTAL 0.35 mg/dL (0.2-1.3); CARBON DIOXIDE 30.9 mmol/L (21.0-32.0); CREATININE - SERUM 3.5 mg/dL (0.6-1.3); MAGNESIUM - SERUM 2.9 mg/dL (1.8-2.4); PHOSPHOROUS 5.7 mg/dL (2.5-4.9); POTASSIUM - SERUM 4.7 mmol/L (3.5-5.1); PROTEIN - SERUM 7.2 g/dL (6.4-8.2)
--- NOTE | 2018-11-14 06:30 | NUR ---
IV ATTEMPTED X6 BY 3 NURSES. WILL PASS IN REPORT TO HAVE VASCULAR NURSE CHECK.
--- NOTE | 2018-11-14 06:55 | NUR ---
RECEIVED REPORT. ASSUMED CARE OF PATIENT. PATIENT WITH EYES OPEN. PATIENT NOTED TO HAVE TREMORS. PATIENT ASKING FOR SANDWICH. ORANGE JUICE PROVIDED NO SANDWICH ON UNIT. RESP EVEN AND UNLABORED. NO IV ACCESS AT THIS TIME. CALL LIGHT PLACED WITHIN REACH. NO DISTRESS.
--- NOTE | 2018-11-14 07:01 | NUR ---
22 GAUGE IV PLACED X 1 STICK TO RIGHT FOREARM. TOLERATED IV PLACEMENT WELL. TAPED, DATED, AND SECURED. NO DISTRESS.
--- NOTE | 2018-11-14 07:06 | NUR ---
MEDICATED FOR DELIRUM TREMORS AT THIS TIME. CALL LIGHT WITHIN REACH. SR UP FOR SAFETY. BED ALARM PATENT.
[2018-11-14 09:18] VITALS: BP 143/71
--- NOTE | 2018-11-14 12:24 | NUR ---
ASSISTED MARIELY DONAHUE TO CHAIR AT BEDSIDE. INCONTINENT CARES PROVIDED. PATIENT CONFUSED BUT FOLLOWING DIRECTIONS. CALL LIGHT WITHIN REACH. BRONWYN MAT TO CHAIR.
--- NOTE | 2018-11-14 12:40 | NUR ---
PATIENT CONTINUES TO TRY TO GET OUT OF CHAIR UNASSISTED. CALL LIGHT WITHINH REACH BUT WILL NOT USE IT. PATIENT FOLLOWS COMMANDS WHEN NURSE AT BEDSIDE BUT MEMORY SPAN SEEMS TO BE LESS THAN 2 MINUTES ONCE NURSE LEAVES THE ROOM. PATIENT NEEDS ONE ON ONE SUPERVISION TO PREVENT FALL AND KEEP PATIENT SAFE. ONE ON ONE NOT ABLE TO BE PROVIDED AT THIS TIME. CALL LIGHT WITHIN REACH.A
[2018-11-14 15:12] LABS: FOLATE (FOLIC ACID) - SERUM >20.0 ng/mL (>3.0)
--- NOTE | 2018-11-14 16:41 | NUR ---
RESTING IN BED WITH EYES CLOSED. NO DISTRESS. CALL LIGHT WITHIN REACH.
--- NOTE | 2018-11-14 18:22 | NUR ---
PATIENTS MAGNESIUM LEVEL IS ELEVATED THIS AM AND PATIENT IS NOW SCHEDULED TO HAVE A BANANA BAG WITH MAGESIUM IN IT. PATIENTS MAG LEVEL INCREASED AFTER BANANA BAG YESTERDAY. NEW ORDERS FROM BENJY TO DRAW MAG LEVEL NOW AND IF MAG IS STILL ELEVATED, DO NOT GIVE BANANA BAG. PHARMACY SUGGESTED TO D/C BANANA BAG IF MAG IS STILL ELEVATED. AWAITING FOR LAB RESULT NOW.
[2018-11-14 18:42] VITALS: BP 121/52
[2018-11-14 18:51] VITALS: BP 120/74
[2018-11-14 20:00] VITALS: BP 123/61
--- NOTE | 2018-11-14 20:19 | NUR ---
RESTING QUIELTY WITH NO DISTRESS NOTED. O2 @ 2L PER NC ON. RESP UNLABORED. CL IN REACH. FALL PRECAUTIONS IN PLACE.
[2018-11-15 00:08] VITALS: BP 109/62
--- NOTE | 2018-11-15 02:58 | NUR ---
I have reviewed this patient and I concur with the Shift Assessment completed by the Licensed Practical Nurse today this shift.
[2018-11-15 04:00] VITALS: BP 132/66
[2018-11-15 05:08] LABS: BASOPHILS 0.2 % (0-2); EOSINOPHILS 1.6 % (0-7); HEMATOCRIT 30.4 % (42.0-54.0); HEMOGLOBIN 10.2 g/dL (13.5-17.5); IMMATURE GRANULOCYTES 1.4 % (0-5); LYMPHOCYTES 12.7 % (15-50); MCH 29.7 pg (26.0-34.0); MCHC 33.6 g/dL (31.0-37.0); MCV 88.4 fL (80.0-100.0); MEAN PLATELET VOLUME 9.1 fL (7.4-10.4); MONOCYTES 7.2 % (2-11); NEUTROPHILS 76.9 % (40-80); PLATELET COUNT 354 10x3/uL (130-400); RBC 3.44 10x6/uL (4.20-6.10); RDW 15.8 % (11.5-14.5); WBC 9.8 10x3/uL (4.8-10.8)
[2018-11-15 05:25] LABS: ALBUMIN 2.6 g/dL (3.4-5.0); ANION GAP 12.9 mmol/L (8-16); BILIRUBIN - TOTAL 0.37 mg/dL (0.2-1.3); CALCIUM 10.6 mg/dL (8.5-10.1); CARBON DIOXIDE 27.1 mmol/L (21.0-32.0); CREATININE - SERUM 3.6 mg/dL (0.6-1.3); MAGNESIUM - SERUM 2.6 mg/dL (1.8-2.4); PHOSPHOROUS 5.1 mg/dL (2.5-4.9); PROTEIN - SERUM 6.4 g/dL (6.4-8.2)
--- NOTE | 2018-11-15 08:19 | NUR ---
RESUMING PT CARE, PT LAYING IN BED WITH EYES CLOSED, RESPIRATIONS EVEN AND UNLABORED. CALL LIGHT IN REACH, WILL CONTINUE TO MONITOR AND FOLLOW PLAN OF CARE.
[2018-11-15 08:44] VITALS: BP 110/60
--- NOTE | 2018-11-15 10:23 | NUR ---
I have reviewed this patient and I concur with the Shift Assessment completed by the Licensed Practical Nurse today this shift.
[2018-11-15 11:40] VITALS: BP 112/59
--- NOTE | 2018-11-15 12:30 | NUR ---
PT RESTING IN BED AT THIS TIME. DENIES ANY NEEDS AT THIS TIME. WILL CONT TO FOLLOW POC
[2018-11-15 15:46] VITALS: BP 125/68
--- NOTE | 2018-11-15 16:22 | NUR ---
SPOKE WITH BENJY MABRY REGARDING PT MG LEVEL IS 2.8 BUT PT IS SCHEDULED TO GET A BANANA BAG. PER BENJY, OK TO HOLD CAMILLEIGHT
--- NOTE | 2018-11-15 18:25 | MORECARE ---
CASE MANAGEMENT DISCHARGE SUMMARY PATIENT: TERA GREEN UNIT: [id number] ADM DATE: 11/12/18 AGE: 63 : 53 SEX: M ROOM/BED: D.2103 AUTHOR: KAJAL CROSS PHYSICIAN: REFERRING PHYSICIAN: SHLOMO DELEON MD DATE OF SERVICE: 11/15/18 Discharge Plan Patient Name: TERA GREEN [facility] [facility] 1955 Planned Disposition: Snf Care Fac MCR Anticipated Discharge Date: Discharge Date: Expected LOS: Initial Reviewer: [email or web address] Initial Review Date: 11/12/2018 Generated: 11/15/18 7:25 pm Patient Name: TERA GREEN Page 26827 at 1825 All edits/amendments must be made on the electronic document DICTATION DATE: 11/15/181823 TRUCK RAILROAD AND BUS MOTOR MECHANIC: CELESTINA 11/15/181823 [facility]#: [id number] DC DATE: STATUS: ADM IN [facility] [address] [place] [address] END OF REPORT
--- NOTE | 2018-11-15 18:32 | MORECARE ---
CASE MANAGEMENT DISCHARGE SUMMARY PATIENT: TERA GREEN UNIT: [id number] ADM DATE: 11/12/18 AGE: 63 : 53 SEX: M ROOM/BED: D.2103 AUTHOR: KAJAL CROSS PHYSICIAN: REFERRING PHYSICIAN: SHLOMO DELEON MD DATE OF SERVICE: 11/15/18 Discharge Plan Patient Name: TERA GREEN [facility] [facility] 1955 Planned Disposition: Snf Care Fac MCR Anticipated Discharge Date: Discharge Date: Expected LOS: Initial Reviewer: [email or web address] Initial Review Date: 11/12/2018 Generated: 11/15/18 7:32 pm Last DP export: 11/15/18 5:25 p Patient Name: TERA GREEN Page 93437 at 1832 All edits/amendments must be made on the electronic document DICTATION DATE: 11/15/181831 THREAD SPINNER: CELESTINA 11/15/181831 RPT#: [id number] DC DATE: STATUS: ADM IN [facility] [address] [place] [address] END OF REPORT
--- NOTE | 2018-11-15 18:40 | MORECARE ---
CASE MANAGEMENT DISCHARGE SUMMARY PATIENT: TERA GREEN UNIT: [id number] ADM DATE: 11/12/18 AGE: 63 : 53 SEX: M ROOM/BED: D.2103 AUTHOR: KAJAL CROSS PHYSICIAN: REFERRING PHYSICIAN: SHLOMO DELEON MD DATE OF SERVICE: 11/15/18 Discharge Plan Patient Name: TERA GREEN [facility] [facility] 1955 Planned Disposition: Shelter Care Fac MCR Anticipated Discharge Date: Discharge Date: Expected LOS: Initial Reviewer: [email or web address] Initial Review Date: 11/12/2018 Generated: 11/15/18 7:39 pm Comments DCP- Discharge Planning Updated by [email or web address]: Jaylyn Genao on 11/15/18 5:[address] Late Entry 1000 CM to patient's bedside to speak with the patient regarding discharge planning. He was very sedated. CM spoke with the primary nurse. Patient had been sedated with Ativan for tremors and restlessness. Revisited this afternoon. He is arousable but CM unable to discuss dcp. TC to [facility]. Spoke w/ Trish. She stated the patient is in termite control service representative care. They are expecting him to return at discharge. Clinical update faxed as per request. Clinical faxed to [phone]. CM to follow to assist with discharge planning. [facility] contact phone number- [phone]. Last DP export: 11/15/18 5:32 p Patient Name: TERA GREEN Page 44542 at 1840 All edits/amendments must be made on the electronic document DICTATION DATE: 11/15/181838 DIRECTOR CRAFT CENTER: CELESTINA 11/15/181838 RPT#: [id number] DC DATE: STATUS: ADM IN [facility] [address] [place] [address] END OF REPORT
[2018-11-15 20:00] VITALS: BP 128/53
--- NOTE | 2018-11-15 20:29 | NUR ---
EVENING ROUNDS COMPLETED. VSS, AAOX2, NO S/S OF DISTRESS. PIV TO RFA INTACT. PT HAD AN INCONTINENT BLADDER EPISODE. CLEANED PT BED AND PROVIDED PT WITH CLEAN LINEN. PT VOICED THANKS. WILL CPOC. CL IN REACH, BED IN LOW.
[2018-11-16] VITALS: BP 126/72
[2018-11-16 04:00] VITALS: BP 134/55
--- NOTE | 2018-11-16 04:18 | NUR ---
PT FOUND TRYING TO GET OUT OF BED WHEN BRONWYN ALARM WENT OFF. HELPED PT BACK IN BED AND EDUCATE PT ON THE NEED TO TO STAY IN BED. PROVIDED URINAL PER PT REQUEST. PT HAS PUT OUT A TOTAL OF 600CC'S AT THIS TIME. WILL CTM.
[2018-11-16 05:38] LABS: BASOPHILS 0.2 % (0-2); EOSINOPHILS 1.5 % (0-7); HEMATOCRIT 33.6 % (42.0-54.0); HEMOGLOBIN 10.9 g/dL (13.5-17.5); IMMATURE GRANULOCYTES 0.7 % (0-5); LYMPHOCYTES 14.3 % (15-50); MCHC 32.4 g/dL (31.0-37.0); MCV 89.4 fL (80.0-100.0); MEAN PLATELET VOLUME 9.1 fL (7.4-10.4); NEUTROPHILS 76.3 % (40-80); PLATELET COUNT 341 10x3/uL (130-400); RBC 3.76 10x6/uL (4.20-6.10); WBC 9.8 10x3/uL (4.8-10.8)
[2018-11-16 06:41] LABS: ALBUMIN 2.7 g/dL (3.4-5.0); ANION GAP 11.4 mmol/L (8-16); BILIRUBIN - TOTAL 0.36 mg/dL (0.2-1.3); CALCIUM 10.1 mg/dL (8.5-10.1); CARBON DIOXIDE 29.3 mmol/L (21.0-32.0); CREATININE - SERUM 3.2 mg/dL (0.6-1.3); MAGNESIUM - SERUM 2.6 mg/dL (1.8-2.4); PHOSPHOROUS 4.6 mg/dL (2.5-4.9); POTASSIUM - SERUM 3.7 mmol/L (3.5-5.1); PROTEIN - SERUM 6.9 g/dL (6.4-8.2)
--- NOTE | 2018-11-16 07:33 | NUR ---
ROUNDING DONE WITH PATIENT BEING ON BRONWYN ALARM MAT, ON. NASAL CANNULA IS IN MOUTH AT THIS TIME. LEFT FA SEEN WITH DRY, INTACT CROW. ON HEART MONITOR SHOWING PACED, HR 77. RIGHT FA PIV SEEN WITH SALINE LOCK.
[2018-11-16 08:18] VITALS: BP 119/64
[2018-11-16 12:39] VITALS: BP 121/58
--- NOTE | 2018-11-16 13:03 | NUR ---
PAST LUNCH, PATIENT IS LAYING ON LEFT SIDE WITH SHEET OVER HEAD. BRONWYN MAT ALARM IN USE AND ON.
--- NOTE | 2018-11-16 14:17 | NUR ---
NO URINE YET FOR THIS SHIFT. HAS NOT BEEN INCONT. WILL CONTINUE TO MONITOR.
[2018-11-16 16:50] VITALS: BP 107/60
--- NOTE | 2018-11-16 18:02 | NUR ---
PATIENT HAS NOT HAD A STOOL FOR COLLECTION FOR THIS SHIFT. WILL PASS ALONG TO NEXT SHIFT.
[2018-11-16 21:04] VITALS: BP 98/48
[2018-11-17 01:29] VITALS: BP 122/53
[2018-11-17 04:04] LABS: BASOPHILS 0.3 % (0-2); EOSINOPHILS 1.3 % (0-7); HEMATOCRIT 29.1 % (42.0-54.0); HEMOGLOBIN 9.7 g/dL (13.5-17.5); IMMATURE GRANULOCYTES 0.5 % (0-5); LYMPHOCYTES 16.9 % (15-50); MCH 29.2 pg (26.0-34.0); MCHC 33.3 g/dL (31.0-37.0); MCV 87.7 fL (80.0-100.0); MEAN PLATELET VOLUME 8.7 fL (7.4-10.4); MONOCYTES 8.4 % (2-11); NEUTROPHILS 72.6 % (40-80); PLATELET COUNT 295 10x3/uL (130-400); RBC 3.32 10x6/uL (4.20-6.10); RDW 15.5 % (11.5-14.5); WBC 9.4 10x3/uL (4.8-10.8)
[2018-11-17 04:23] LABS: ALBUMIN 2.4 g/dL (3.4-5.0); BILIRUBIN - TOTAL 0.26 mg/dL (0.2-1.3); CALCIUM 9.3 mg/dL (8.5-10.1); CARBON DIOXIDE 27.4 mmol/L (21.0-32.0); MAGNESIUM - SERUM 2.6 mg/dL (1.8-2.4); PHOSPHOROUS 3.7 mg/dL (2.5-4.9); POTASSIUM - SERUM 3.4 mmol/L (3.5-5.1)
[2018-11-17 06:22] VITALS: BP 131/75
[2018-11-17 08:13] VITALS: BP 154/76
--- NOTE | 2018-11-17 09:48 | NUR ---
PATIENT LAYING IN BED ON BACK AWAKE ALERT. PATIENT ORIENTED TO NAME, AND OPLACE ONLY. PATIENT IS STABLE AND VSS. PATIENT DENEIS ANY NEEDS OR PAIN. ASSESSMENT COMPLETED. WILL CONTINUE WITH PLAN OF CARE. SR UP X2 BED IN LOW POSITION AND CALL LIGHT IN REACH.
[2018-11-17 11:45] VITALS: BP 112/58
--- NOTE | 2018-11-17 12:47 | NUR ---
Nutrition follow-up: RDN visited with pt during breakfast. Pt ate ~50% of meals. Pt stated he needed to be fed due to hands shaking. RDN pasted this on to nurse. Diet: Renal PO Intake ~25-50% of some meals Labs reviewed Pt is now assessed with severe malnutrition of chronic illness R/T CKD AEB 1) < 75% energy intake for > 1 month 2) measurably reduced waste treatment operator strength Will continue to provide food choices and honor food preferences Will offer nutritional supplements Pt may benefit from addition of an appetite stimulant. RDN following.
--- NOTE | 2018-11-17 14:26 | NUR ---
PATIENT RESTING QUIETLY IN BED. REPOSITIONED PATIENT TO RT SIDE. VSS AND PATIENT IS STABLE AND UNCHANGED. WILL CONTINUE TO MONITOR. SR UP X 2 BED IN LOW POSITION AND CALL LIGHT IN REACH.
--- NOTE | 2018-11-17 16:26 | NUR ---
IV TO RT FA INFILTRATED. NEW IV RE-SITED TO LT FA 22 GAUGE WITHOUT DIFFICULTY.PATIENT TOLERATED WELL. WILL CONTINUE TO MONITOR. SR UP X 2 BED IN LOW POSITION AND CALL LIGHT IN REACH.
[2018-11-17 16:29] VITALS: BP 108/59
[2018-11-17 20:00] VITALS: BP 83/40
--- NOTE | 2018-11-17 22:47 | NUR ---
PATIENT RESTING COMFORTABLY IN BED ON RT SIDE. PATIENT IS STABLE AND VSS. BRONWYN BED ALARM IN PLACE AND WORKING. WILL CONTINUE TO MONITOR. SR UP X 2 BED IN LOW POSITION AND CALL LIGHT IN PLACE.
--- NOTE | 2018-11-18 00:11 | NUR ---
RESUMING PATIENT CARE. PATIENT IS RESTING COMFORTABLY IN BED. RESPIRATIONS ARE EVEN AND UNLABORED. NO S/S OF DISTRESS. NO C/O PAIN. CALL LIGHT WITHIN REACH. ROBBIN FOSTEROC.
--- NOTE | 2018-11-18 02:34 | NUR ---
PATIENT ALERT EATING ICE CREAM. ALL NEEDS MET. CALL LIGHT WITHIN REACH. WILL CPOC.
[2018-11-18 03:40] LABS: BASOPHILS 0.3 % (0-2); EOSINOPHILS 1.8 % (0-7); HEMATOCRIT 28.5 % (42.0-54.0); HEMOGLOBIN 9.5 g/dL (13.5-17.5); IMMATURE GRANULOCYTES 0.6 % (0-5); LYMPHOCYTES 15.8 % (15-50); MCH 29.4 pg (26.0-34.0); MCHC 33.3 g/dL (31.0-37.0); MCV 88.2 fL (80.0-100.0); MONOCYTES 7.1 % (2-11); NEUTROPHILS 74.4 % (40-80); PLATELET COUNT 300 10x3/uL (130-400); RBC 3.23 10x6/uL (4.20-6.10); RDW 15.7 % (11.5-14.5); WBC 10.7 10x3/uL (4.8-10.8)
[2018-11-18 03:57] LABS: ALBUMIN 2.6 g/dL (3.4-5.0); BILIRUBIN - TOTAL 0.31 mg/dL (0.2-1.3); CALCIUM 9.1 mg/dL (8.5-10.1); CARBON DIOXIDE 28.2 mmol/L (21.0-32.0); CREATININE - SERUM 2.8 mg/dL (0.6-1.3); POTASSIUM - SERUM 3.2 mmol/L (3.5-5.1); PROTEIN - SERUM 6.2 g/dL (6.4-8.2)
[2018-11-18 04:00] VITALS: BP 96/48
--- NOTE | 2018-11-18 07:10 | NUR ---
REPORT RECEIVED FROM [facility] CERTIFIED CONCIERGE AND PATIENT CARE ASSUMED. PATIENT LAYING IN BED ON RT SIDE WITH EYES CLOSED AND BREATHING EVENLY. PATIENT IS STABLE AND VSS. WILL CONTINUE WITH PLAN OF CARE. SR UP X 2 BED IN LOW POSITION AND CALL LIGHT IN REACH.
[2018-11-18 08:33] VITALS: BP 129/66
--- NOTE | 2018-11-18 10:49 | MORECARE ---
CASE MANAGEMENT DISCHARGE SUMMARY PATIENT: TERA GREEN UNIT: [id number] ADM DATE: 11/12/18 AGE: 63 : 53 SEX: M ROOM/BED: D.2103 AUTHOR: TAY,DOC PHYSICIAN: REFERRING PHYSICIAN: SHLOMO DELEON MD DATE OF SERVICE: 11/18/18 Discharge Plan Patient Name: TERA GREEN Facility: [facility]:[place] : 1955 Planned Disposition: Allied Health Professional Care [facility] Anticipated Discharge Date: Discharge Date: Expected LOS: Initial Reviewer: [email or web address] Initial Review Date: 11/12/2018 Generated: 11/18/18 11:48 am Comments DCP- Discharge Planning Updated by [email or web address]: Christiana Gale on 11/18/18 9:[address] Patient Name: TERA GREEN Admission Status: ER Accout number: [id number] Admission Date: 11-12-2018 : 1955 Admission Diagnosis:UNSPECIFIED ABDOMINAL PAIN Attending: SHLOMO DELEON Current LOS: 6 Anticipated DC Date: Planned Disposition: [facility] Professional Care [facility] Primary Insurance: MEDICARE A & B Discharge Planning Comments: CM consulted to see if [facility] would take pt back today. I called and Cici stated they would but DON would prefer not to until Tuesday because she (Cici) did not know how to do an admission. CM sees no reason to hold pt . Net Ui Developer: Christiana Gale DCP- Discharge Planning Updated by [email or web address]: Jaylyn Genao on 11/15/18 5:[address] Late Entry 1000 CM to patient's bedside to speak with the patient regarding discharge planning. He was very sedated. CM spoke with the primary nurse. Patient had been sedated with Ativan for tremors and restlessness. Revisited this afternoon. He is arousable but CM unable to discuss dcp. TC to [facility]. Spoke w/ Trish. She stated the patient is in intermediate care. They are expecting him to return at discharge. Clinical update faxed as per request. Clinical faxed to [phone]. CM to follow to assist with discharge planning. [facility] contact phone number- [phone]. Last DP export: 11/15/18 5:40 p Patient Name: TERA GREEN Page [id number] at 1049 All edits/amendments must be made on the electronic document DICTATION DATE: 11/18/181047 DRAFTER CIVIL ENGINEERING: CELESTINA 11/18/18 1048 RPT#: [id number] DC DATE: STATUS: ADM IN [facility] [address] [place] [address] END OF REPORT
--- NOTE | 2018-11-18 11:17 | NUR ---
PATIENT RESTING COMFORTABLY IN BED. DENIES ANY NEEDS OR PAIN. ASSESSMENT COMPLETED. WILL CONTINUE TO MONITOR. SR UP X 2 BED IN LOW POSITION AND CALL LIGHT IN REACH. BRONWYN BED ALARM IN PLACE AND WORKING.
[2018-11-18 12:16] VITALS: BP 132/71
--- NOTE | 2018-11-18 13:27 | NUR ---
ORDERS RECEIVED FOR DC. WRITTEN AND VERBAL INSTRUCTIONS GIVEN TO PATIENT. PATIENT VERBALIZED UNDERSTANDING. PATIENT UNABLE TO SIGN PAPERWORK DUE TO TREMORS. CALLED REPORT TO [facility] AND GAVE REPORT TO MICKI CONTI LPN. PATIENT IS STABLE AND VSS. PATIENT TO FRONT DOOR VIA AND [facility] PERSONNEL.
--- NOTE | 2018-11-18 13:56 | MORECARE ---
CASE MANAGEMENT DISCHARGE SUMMARY PATIENT: TERA GREEN UNIT: [id number] ADM DATE: 11/12/18 AGE: 63 : 53 SEX: M ROOM/BED: D.2103 AUTHOR: TAYDOC PHYSICIAN: REFERRING PHYSICIAN: SHLOMO DELEON MD DATE OF SERVICE: 11/18/18 Discharge Plan Patient Name: TERA GREEN Facility: [facility]:[place] : 1955 Planned Disposition: Physical Therapy Aid Care [facility] Anticipated Discharge Date: Discharge Date: 11/18/2018 Expected LOS: Initial Reviewer: [email or web address] Initial Review Date: 11/12/2018 Generated: 11/18/18 2:56 pm Comments DCP- Discharge Planning Updated by [id number]: Christiana Gale on 11/18/18 12:[address] Patient Name: TERA GREEN Admission Status: ER Accout number: [id number] Admission Date: 11-12-2018 : 1955 Admission Diagnosis:UNSPECIFIED ABDOMINAL PAIN Attending: SHLOMO DELEON Current LOS: 6 Anticipated DC Date: Planned Disposition: Senior Care Care [facility] Primary Insurance: MEDICARE A & B Discharge Planning Comments: CM CALLED [facility] TO LT BED TO NOTIFY OF DC. THEY STATED THEY BEV LABORER ORCHARD AROUND 1 PM TODAY Bottom Polisher: Christiana Gale DCP- Discharge Planning Updated by [email or web address]: Christiana Gale on 11/18/18 9:[address] Patient Name: TERA GREEN Admission Status: ER Accout number: [id number] Admission Date: 11-12-2018 : 1955 Admission Diagnosis:UNSPECIFIED ABDOMINAL PAIN Attending: SHLOMO DELEON Current LOS: 6 Anticipated DC Date: Planned Disposition: Physical Therapy Aid Care [facility] Primary Insurance: MEDICARE A & B Discharge Planning Comments: CM consulted to see if [facility] would take pt back today. I called and Cici stated they would but DON would prefer not to until Tuesday because she (Cici) did not know how to do an admission. CM sees no reason to hold pt . Bottom Polisher: Christiana Gale DCP- Discharge Planning Updated by [email or web address]: Jaylyn Genao on 11/15/18 5:[address] Late Entry 1000 CM to patient's bedside to speak with the patient regarding discharge planning. He was very sedated. CM spoke with the primary nurse. Patient had been sedated with Ativan for tremors and restlessness. Revisited this afternoon. He is arousable but CM unable to discuss dcp. TC to [facility]. Spoke w/ Trish. 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 They are expecting him to return at discharge. Clinical update faxed as per request. Clinical faxed to [phone]. CM to follow to assist with discharge planning. [facility] contact phone number- [phone]. Last DP export: 11/18/18 9:49 a Patient Name: TERA GREEN Page 43284 at 1356 All edits/amendments must be made on the electronic document DICTATION DATE: 11/18/18 1351 BOTTOM POLISHER: CELESTINA 11/18/18 1354 RPT#: [id number] DC DATE:11/18/18 STATUS: DIS IN [facility] [address] [place] [address] END OF REPORT
--- NOTE | 2018-11-20 08:04 | MORECARE ---
CASE MANAGEMENT DISCHARGE SUMMARY PATIENT: TERA GREEN UNIT: [id number] ADM DATE: 11/12/18 AGE: 63 : 53 SEX: M ROOM/BED: D.2103 AUTHOR: KAJAL CROSS PHYSICIAN: REFERRING PHYSICIAN: SHLOMO DELEON MD DATE OF SERVICE: 11/20/18 Discharge Plan Patient Name: TERA GREEN Facility[facility]:[place] : 1955 Planned Disposition: Nursing Facility [facility] Anticipated Discharge Date: 11/18/18 Discharge Date: 11/18/2018 Expected LOS: 6 Initial Reviewer: [email or web address] Initial Review Date: 11/12/2018 Generated: 11/20/18 9:03 am Comments DCP- Discharge Planning Updated by [id number]: Christiana Gale on 11/18/18 12:[address] Patient Name: TERA GREEN Admission Status: ER Accout number: [id number] Admission Date: 11-12-2018 : 1955 Admission Diagnosis:UNSPECIFIED ABDOMINAL PAIN Attending: SHLOMO DELEON Current LOS: 6 Anticipated DC Date: Planned Disposition: Director Of Program Management Care [facility] Primary Insurance: MEDICARE A & B Discharge Planning Comments: CM CALLED [facility] TO LTC BED TO NOTIFY OF DC. THEY STATED THEY BEV TECHNICAL DELIVERY MANAGER AROUND 1 PM TODAY Molded Goods Operator: Christiana Gale DCP- Discharge Planning Updated by [id number]: Christiana Gale on 11/18/18 9:[address] Patient Name: TERA GREEN Admission Status: ER Accout number: [id number] Admission Date: 11-12-2018 : 1955 Admission Diagnosis:UNSPECIFIED ABDOMINAL PAIN Attending: SHLOMO DELEON Current LOS: 6 Anticipated DC Date: Planned Disposition: Prison Care [facility] Primary Insurance: MEDICARE A & B Discharge Planning Comments: CM consulted to see if [facility] would take pt back today. I called and Cici stated they would but DON would prefer not to until Tuesday because she (Cici) did not know how to do an admission. CM sees no reason to hold pt . Molded Goods Operator: Christiana Gale DCP- Discharge Planning Updated by [email or web address]: Jaylyn Genao on 11/15/18 5:[address] Late Entry 1000 CM to patient's bedside to speak with the patient regarding discharge planning. He was very sedated. CM spoke with the primary nurse. Patient had been sedated with Ativan for tremors and restlessness. Revisited this afternoon. He is arousable but CM unable to discuss dcp. TC to [facility]. Spoke w/ Trish. She stated the patient is in half-way care. They are expecting him to return at discharge. Clinical update faxed as per request. Clinical faxed to [phone]. CM to follow to assist with discharge planning. [facility] contact phone number- [phone]. Last DP export: 11/18/18 12:56 p Patient Name: TERA GREEN Page 39785 at 0804 All edits/amendments must be made on the electronic document DICTATION DATE: 11/20/18802 NICKEL OPERATOR: CELESTINA 11/20/18802 RPT#: [id number] DC DATE:11/18/18 STATUS: DIS IN [facility] [address] [place] [address] END OF REPORT
== END 2018-11-18 13:34 | DRG 682 ==
LOC: D.ER 14:39 → D.M2 16:46
PROVIDERS: Emergency Medicine; Family Medicine; ADMIT Internal Medicine Nephrology; ATTEND Internal Medicine Nephrology
DX: N17.9 Acute kidney failure, unspecified (principal); A41.9 Sepsis, unspecified organism; I50.31 Acute diastolic (congestive) heart failure; F10.27 Alcohol dependence with alcohol-induced persisting dementia; E83.52 Hypercalcemia; N18.9 Chronic kidney disease, unspecified; J44.9 Chronic obstructive pulmonary disease, unspecified; D64.9 Anemia, unspecified; E03.9 Hypothyroidism, unspecified

== ENCOUNTER 2019-11-27 15:20 | Inpatient (IN) | payer MEDICARE ==
[2019-11-27] VITALS (8 sets, daily range): BP systolic 113–181; BP diastolic 66–100; BMI 43.0
[~2019-11-27] VITALS: Ht 180.3 cm; Wt 101.2 kg
[~2019-11-27 15:20] MED LIST changes: +COLACE100 MG PO; +HYDROCODON-ACE1 EAC2 PO; +K-TAB10 MEQ PO; +LEXAPRO20 MG PO; +LIPITOR40 MG PO; +MAG-OX 400 MG400 MG PO; +MEGACE ES625 MG/5 M PO; +RANITIDINE HCL150 M1 PO; +ROCALTROL0.5 MCG PO; +VITAMIN D10000 UNI1 PO; +ZOFRAN ODT4 MG/UDTAB PO
[2019-11-27] MEDS ORDERED: FUROSEMIDE10 MG/M1 IV (15:52)
[2019-11-27] MEDS ORDERED: OMEPRAZOLE20 M1 PO (15:53)
[2019-11-27] MEDS ORDERED: FUROSEMIDE20 MG PO (15:53)
[2019-11-27] MEDS ORDERED: FLOMAX0.4 MG PO (15:53)
[2019-11-27] MEDS ORDERED: ULTRAM50 MG PO (15:54)
[2019-11-27] MEDS ORDERED: VENTOLIN HFA [SP8 GM INH (15:54)
[2019-11-27 16:02] LABS: BASOPHILS 0.4 % (0-2); EOSINOPHILS 0.2 % (0-7); HEMATOCRIT 32.7 % (42.0-54.0); IMMATURE GRANULOCYTES 0.1 % (0-5); LYMPHOCYTES 7.6 % (15-50); MCHC 30.6 g/dL (31.0-37.0); MCV 84.9 fL (80.0-100.0); MEAN PLATELET VOLUME 9.8 fL (7.4-10.4); MONOCYTES 11.2 % (2-11); NEUTROPHILS 80.5 % (40-80); RBC 3.85 10x6/uL (4.20-6.10); RDW 18.6 % (11.5-14.5); WBC 8.2 10x3/uL (4.8-10.8)
[2019-11-27 16:15] LABS: PLATELET COUNT 169 10x3/uL (130-400)
[2019-11-27 16:16] LABS: CARBON DIOXIDE 31.9 mmol/L (21.0-32.0); CHLORIDE - SERUM 97 mmol/L (98-107); CREATININE - SERUM 2.4 mg/dL (0.6-1.3); POTASSIUM - SERUM 4.2 mmol/L (3.5-5.1); SODIUM 138 mmol/L (136-145); UREA NITROGEN 28 mg/dL (7-18); eGFR NON AFRICAN AMERICAN 29 mL/min (90-120)
[2019-11-27 16:19] LABS: INR 1.47 (0.85-1.17); PROTIME 17.7 SECONDS (11.6-15.0)
[2019-11-27 16:20] LABS: APTT 36.5 SECONDS (22.8-39.4)
[2019-11-27 16:40] LABS: ALBUMIN 2.8 g/dL (3.4-5.0); ALKALINE PHOSPHATASE 131 U/L (30-120); ALT (SGPT) 16 U/L (10-68); C-REACTIVE PROTEIN 10.9 mg/dL (0.0-0.9); CKMB 2.1 U/L (0.0-3.6); FERRITIN 107 ng/mL (3-244); MAGNESIUM - SERUM 1.5 mg/dL (1.8-2.4); PROTEIN - SERUM 7.5 g/dL (6.4-8.2)
--- NOTE | 2019-11-27 16:49 | NUR ---
PT STATES HE RECEIVED NTG SPRAY X 1 PER EMS. REPORT FEELING BETTER AFTER 2ND NTG TAB. STATES PAIN IS ALMOST GONE AND HE IS GETTING SLEEPY. RATES PAIN 1-2/10.
[2019-11-27 17:26] LABS: CALC OSMOLALITY 284 mosm/kg (275-300); GLUCOSE 150 mg/dL (74-106)
[2019-11-27 17:31] LABS: CALCIUM < 5.0 mg/dL (8.5-10.1); CREATINE KINASE 903 UL (21-232)
--- NOTE | 2019-11-27 17:31 | NUR ---
ERP INFORMED OF LOW CA OF 4.5.
[2019-11-27 17:33] LABS: TROPONIN-I 0.084 ng/mL (0.000-0.060)
--- NOTE | 2019-11-27 17:33 | NUR ---
ERP INFORMED OF TROP OF 0.084 AND CK OF 903
--- NOTE | 2019-11-27 19:12 | NUR ---
REPORT TO VEE EDWARD
--- NOTE | 2019-11-27 20:22 | NUR ---
STOP TIME MAG SULFATE AT THIS TIME 2021
--- NOTE | 2019-11-27 20:50 | NUR ---
PT INCONTINENT OF URINE AND BOWEL. AT THIS TIME, DANICA CARE AND LINEN CHANGE PROVIDED. PT REPOSITIONED IN BED. DR. AGUILERA AT BEDSIDE.
[2019-11-27] MEDS ORDERED: ROCALTROL0.25 MCG PO (21:45)
[2019-11-27] MEDS ORDERED: ROCALTROL0.5 MCG PO (21:46)
[2019-11-27] MEDS ORDERED: TUMS X-STR300 MG PO (21:48)
[2019-11-27] MEDS ORDERED: NEURONTIN 300300 MG PO (21:49)
[2019-11-27 23:10] LABS: CKMB 2.2 U/L (0.0-3.6); CREATINE KINASE 972 UL (21-232)
[2019-11-27 23:11] LABS: TROPONIN-I 0.079 ng/mL (0.000-0.060)
[2019-11-28 04:00] VITALS: BP 136/65
[2019-11-28 05:46] LABS: % SATURATION 11 % (15-55); IRON 34 ug/dl (35-150); TOTAL IRON BIND CAPACITY 290 ug/dl (260-445); UNSAT IRON BIND CAPACITY 256 ug/dl (150-375)
[2019-11-28 06:15] LABS: CKMB 2.4 U/L (0.0-3.6)
[2019-11-28 06:16] LABS: CREATINE KINASE 1103 UL (21-232); TROPONIN-I 0.064 ng/mL (0.000-0.060)
[2019-11-28 09:00] VITALS: BP 155/79
[2019-11-28 10:39] LABS: CKMB 2.3 U/L (0.0-3.6)
[2019-11-28 10:40] LABS: CREATINE KINASE 1073 UL (21-232); TROPONIN-I 0.067 ng/mL (0.000-0.060)
[2019-11-28 11:00] VITALS: BP 99/76
[2019-11-28 11:19] LABS: BASOPHILS 0.5 % (0-2); EOSINOPHILS 1.1 % (0-7); HEMATOCRIT 33.7 % (42.0-54.0); HEMOGLOBIN 10.2 g/dL (13.5-17.5); IMMATURE GRANULOCYTES 0.2 % (0-5); LYMPHOCYTES 15.2 % (15-50); MCH 26.1 pg (26.0-34.0); MCHC 30.3 g/dL (31.0-37.0); MCV 86.2 fL (80.0-100.0); MEAN PLATELET VOLUME 10.4 fL (7.4-10.4); PLATELET COUNT 181 10x3/uL (130-400); RBC 3.91 10x6/uL (4.20-6.10); RDW 18.5 % (11.5-14.5); WBC 8.4 10x3/uL (4.8-10.8)
[2019-11-28 11:19] LABS: ALBUMIN 3.1 g/dL (3.4-5.0); ALKALINE PHOSPHATASE 133 U/L (30-120); ALT (SGPT) 19 U/L (10-68); BILIRUBIN - TOTAL 1.78 mg/dL (0.2-1.3); CHLORIDE - SERUM 96 mmol/L (98-107); CREATININE - SERUM 2.5 mg/dL (0.6-1.3); POTASSIUM - SERUM 4.7 mmol/L (3.5-5.1); PROTEIN - SERUM 7.3 g/dL (6.4-8.2); SODIUM 137 mmol/L (136-145); UREA NITROGEN 33 mg/dL (7-18); eGFR NON AFRICAN AMERICAN 28 mL/min (90-120)
[2019-11-28 11:28] LABS: CALC OSMOLALITY 279 mosm/kg (275-300); CARBON DIOXIDE 23.2 mmol/L (21.0-32.0); GLUCOSE 83 mg/dL (74-106)
[2019-11-28 11:29] LABS: CALCIUM < 5.0 mg/dL (8.5-10.1)
--- NOTE | 2019-11-28 12:15 | NUR ---
PT SITTING IN CHAIR AT BEDSIDE REPORTS HE WAS INCONTINET OF URINE APPROX 30 MINUTES AGO. BLADDER SCAN COMPLETED PER ORDERS. 150 ML NOTED.
[2019-11-28 13:05] VITALS: BMI 31.6
--- NOTE | 2019-11-28 13:11 | NUR ---
URINE CUP AND NEW URINAL PROVIDED TO PT. ADVISED PT TO CALL FOR ASSIST FOR URINE SAMPLE TO BE COLLECTED.
--- NOTE | 2019-11-28 13:49 | NUR ---
UA AND CULTURE COLLECTED AND SEND TO LAB
[2019-11-28 15:00] VITALS: BP 113/68
[2019-11-28 15:27] LABS: BILIRUBIN NEGATIVE (NEGATIVE); GLUCOSE NEGATIVE (NEGATIVE); KETONE NEGATIVE (NEGATIVE); NITRITE NEGATIVE (NEGATIVE); UROBILINOGEN NORMAL (NORMAL)
--- NOTE | 2019-11-28 19:28 | NUR ---
RECEIVED BEDSIDE REPORT. PATIENT IS ALERT AND ORIENTED, RESTING COMFORTABLY IN BED. RESPIRATIONS ARE EVEN AND UNLABORED. NO S/S OF DISTRESS. NO C/O PAIN. CALL LIGHT WITHIN REACH. WILL CPOC.
[2019-11-28 20:48] VITALS: BP 119/68
[2019-11-29 00:48] VITALS: BP 125/74
[2019-11-29 06:00] VITALS: BP 120/71
[2019-11-29 06:46] LABS: BASOPHILS 0.5 % (0-2); EOSINOPHILS 0.1 % (0-7); HEMATOCRIT 34.2 % (42.0-54.0); HEMOGLOBIN 10.2 g/dL (13.5-17.5); IMMATURE GRANULOCYTES 0.2 % (0-5); LYMPHOCYTES 8.9 % (15-50); MCH 25.6 pg (26.0-34.0); MCHC 29.8 g/dL (31.0-37.0); MCV 85.9 fL (80.0-100.0); MEAN PLATELET VOLUME 10.2 fL (7.4-10.4); MONOCYTES 8.5 % (2-11); NEUTROPHILS 81.8 % (40-80); PLATELET COUNT 213 10x3/uL (130-400); RBC 3.98 10x6/uL (4.20-6.10); RDW 18.6 % (11.5-14.5); WBC 9.2 10x3/uL (4.8-10.8)
[2019-11-29 06:54] LABS: ALKALINE PHOSPHATASE 129 U/L (30-120); BILIRUBIN - TOTAL 1.93 mg/dL (0.2-1.3); CHLORIDE - SERUM 98 mmol/L (98-107); GLUCOSE 108 mg/dL (74-106); POTASSIUM - SERUM 5.2 mmol/L (3.5-5.1); PROTEIN - SERUM 7.4 g/dL (6.4-8.2); SODIUM 139 mmol/L (136-145)
[2019-11-29 07:24] LABS: ALT (SGPT) 40 U/L (10-68); CALC OSMOLALITY 290 mosm/kg (275-300); CARBON DIOXIDE 29.4 mmol/L (21.0-32.0); CREATININE - SERUM 3.4 mg/dL (0.6-1.3); UREA NITROGEN 45 mg/dL (7-18); eGFR NON AFRICAN AMERICAN 19 mL/min (90-120)
[2019-11-29 07:25] LABS: CALCIUM < 5.0 mg/dL (8.5-10.1)
[2019-11-29 08:11] VITALS: BP 126/68
[2019-11-29 12:13] VITALS: BP 119/66
[2019-11-29 12:39] LABS: T4 THYROXIN - FREE 1.01 ng/dL (0.76-1.46); THYROID STIMULATING HORMONE 5.14 uIU/mL (0.36-3.74)
[2019-11-29 16:05] VITALS: BP 119/70
[2019-11-29 17:12] VITALS: Ht 180.3 cm; Wt 101.2 kg
[2019-11-29 20:00] VITALS: BP 121/76
[2019-11-30] VITALS: BP 114/66
[2019-11-30 04:00] VITALS: BP 128/71
[2019-11-30 05:09] LABS: BASOPHILS 0.3 % (0-2); EOSINOPHILS 0.6 % (0-7); HEMATOCRIT 32.8 % (42.0-54.0); HEMOGLOBIN 9.7 g/dL (13.5-17.5); IMMATURE GRANULOCYTES 0.2 % (0-5); LYMPHOCYTES 10.3 % (15-50); MCH 25.6 pg (26.0-34.0); MCHC 29.6 g/dL (31.0-37.0); MCV 86.5 fL (80.0-100.0); MONOCYTES 9.8 % (2-11); NEUTROPHILS 78.8 % (40-80); PLATELET COUNT 200 10x3/uL (130-400); RBC 3.79 10x6/uL (4.20-6.10); RDW 18.9 % (11.5-14.5); WBC 9.3 10x3/uL (4.8-10.8)
[2019-11-30 05:50] LABS: ALKALINE PHOSPHATASE 114 U/L (30-120); ALT (SGPT) 40 U/L (10-68); CALC OSMOLALITY 284 mosm/kg (275-300); CARBON DIOXIDE 27.8 mmol/L (21.0-32.0); CHLORIDE - SERUM 93 mmol/L (98-107); GLUCOSE 84 mg/dL (74-106); PROTEIN - SERUM 7.6 g/dL (6.4-8.2); SODIUM 135 mmol/L (136-145); UREA NITROGEN 56 mg/dL (7-18); eGFR NON AFRICAN AMERICAN 14 mL/min (90-120)
[2019-11-30 06:10] LABS: CALCIUM < 5.0 mg/dL (8.5-10.1); CREATININE - SERUM 4.4 mg/dL (0.6-1.3); POTASSIUM - SERUM 4.3 mmol/L (3.5-5.1)
[2019-11-30 10:36] VITALS: BP 124/72
--- NOTE | 2019-11-30 13:45 | NUR ---
Nutrition Follow-up: Pt unavailable at time of visit this AM. Per record, pt noted to have eaten 100% of breakfast this AM. Noted pt with overall poor prognosis. Diet: Renal, Dental Soft PO intake: 44% avg x 4 meals Wt: 218# (11/29); 220.4# (11/27) Labs noted: Na 135, Ca <5.0, Alb 3.0 Meds noted: Tums, Folate, Calcitriol, Protonix, Colace, Zofran, electrolyte protocol -Encourage PO intake and honor food preferences within diet restrictions. -Offer Nepro with meals. -Monitor wt; noted daily wts ordered. -RD following.
[2019-11-30 15:48] VITALS: BP 131/68
--- NOTE | 2019-11-30 20:00 | NUR ---
REPORT RECIEVED AND INITIAL ROUNDS COMPLETED. CALL LIGHT IN REACH.
[2019-11-30 20:30] VITALS: BP 130/67
--- NOTE | 2019-11-30 22:25 | NUR ---
ORAL MEDICATIONS GIVEN. PT IVF STOPPED SINCE PATIENT SAYING IV TO LFA IS HURTING. WILL ATTEMPT RESITE.
[2019-12-01 00:26] VITALS: BP 118/67
[2019-12-01 04:30] VITALS: BP 138/78
[2019-12-01 05:51] LABS: BASOPHILS 0.3 % (0-2); EOSINOPHILS 1.1 % (0-7); HEMATOCRIT 34.5 % (42.0-54.0); HEMOGLOBIN 10.4 g/dL (13.5-17.5); IMMATURE GRANULOCYTES 0.2 % (0-5); LYMPHOCYTES 10.6 % (15-50); MCH 26.1 pg (26.0-34.0); MCHC 30.1 g/dL (31.0-37.0); MCV 86.5 fL (80.0-100.0); MEAN PLATELET VOLUME 10.8 fL (7.4-10.4); MONOCYTES 8.7 % (2-11); NEUTROPHILS 79.1 % (40-80); RBC 3.99 10x6/uL (4.20-6.10); RDW 18.8 % (11.5-14.5)
[2019-12-01 05:57] LABS: ALBUMIN 2.8 g/dL (3.4-5.0); ANION GAP 15.8 mmol/L (8-16); BILIRUBIN - TOTAL 1.75 mg/dL (0.2-1.3); C-REACTIVE PROTEIN 34.9 mg/dL (0.0-0.9); CREATININE - SERUM 4.2 mg/dL (0.6-1.3); POTASSIUM - SERUM 3.8 mmol/L (3.5-5.1); PROTEIN - SERUM 7.5 g/dL (6.4-8.2); VANCOMYCIN - RANDOM 18.7 ug/mL (10.0-20.0)
[2019-12-01 05:59] LABS: PLATELET COUNT 258 10x3/uL (130-400)
[2019-12-01 06:12] LABS: CALCIUM 4.9 mg/dL (8.5-10.1)
[2019-12-01 10:06] VITALS: BP 114/73
[2019-12-01 13:12] VITALS: BP 113/60
[2019-12-01 16:31] LABS: ERYTHROCYTE SEDIMENTATION RATE 26 mm/hr (0-20)
[2019-12-01 17:26] VITALS: BP 153/79
[2019-12-01 20:30] VITALS: BP 131/69
[2019-12-02 00:55] VITALS: BP 129/67
[2019-12-02 04:30] VITALS: BP 108/75
[2019-12-02 06:25] LABS: BASOPHILS 0.4 % (0-2); EOSINOPHILS 1.8 % (0-7); HEMATOCRIT 33.1 % (42.0-54.0); IMMATURE GRANULOCYTES 0.1 % (0-5); LYMPHOCYTES 9.2 % (15-50); MCH 26.2 pg (26.0-34.0); MCHC 30.2 g/dL (31.0-37.0); MCV 86.9 fL (80.0-100.0); MEAN PLATELET VOLUME 10.1 fL (7.4-10.4); MONOCYTES 7.7 % (2-11); NEUTROPHILS 80.8 % (40-80); PLATELET COUNT 249 10x3/uL (130-400); RBC 3.81 10x6/uL (4.20-6.10); WBC 6.8 10x3/uL (4.8-10.8)
[2019-12-02 06:54] LABS: ALBUMIN 2.6 g/dL (3.4-5.0); ALKALINE PHOSPHATASE 118 U/L (30-120); ALT (SGPT) 35 U/L (10-68); BILIRUBIN - TOTAL 1.47 mg/dL (0.2-1.3); CALC OSMOLALITY 287 mosm/kg (275-300); CARBON DIOXIDE 29.5 mmol/L (21.0-32.0); CHLORIDE - SERUM 95 mmol/L (98-107); CREATININE - SERUM 3.5 mg/dL (0.6-1.3); GLUCOSE 98 mg/dL (74-106); POTASSIUM - SERUM 3.1 mmol/L (3.5-5.1); PROTEIN - SERUM 7.2 g/dL (6.4-8.2); SODIUM 136 mmol/L (136-145); UREA NITROGEN 58 mg/dL (7-18); VANCOMYCIN - RANDOM 11.9 ug/mL (10.0-20.0); eGFR NON AFRICAN AMERICAN 19 mL/min (90-120)
[2019-12-02 07:08] LABS: CALCIUM < 5.0 mg/dL (8.5-10.1)
[2019-12-02 10:01] VITALS: BP 133/73
[2019-12-02 14:10] VITALS: BP 136/67
[2019-12-02 18:22] VITALS: BP 139/75
--- NOTE | 2019-12-02 19:45 | NUR ---
RECIEVED UP IN BED WITH EYES OPEN AND TV ON. ALERT AND ORIENTED X4. UP WITH ASSIST. O2@ 2LITERS PER N/C. IV TO LT FA WITH D5LR. TELEMETRY IN PLACE. DENIES ANY NEES AT THIS TIME.
[2019-12-02 20:30] VITALS: BP 125/60
[2019-12-03 00:17] VITALS: BP 136/79
[2019-12-03 04:30] VITALS: BP 130/66
[2019-12-03 05:46] LABS: BASOPHILS 0.3 % (0-2); EOSINOPHILS 0.9 % (0-7); HEMOGLOBIN 9.9 g/dL (13.5-17.5); IMMATURE GRANULOCYTES 0.5 % (0-5); LYMPHOCYTES 7.4 % (15-50); MCH 26.1 pg (26.0-34.0); MCV 86.8 fL (80.0-100.0); NEUTROPHILS 82.9 % (40-80); PLATELET COUNT 253 10x3/uL (130-400); RDW 19.1 % (11.5-14.5); WBC 6.6 10x3/uL (4.8-10.8)
[2019-12-03 06:22] LABS: ALBUMIN 2.6 g/dL (3.4-5.0); BILIRUBIN - TOTAL 1.32 mg/dL (0.2-1.3); CARBON DIOXIDE 32.6 mmol/L (21.0-32.0); PROTEIN - SERUM 6.8 g/dL (6.4-8.2); VANCOMYCIN - RANDOM 16.2 ug/mL (10.0-20.0)
[2019-12-03 06:26] LABS: CREATININE - SERUM 2.6 mg/dL (0.6-1.3)
[2019-12-03 06:28] LABS: ANION GAP 10.2 mmol/L (8-16); CALCIUM 5.1 mg/dL (8.5-10.1); POTASSIUM - SERUM 3.8 mmol/L (3.5-5.1)
[2019-12-03 09:00] VITALS: BP 132/72
[2019-12-03 11:00] VITALS: BP 126/64
[2019-12-03 15:00] VITALS: BP 132/62
--- NOTE | 2019-12-03 15:01 | MORECARE ---
CASE MANAGEMENT DISCHARGE SUMMARY PATIENT: TREA GREEN UNIT: [id number] ADM DATE: 11/28/19 AGE: 64 : 53 SEX: M ROOM/BED: D.2116 AUTHOR: KAJAL CROSS PHYSICIAN: REFERRING PHYSICIAN: DEXTER AGUILERA MD DATE OF SERVICE: 12/03/19 Discharge Plan Patient Name: TERA GREEN [facility] [facility] 1955 [facility] Facility Anticipated Discharge Date: Discharge Date: Expected LOS: Initial Reviewer: [email or web address] Initial Review Date: 11/27/2019 Generated: 12/03/19 4:00 pm Comments DCP- Discharge Planning Updated by [id number]: Katie Marinelli on 12/03/19 1:[address] CM met with patient regarding DC plans. PCP: Dr. Cisneros. Pharmacy: [facility]. DME: lesvia sanchez. Emergency contact: Teressa Swanson (sister) [phone]. Residence: [facility] in a LT bed. Plan is to return to [place]. Discussed HHS (states no home), Rehab, or SNF. CM will follow/ assist with DC needs/plans PRN. External Providers External Provider: [facility] Next Contact Date: Service Request Date: Service Type: Resolution: Reviewer: Comments: Patient Name: TERA GREEN Page [phone] at 1501 All edits/amendments must be made on the electronic document DICTATION DATE: 12/03/19 1500 SERVICE LEARNING COORDINATOR: DM 12/03/19 1500 RPT#: [id number] DC DATE: STATUS: ADM IN [facility] [address] [place] [address] END OF REPORT
--- NOTE | 2019-12-03 15:09 | MORECARE ---
CASE MANAGEMENT DISCHARGE SUMMARY PATIENT: TERA GREEN UNIT: [id number] ADM DATE: 11/28/19 AGE: 64 : 53 SEX: M ROOM/BED: D.2116 AUTHOR: TAY,DOC PHYSICIAN: REFERRING PHYSICIAN: DEXTER AGUILERA MD DATE OF SERVICE: 12/03/19 Discharge Plan Patient Name: TERA GREEN Facility: [facility]:[place] : 1955 Planned Disposition: [facility] Facility Anticipated Discharge Date: Discharge Date: Expected LOS: Initial Reviewer: [email or web address] Initial Review Date: 11/27/2019 Generated: 12/03/19 4:09 pm Comments DCP- Discharge Planning Updated by [email or web address]: Katie Marinelli on 12/03/19 1:[address] CM met with patient regarding DC plans. PCP: Dr. Cisneros. Pharmacy: [facility]. DME: lesvia sanchez. Emergency contact: Teressa Swanson (sister) [phone]. Residence: [facility] in a LT bed. Plan is to return to [facility]. Discussed HHS (states no home), Rehab, or SNF. CM will follow/ assist with DC needs/plans PRN. DCPIA - Discharge Planning Initial Assessment Updated by [id number]: Katie Marinelli on 12/03/19 3:06 pm * Is the patient Alert and Oriented? Yes * How many steps to enter\exit or inside your home? * PCP Dr. Cisneros * Pharmacy [facility] * Preadmission Environment [employer] Long Term * Facility Name [facility] * ADLs Partial Dependent * Partial ADLs (Assistance needed) Ambulation Bathing Medication Management * Equipment Cane Rolling Walker * Other Equipment Other supplied by nursing facility * List name and contact numbers for known caregivers / representatives who currently or will assist patient after discharge: Teressa swanson (sister( [phone] * Verbal permission to speak to the caregivers and representatives has been obtained from the patient. Yes * Community resources currently utilized None * Please name any agencies selected above. [facility] * Additional services required to return to the preadmission environment? No * Can the patient safely return to the preadmission environment? Yes * Has this patient been hospitalized within the prior 30 days at any hospital? Yes Last DP export: 12/03/19 2:00 p Patient Name: TERA GREEN Page 41226 at 1509 All edits/amendments must be made on the electronic document DICTATION DATE: 12/03/19 [address] SHUT[address]LE R[address]TE VEHICLE OPERATOR: CELESTINA 12/03/19 1509 RPT#: [id number] DC DATE: STATUS: ADM IN [facility] [address] [place] [address] END OF REPORT
--- NOTE | 2019-12-03 19:00 | NUR ---
RECEIVED BEDSIDE REPORT. PATIENT IS ALERT AND ORIENTED, RESTING COMFORTABLY IN BED. RESPIRATIONS ARE EVEN AND UNLABORED. NO S/S OF DISTRESS. NO C/OPAIN. CALL LIGHT WITHIN REACH. WILL CPOC.
--- NOTE | 2019-12-03 19:00 | NUR ---
RECEIVED PT IN BED EYES CLOSED RESP UNLABORED SKIN W/D NAD NOTED
[2019-12-03 21:21] VITALS: BP 131/61
[2019-12-04 01:04] VITALS: BP 140/75
--- NOTE | 2019-12-04 02:00 | NUR ---
PATIENT CALLED PHARMACEUTICAL ANALYST LIGHT. PATIENT INCONTINENT OF URINE. COMPLETE LINEN CHANGE.
[2019-12-04 04:00] VITALS: BP 130/69
[2019-12-04 05:56] LABS: BASOPHILS 0.5 % (0-2); IMMATURE GRANULOCYTES 0.3 % (0-5); LYMPHOCYTES 7.1 % (15-50); MCH 26.7 pg (26.0-34.0); MCHC 31.3 g/dL (31.0-37.0); MCV 85.6 fL (80.0-100.0); MEAN PLATELET VOLUME 9.6 fL (7.4-10.4); MONOCYTES 6.4 % (2-11); NEUTROPHILS 84.7 % (40-80); PLATELET COUNT 235 10x3/uL (130-400); RBC 3.74 10x6/uL (4.20-6.10); RDW 19.4 % (11.5-14.5)
[2019-12-04 06:20] LABS: ALBUMIN 2.6 g/dL (3.4-5.0); ANION GAP 11.1 mmol/L (8-16); BILIRUBIN - TOTAL 1.43 mg/dL (0.2-1.3); CARBON DIOXIDE 28.6 mmol/L (21.0-32.0); POTASSIUM - SERUM 3.7 mmol/L (3.5-5.1); PROTEIN - SERUM 6.8 g/dL (6.4-8.2)
[2019-12-04 06:45] LABS: CALCIUM 5.4 mg/dL (8.5-10.1)
[2019-12-04 09:00] VITALS: BP 133/76
[2019-12-04 11:00] VITALS: BP 123/58
--- NOTE | 2019-12-04 13:23 | NUR ---
Nutrition Follow-up: Eating well overall. Diet: Renal, Dental Soft PO intake: 76% avg x 7 meals Wt: 223# (12/02); 220.4# (11/27) Labs noted: Na 133, Ca 5.4, Alb 2.6 Meds noted: Lasix, Tums, Folate, Calcitriol, Colace, electrolyte protocol -Encourage PO intake and honor food preferences within diet restrictions. -Monitor wt; noted daily wts ordered. -RD following.
[2019-12-04 15:00] VITALS: BP 114/56
[2019-12-04 20:00] VITALS: BP 121/58
--- NOTE | 2019-12-04 20:19 | NUR ---
PATIENT GOT UP AND HAD A BOWEL MOVEMENT. PATIENT IS CONFUSED TO TIME AND EVENTS. HE IS NOW RESTING COMFORTABLY IN BED, WITH CALL LIGHT IN REACH.
[2019-12-05] VITALS: BP 131/56
[2019-12-05 04:00] VITALS: BP 139/72
--- NOTE | 2019-12-05 04:45 | NUR ---
PATIENT IS ASKING FOR PAIN MEDICATIONS FOR GENERAL PAIN. HE RECEIVED NORCO 5/325. PATIENT IS STILL CONFUSED TO TIME AND SITUATION. WE WILL MONITOR IS MENTATION AND PAIN.
[2019-12-05 06:20] LABS: BASOPHILS 0.5 % (0-2); EOSINOPHILS 0.7 % (0-7); HEMATOCRIT 32.3 % (42.0-54.0); HEMOGLOBIN 9.9 g/dL (13.5-17.5); IMMATURE GRANULOCYTES 0.5 % (0-5); LYMPHOCYTES 13.4 % (15-50); MCH 26.5 pg (26.0-34.0); MCHC 30.7 g/dL (31.0-37.0); MCV 86.6 fL (80.0-100.0); MEAN PLATELET VOLUME 9.7 fL (7.4-10.4); MONOCYTES 7.9 % (2-11); PLATELET COUNT 220 10x3/uL (130-400); RBC 3.73 10x6/uL (4.20-6.10); RDW 20.1 % (11.5-14.5); WBC 7.3 10x3/uL (4.8-10.8)
[2019-12-05 06:47] LABS: ALBUMIN 2.5 g/dL (3.4-5.0); ANION GAP 12.5 mmol/L (8-16); BILIRUBIN - TOTAL 1.47 mg/dL (0.2-1.3); CREATININE - SERUM 1.7 mg/dL (0.6-1.3); POTASSIUM - SERUM 3.5 mmol/L (3.5-5.1); PROTEIN - SERUM 6.9 g/dL (6.4-8.2); VANCOMYCIN - RANDOM 15.6 ug/mL (10.0-20.0)
[2019-12-05 06:51] LABS: CALCIUM 5.4 mg/dL (8.5-10.1)
--- NOTE | 2019-12-05 09:23 | NUR ---
IV RESTARTED TO LEFT FA WITH 22 GAUGE CATH X 1 STICK AND FLUSHED WITH NS. LINE IS PATENT.
[2019-12-05 09:40] VITALS: BP 133/64
[2019-12-05 18:56] VITALS: BP 141/76
--- NOTE | 2019-12-05 19:10 | NUR ---
PATIENT IS RESTING COMFORTABLY IN BED. HE IS PLEASANTLY CONFUSED. CALL LIGHT IS WITHIN REACH.
[2019-12-05 20:00] VITALS: BP 133/73
[2019-12-06] VITALS: BP 120/67
[2019-12-06 04:00] VITALS: BP 144/68
--- NOTE | 2019-12-06 05:17 | NUR ---
PATIENT IS NOW SLEEPING COMFORTABLY IN BED. HE IS CONFUSED TO TIME. HE HAS HAD NORCO TWICE FOR GENERAL PAIN. PATIENT IS SUPPOSED TO DISCHARGE TODAY.
[2019-12-06 06:51] LABS: ALBUMIN 2.6 g/dL (3.4-5.0); ANION GAP 9.9 mmol/L (8-16); BILIRUBIN - TOTAL 1.34 mg/dL (0.2-1.3); CARBON DIOXIDE 31.6 mmol/L (21.0-32.0); CREATININE - SERUM 1.8 mg/dL (0.6-1.3); POTASSIUM - SERUM 3.5 mmol/L (3.5-5.1); PROTEIN - SERUM 7.3 g/dL (6.4-8.2); VANCOMYCIN - RANDOM 16.9 ug/mL (10.0-20.0)
[2019-12-06 06:53] LABS: CALCIUM 5.8 mg/dL (8.5-10.1)
[2019-12-06 08:28] LABS: BASOPHILS 0.5 % (0-2); EOSINOPHILS 1.8 % (0-7); HEMATOCRIT 33.9 % (42.0-54.0); HEMOGLOBIN 10.3 g/dL (13.5-17.5); IMMATURE GRANULOCYTES 0.2 % (0-5); LYMPHOCYTES 14.3 % (15-50); MCHC 30.4 g/dL (31.0-37.0); MCV 88.7 fL (80.0-100.0); MEAN PLATELET VOLUME 9.9 fL (7.4-10.4); MONOCYTES 7.7 % (2-11); NEUTROPHILS 75.5 % (40-80); PLATELET COUNT 228 10x3/uL (130-400); RBC 3.82 10x6/uL (4.20-6.10); RDW 20.5 % (11.5-14.5); WBC 8.3 10x3/uL (4.8-10.8)
[2019-12-06 09:46] VITALS: BP 140/73
--- NOTE | 2019-12-06 09:59 | NUR ---
IV AND TELEMETRY DCD. REPORT CALLED TO [facility] COKER. WILL CONT PLAN OF CARE.
--- NOTE | 2019-12-06 12:59 | MORECARE ---
CASE MANAGEMENT DISCHARGE SUMMARY PATIENT: BLANCA CAM UNIT: [id number] ADM DATE: 11/28/19 AGE: 64 : 53 SEX: M ROOM/BED: D.2116 AUTHOR: TAY,DOC PHYSICIAN: REFERRING PHYSICIAN: DEXTER AGUILERA MD DATE OF SERVICE: 12/06/19 Discharge Plan Patient Name: BLANCA CAM Facility: [facility]:[place] : 1955 Planned Disposition: Shelter Facility Anticipated Discharge Date: Discharge Date: Expected LOS: Initial Reviewer: [email or web address] Initial Review Date: 11/27/2019 Generated: 12/06/19 1:59 pm Comments DCP- Discharge Planning Updated by [id number]: Katie Marinelli on 12/06/19 11:[address] 12/04: Contacted [facility] physician representative for DC back to the facility. The facility could not accept on 12/04, due to transportation, so will picking machine operator helper 12/05 around 1230. 12/05: Patient is returning to [facility] to a LT bed via [place] van.. DCP- Discharge Planning Updated by [id number]: Katie Marinelli on 12/03/19 1:[address] CM met with patient regarding DC plans. PCP: Dr. Cisneros. Pharmacy: [facility]. DME: lesvia sanchez. Emergency contact: Teressa Swanson (sister) [phone]. Residence: [facility] in a LT bed. Plan is to return to [facility]. Discussed HHS (states no home), Rehab, or SNF. CM will follow/ assist with DC needs/plans PRN. DCPIA - Discharge Planning Initial Assessment Updated by [email or web address]: Katie Marinelli on 12/03/19 3:06 pm * Is the patient Alert and Oriented? Yes * How many steps to enter\exit or inside your home? * PCP Dr. Cisneros * Pharmacy [facility] * Preadmission Environment Residential Half-Way * Facility Name [facility] * ADLs Partial Dependent * Partial ADLs (Assistance needed) Ambulation Bathing Medication Management * Equipment Cane Rolling Walker * Other Equipment Other supplied by nursing facility * List name and contact numbers for known caregivers / representatives who currently or will assist patient after discharge: Teressa swanson (sister( [phone] * Verbal permission to speak to the caregivers and representatives has been obtained from the patient. Yes * Community resources currently utilized None * Please name any agencies selected above. [facility] [place] * Additional services required to return to the preadmission environment? No * Can the patient safely return to the preadmission environment? Yes * Has this patient been hospitalized within the prior 30 days at any hospital? Yes Coverage Notice Reviewer: [id number] Leydi Marinelli Notice Issued Date-Time: 12/03/2019 15:13 Notice Type: Patient Choice Letter Notice Delivered To: Patient Relationship to Patient: Self Toy Stuffer Name: Blanca Cam Delivery Method: HAND - Hand Delivered Alecia Days: Prior Verbal Notification: Recipient Understood Notice: Yes Recipient Signature: Yes Med Rec Note Co-signed by Attending: Coverage Notice Comment: DC IMM signed/given to patient. Original to chart. Reviewer: [email or web address] Leydi Marinelli Notice Issued Date-Time: 12/06/2019 12:58 Notice Type: IM Discharge Notice Notice Delivered To: Patient Relationship to Patient: Self Toy Stuffer Name: Blanca Stacy Delivery Method: HAND - Hand Delivered Alecia Days: Prior Verbal Notification: Recipient Understood Notice: Yes Recipient Signature: Yes Med Rec Note Co-signed by Attending: Coverage Notice Comment: DC IMM signed Last DP export: 12/03/19 2:09 p Patient Name: BLANCA CAM Page 96104 at 1259 All edits/amendments must be made on the electronic document DICTATION DATE: 12/06/19 1259 GRAIN PROCESSOR: CELESTINA 12/06/19 1259 RPT#: [id number] DC DATE: STATUS: ADM IN [facility] [address] [place] [address] END OF REPORT
--- NOTE | 2019-12-06 13:00 | NUR ---
ESCORTED TO [facility] BY W/C.
== END 2019-12-06 13:18 | DRG 280 ==
LOC: D.ER 15:20 → D.M2 19:12 → OBSVTIME 19:12 → D.M2 19:12
PROVIDERS: Family Medicine; Internal Medicine Nephrology; ADMIT Family Medicine; ATTEND Family Medicine
DX: I16.0 Hypertensive urgency (principal); I50.31 Acute diastolic (congestive) heart failure; I21.A1 Myocardial infarction type 2; I20.0 Unstable angina; N17.9 Acute kidney failure, unspecified; I44.2 Atrioventricular block, complete; E87.1 Hypo-osmolality and hyponatremia; E83.51 Hypocalcemia; D64.9 Anemia, unspecified; I71.4 Abdominal aortic aneurysm, without rupture; E78.5 Hyperlipidemia, unspecified; E03.9 Hypothyroidism, unspecified; J44.9 Chronic obstructive pulmonary disease, unspecified; I13.0 Hypertensive heart and chronic kidney disease with heart failure and stage 1 through stage 4 chronic kidney disease, or unspecified chronic kidney disease; N18.9 Chronic kidney disease, unspecified; I08.1 Rheumatic disorders of both mitral and tricuspid valves; D63.1 Anemia in chronic kidney disease; M25.572 Pain in left ankle and joints of left foot

== ENCOUNTER 2019-12-17 13:44 | Inpatient (IN) | payer MEDICARE ==
[2019-12-17] VITALS (8 sets, daily range): BP systolic 124–175; BP diastolic 61–96
[~2019-12-17] VITALS: Ht 177.8 cm; Wt 99.3 kg
[~2019-12-17 13:44] MED LIST changes: +ACETAMINOPHEN325 MG PO; +ALBUTEROL2.5 MG/3 M INH; +ATIVAN0.5 MG PO; +CALCIUM 500 +1 EAC3 PO; +FLOMAX0.4 MG PO; +FUROSEMIDE10 MG/M1 IV; +FUROSEMIDE20 MG PO; +LIPITOR20 MG PO; +LOVENOX40 MG/0.4 SC; +MIRALAX17 GM PO; +NEURONTIN 300300 MG PO; +NORCO-7.5 PO; +Nicoderm [PBKC] TRANSDERM; +OMEPRAZOLE20 M1 PO; +OSCAL D TABLET PO; +SYNTHROID50 MCG PO; +TUMS X-STR300 MG PO; +ULTRAM50 MG PO; +VENTOLIN HFA [SP8 GM INH; +VITAMIN B-1100 M1 PO; +levothyroxine
[2019-12-17] MEDS ORDERED: COLACE100 MG PO (13:55)
[2019-12-17] MEDS ORDERED: DURAGESIC1 EAC3 TOPICAL (13:56)
[2019-12-17] MEDS ORDERED: GABAPENTIN300 MG PO (13:58)
[2019-12-17] MEDS ORDERED: FUROSEMIDE20 MG PO (13:59)
[2019-12-17] MEDS ORDERED: LEXAPRO20 MG PO (14:00)
[2019-12-17] MEDS ORDERED: METOLAZONE5 MG PO (14:00)
[2019-12-17] MEDS ORDERED: MORPHINE SULFAT15 M4 PO (14:01)
[2019-12-17] MEDS ORDERED: HYDROCODON-ACE1 EAC2 PO (14:02)
[2019-12-17] MEDS ORDERED: OMEPRAZOLE40 MG PO (14:03)
[2019-12-17] MEDS ORDERED: FLOMAX0.4 MG PO (14:04)
[2019-12-17] MEDS ORDERED: SYNTHROID75 MCG PO (14:04)
[2019-12-17] MEDS ORDERED: ALBUTEROL SULF8.5 GM INH (14:05)
[2019-12-17] MEDS ORDERED: ULTRAM50 MG PO (14:06)
[2019-12-17] MEDS ORDERED: IPRAT-ALBUT 0.5-3 ML UPD (14:07)
[2019-12-17 14:42] LABS: HEMATOCRIT 37.7 % (42.0-54.0); LYMPHOCYTES 5.3 % (15-50); MCH 26.2 pg (26.0-34.0); MCHC 29.2 g/dL (31.0-37.0); MCV 89.8 fL (80.0-100.0); MEAN PLATELET VOLUME 10.3 fL (7.4-10.4); NEUTROPHILS 88.6 % (40-80); PLATELET COUNT 203 10x3/uL (130-400); RDW 21.4 % (11.5-14.5); WBC 13.8 10x3/uL (4.8-10.8)
--- NOTE | 2019-12-17 14:43 | NUR ---
URINE COLLECTED AND SENT TO LAB VIA TUBE SYSTEM.
[2019-12-17 14:50] LABS: APTT 39.6 SECONDS (22.8-39.4); INR 2.54 (0.85-1.17); PROTIME 26.9 SECONDS (11.6-15.0)
[2019-12-17 15:01] LABS: BILIRUBIN NEGATIVE (NEGATIVE); GLUCOSE NEGATIVE (NEGATIVE); KETONE NEGATIVE (NEGATIVE); NITRITE NEGATIVE (NEGATIVE); SPECIFIC GRAVITY 1.025 (1.005-1.020); UROBILINOGEN NORMAL (NORMAL)
[2019-12-17 15:08] LABS: BACTERIA FEW /hpf (NEGATIVE); RED CELLS - URINE 0-5 /hpf (0-5)
[2019-12-17 15:36] LABS: ALBUMIN 3.3 g/dL (3.4-5.0); BILIRUBIN - TOTAL 3.26 mg/dL (0.2-1.3); CARBON DIOXIDE 20.1 mmol/L (21.0-32.0); CREATININE - SERUM 4.5 mg/dL (0.6-1.3); MAGNESIUM - SERUM 1.8 mg/dL (1.8-2.4); PROTEIN - SERUM 7.8 g/dL (6.4-8.2)
[2019-12-17 15:40] LABS: ANION GAP 27.4 mmol/L (8-16)
[2019-12-17 15:56] LABS: POTASSIUM - SERUM 6.5 mmol/L (3.5-5.1); TROPONIN-I 0.09 ng/mL (0.000-0.060)
[2019-12-17 19:23] LABS: UDS - AMPHET NEGATIVE QUAL (NEGATIVE); UDS - BARB NEGATIVE QUAL (NEGATIVE); UDS - BENZO NEGATIVE QUAL (NEGATIVE); UDS - COCAINE NEGATIVE QUAL (NEGATIVE); UDS - OPIATE POSITIVE QUAL (NEGATIVE); UDS - PCP NEGATIVE QUAL (NEGATIVE); UDS - THC NEGATIVE QUAL (NEGATIVE)
[2019-12-17 20:34] LABS: CKMB 111.9 U/L (0.0-3.6)
[2019-12-17 20:35] LABS: CREATINE KINASE 2109 UL (21-232)
[2019-12-17 20:40] LABS: TROPONIN-I 0.136 ng/mL (0.000-0.060)
[2019-12-17 20:46] LABS: CARBON DIOXIDE 18.8 mmol/L (21.0-32.0); CREATININE - SERUM 4.5 mg/dL (0.6-1.3); MAGNESIUM - SERUM 1.8 mg/dL (1.8-2.4)
[2019-12-17 20:47] LABS: ANION GAP 27.6 mmol/L (8-16); POTASSIUM - SERUM 5.4 mmol/L (3.5-5.1)
[2019-12-17 20:48] LABS: CALCIUM 6.2 mg/dL (8.5-10.1)
--- NOTE | 2019-12-17 20:52 | NUR ---
DR BRAVO NOTIFED ABOUT LATIC OF 6.3, TROP OF 0.36, AND CA OF 6.2, WAS INFROMED TO CONT CURRENT TREATMENT AND WILL LET RENAL HANDLE ALL ABNORMAL CHEMISTRY.
--- NOTE | 2019-12-17 21:28 | NUR ---
PATIENT COMPLAINED OF SEVERE PAIN WITH THE WEEKS CATH, AND WAS URINATING AROUND IT. REMOVED AT THIS TIME.
--- NOTE | 2019-12-17 22:06 | NUR ---
DR GARLAND ON TELEPHONE. ADVISED TO CALL A CODE SEPSIS ON PT. ORDERS TAKEN FOR PT TO RECEIVE 30ML/KG OF FLUID. PT HAD RECEIVED 1000CC NS SINCE ARRIVAL. ORDER PLACED FOR 2000ML LACTATED RINGER BOLUS. CODE SEPSIS INITIATED.
--- NOTE | 2019-12-17 23:00 | NUR ---
pt arrived on unit via stretcher accompanied by er staff. patient transferred to icu bed and hooked up to icu monitors. pt complaining of intermittent pain in abdomen, unable to urinate at this time. difficulty with foleys in the er bladder scan performed at this time with 3 mls urine found. pt states he has pain in his chest, back, and legs also. pt has 4+ pitting edema of lower extremities, saT 97% ON NC ADMISSIONS ASSESSMENT, HISTORY, AND SUICIDE SCREENING COMPLETED AT THIS TIME. VSS CPOC
[2019-12-18] VITALS (25 sets, daily range): BP systolic 89–135; BP diastolic 48–88; Ht 177.8 cm; Wt 99.3 kg
[2019-12-18 01:26] LABS: CKMB 130.8 U/L (0.0-3.6); CREATINE KINASE 2803 UL (21-232); TROPONIN-I 0.232 ng/mL (0.000-0.060)
--- NOTE | 2019-12-18 01:54 | NUR ---
PT KEEPS TAKING 02 CANNULA OUT OF NOSE STATING "I NEED TO TAKE IT OFF TO EAT ICE"
--- NOTE | 2019-12-18 02:38 | NUR ---
REASSESSMENT COMPLETED SEE FLOWSHEET
[2019-12-18 08:08] LABS: HEMATOCRIT 38.5 % (42.0-54.0); HEMOGLOBIN 11.6 g/dL (13.5-17.5); LYMPHOCYTES 7.6 % (15-50); MCH 26.8 pg (26.0-34.0); MCHC 30.1 g/dL (31.0-37.0); MCV 88.9 fL (80.0-100.0); MEAN PLATELET VOLUME 10.1 fL (7.4-10.4); NEUTROPHILS 84.6 % (40-80); RBC 4.33 10x6/uL (4.20-6.10); RDW 21.7 % (11.5-14.5)
[2019-12-18 08:11] LABS: PLATELET COUNT 275 10x3/uL (130-400); WBC 18.2 10x3/uL (4.8-10.8)
[2019-12-18 08:52] LABS: ALBUMIN 3.1 g/dL (3.4-5.0); ALKALINE PHOSPHATASE 164 U/L (30-120); BILIRUBIN - TOTAL 3.02 mg/dL (0.2-1.3); CALC OSMOLALITY 284 mosm/kg (275-300); CHLORIDE - SERUM 98 mmol/L (98-107); CKMB 129.8 U/L (0.0-3.6); CREATININE - SERUM 5.1 mg/dL (0.6-1.3); GLUCOSE 108 mg/dL (74-106); MAGNESIUM - SERUM 1.9 mg/dL (1.8-2.4); PROTEIN - SERUM 7.3 g/dL (6.4-8.2); SODIUM 135 mmol/L (136-145); UREA NITROGEN 53 mg/dL (7-18); eGFR NON AFRICAN AMERICAN 12 mL/min (90-120)
[2019-12-18 08:55] LABS: ALT (SGPT) 1281 U/L (10-68); CARBON DIOXIDE 25.1 mmol/L (21.0-32.0); CREATINE KINASE 3228 UL (21-232); TROPONIN-I 0.255 ng/mL (0.000-0.060)
[2019-12-18 08:59] LABS: CALCIUM 6.1 mg/dL (8.5-10.1); POTASSIUM - SERUM 7.1 mmol/L (3.5-5.1)
--- NOTE | 2019-12-18 09:40 | NUR ---
CRITICAL LAB K+ 7.1 AND CA++ 6.1, NEW ORDERS GIVEN BY DR. ALBRECHT
[2019-12-18 12:00] LABS: ANION GAP 21.1 mmol/L (8-16); CARBON DIOXIDE 21.3 mmol/L (21.0-32.0); CREATININE - SERUM 5.2 mg/dL (0.6-1.3)
[2019-12-18 12:07] LABS: CALCIUM 6.1 mg/dL (8.5-10.1); POTASSIUM - SERUM 6.4 mmol/L (3.5-5.1)
--- NOTE | 2019-12-18 19:00 | NUR ---
SHIFT ASSESSMENT COMPLETED. PT CARE ASSUMED. MONITORS ON AND WORKING, VSS, BIPAP ON, WEEKS CATH NOTED. SEE FLOW SHEET FOR FURTHER DETAILS. WILL CONTINUE TO OBSERVE.
--- NOTE | 2019-12-18 21:00 | NUR ---
PCP AWARE OF DNR ORDERS, FAMILY AT BEDSIDE, MONITORS ON AND WORKING. WILL CONTINUE TO OBSERVE.
--- NOTE | 2019-12-18 23:50 | NUR ---
PT BECOMING INCREASINGLY AGITATED. SPOKE WITH DR JOSEFINA DELGADO'Luc ORDERS FOR PRN ATIVAN IV. FAMILY AT BEDSIDE, SPOKE WITH FAMILY NUMEROUS TIMES THROUGHOUT THE LAST FEW HOURS. MONITORS ON AND WORKING, VSS. WILL CONTINUE TO OSBERVE.
[2019-12-19] VITALS (10 sets, daily range): BP systolic 94–126; BP diastolic 7–65
--- NOTE | 2019-12-19 03:00 | NUR ---
PT LYING IN BED RESTING, NC ON, MONITORS ON AND WORKNG, VSS, FAMILY AT BEDSIDE, SEE FLOW SHEET FOR FURTHER DETIALS. WILL CONTINUE TO OBSERVE.
[2019-12-19 04:52] LABS: HEMATOCRIT 36.5 % (42.0-54.0); HEMOGLOBIN 10.9 g/dL (13.5-17.5); LYMPHOCYTES 4.7 % (15-50); MCH 26.9 pg (26.0-34.0); MCHC 29.9 g/dL (31.0-37.0); MCV 90.1 fL (80.0-100.0); MEAN PLATELET VOLUME 10.4 fL (7.4-10.4); NEUTROPHILS 89.3 % (40-80); PLATELET COUNT 251 10x3/uL (130-400); RBC 4.05 10x6/uL (4.20-6.10); RDW 21.8 % (11.5-14.5); WBC 13.6 10x3/uL (4.8-10.8)
[2019-12-19 05:01] LABS: ALBUMIN 3.2 g/dL (3.4-5.0); BILIRUBIN - TOTAL 3.62 mg/dL (0.2-1.3); CREATININE - SERUM 6.3 mg/dL (0.6-1.3); PROTEIN - SERUM 7.9 g/dL (6.4-8.2)
[2019-12-19 05:37] LABS: ANION GAP 16.7 mmol/L (8-16); CARBON DIOXIDE 27.5 mmol/L (21.0-32.0)
[2019-12-19 05:38] LABS: CALCIUM 5.5 mg/dL (8.5-10.1); POTASSIUM - SERUM 7.2 mmol/L (3.5-5.1)
--- NOTE | 2019-12-19 07:00 | NUR ---
REC'D REPORT AND RESUMED CARE, LETHARGIC, WITH SNORING RESPIRATIONS, VSS, NS INFUSING AT 50 CC/HR, WEEKS TO GRAVITY WITH NO DRAINAGE TO BAG, ASSESSMENT COMPLETED PER FLOWSHEET, SISTER AT BEDSIDE, AWAITING HOSPICE EVAL AND PLACEMENT, CALL LIGHT IN REACH, NO NEEDS AT THIS TIME
--- NOTE | 2019-12-19 08:08 | EC ---
PATIENT:TERA GREEN DATE OF SERVICE: 12/17/19 SEX: M MEDICAL RECORD: [id number] DATE OF : [birth year] LOCATION:[facility] D230 AGE OF PATIENT: 64 ADMISSION DATE: 12/17/19 REFERRING PHYSICIAN: INTERPRETING PHYSICIAN: ALEJANDRINA GOMEZ MD ECHOCARDIOGRAM REPORT ECHO CHARGES 5 ECHO LIMITED Date: 12/18/19 CLINICAL DIAGNOSIS: CHF ECHOCARDIOGRAPHIC MEASUREMENTS (adult normal given) AC root (d.<3.7cm) 0 cm LV Septum d (<1.2 cm> 0 cm Valve Excursion 0 cm LV Septum (systole) 0 cm Left Atria (s.<4.0cm> 0 cm LVPW d(<1.2cm) 0 cm RV (d.<2.3cm) 0 cm LVPW (sytole) 0 cm LV diastole(<5.6CM) 0 cm MV E-F(>70mm/sec) 0 cm LV systole 0 cm LVOT Diameter 0 cm MV exc.(>10mm) 0 cm Est.ejection fraction (50-75%) 0 % DOPPLER: LVIT cm/sec A 0 cm/sec E 0 cm/sec LA 0 cm/sec RVSP 38.0 mmHg LVOT 0 cm/sec AOP1/2T m/s Asc. Ao 0 cm/sec RVOT 0 cm/sec RA 0 cm/sec PA 0 cm/sec AV Gradient Peak 0 mmHg AV Mean 0 mmHg AV Area 0 cm MV Gradient Peak 0 mmHg MV Mean 0 mmHg MV Area 0 cm COMMENTS: 0 Aluminum Boat Inspector: Bello [facility] Ladies Suit Operator: 3 Dr. Philip TAPE# PACS Pericardial Effusion Y DATE OF SERVICE: 2D, color flow only. Grossly, LVH appears present. LV internal dimensions are normal. Wall motion is normal. EF is greater than or equal to 55%. Aortic valve appears tricuspid with good valve excursion. Mild AI. Left atrium appears normal. Mitral valve appears normal with mild MR. Right-sided chambers appear grossly normal. Mild TR. ECHOCARDIOGRAM REPORT [id number] TERA GREEN NTS:[id number] Voice Confirmation ID: [id number] DOCUMENT ID: [id number] ALEJANDRINA GOMEZ MD at 0808 CC: [id number] DICTATION DATE: 12/18/19 8229 COMMERCIAL DIRECTOR: 12/18/19 1813 ADM IN [facility] [address] [place] [id number]
--- NOTE | 2019-12-19 08:30 | NUR ---
MORNING MEDS GIVEN PER AUG FLOWSHEET
--- NOTE | 2019-12-19 08:54 | NUR ---
CALLED TO ROOM, REPOSITIONED PER REQUEST TO RIGHT SIDE
--- NOTE | 2019-12-19 10:56 | NUR ---
Nutrition follow-up: Diet: Renal PO intake ~50% of meals Labs reviewed Wt: 219# Pt with hospice eval ordered RDN following.
--- NOTE | 2019-12-19 11:00 | NUR ---
CHG BATH GIVEN, COVID -19 TEST DONE FOR PLACEMENT, AWAITING HSOPICE EVAL
--- NOTE | 2019-12-19 12:57 | NUR ---
SISTERS AT BEDSIDE, STATUS UPDATED, VOICES NEED TO HAVE VETERANS' COUNSELOR OR PREIST FOR LAST RIGHTS, PAGED VETERANS' COUNSELOR KAROLINE
--- NOTE | 2019-12-19 13:30 | NUR ---
UNABLE TO REACH MELISSA LOPEZ IN ADMINISTRATION, STATE SHE WOULD HAVE A DRAWING INSTRUCTOR COME OVER FOR THE FAMILY
--- NOTE | 2019-12-19 13:40 | NUR ---
[facility] HER FOR EVAL, DECISION MADE FOR INPATIENT UNIT AT [facility], PATIENT CHOICE FORM SIGNED, AWAITING COVID TEST RESULTS BEFORE TRANSFER
--- NOTE | 2019-12-19 14:15 | NUR ---
PASTOR HALL HERE AT BEDSIDE, PRAYER AND LAST RIGHTS GIVEN PER SISTERS REQUEST
--- NOTE | 2019-12-19 15:00 | NUR ---
CONTINUES ON 8L HFNC, SAT 88, NO LETHARGIC, NO ACUTE CHANGES FROM PREVIOUS
--- NOTE | 2019-12-19 18:20 | NUR ---
RESTING WITH NO SIGNS OF DISTRESS, VSS, NO ACUTE CHANGE FROM PREVIOUS
--- NOTE | 2019-12-19 19:00 | MORECARE ---
CASE MANAGEMENT DISCHARGE SUMMARY PATIENT: TERA GREEN UNIT: [id number] ADM DATE: 12/17/19 AGE: 64 : 53 SEX: M ROOM/BED: D.2305 AUTHOR: KAJAL CROSS PHYSICIAN: REFERRING PHYSICIAN: BOB GARLAND MD DATE OF SERVICE: 12/19/19 Discharge Plan Patient Name: TERA GREEN [facility] [facility] 1955 Planned Disposition: Hospice Medical Facility Anticipated Discharge Date: Discharge Date: Expected LOS: Initial Reviewer: [email or web address] Initial Review Date: 12/17/2019 Generated: 12/19/19 8:00 pm Patient Name: TERA GREEN Page 32218 at 1900 All edits/amendments must be made on the electronic document DICTATION DATE: 12/19/191899 REINFORCING BAR SETTER: CELESTINA 12/19/191899 RPT#: [id number] DC DATE: STATUS: ADM IN [facility] [address] [place] [address] END OF REPORT
--- NOTE | 2019-12-19 19:13 | MORECARE ---
CASE MANAGEMENT DISCHARGE SUMMARY PATIENT: TERA GREEN UNIT: [id number] ADM DATE: 12/17/19 AGE: 64 : 53 SEX: M ROOM/BED: D.2305 AUTHOR: KAJAL CROSS PHYSICIAN: REFERRING PHYSICIAN: BOB GARLAND MD DATE OF SERVICE: 12/19/19 Discharge Plan Patient Name: TERA GREEN [facility] [facility] 1955 Planned Disposition: Hospice Medical Facility Anticipated Discharge Date: Discharge Date: Expected LOS: Initial Reviewer: [email or web address] Initial Review Date: 12/17/2019 Generated: 12/19/19 8:12 pm Comments DCP- Discharge Planning Updated by [id number]: Jaylyn Genao on 12/19/19 6:[address] CM WAS ADVISED THE FAMILY, HIS SISTERS, WOULD LIKE A HOSPICE CONSULT. MD COGNIZANT OF DECISION. TC TO [facility]. NO AVAILABLE BEDS FOR [facility]. CM SPOKE W/ CRISTHIAN. DISCUSSED REFERRAL. FAXED CLINICAL FOR MD REVIEW. 1310 REC CB FROM SOTERO THAT CRISTINA WOULD BE ON SITE TO MEET W/ THE FAMILY. THE SISTERS WERE AT THE BEDSIDE. SOTERO TO CALL AND SPEAK WITH THE FAMILY. 7452 CRISTINA ON SITE FOR EVALUATION AND TO MEET WITH THE FAMILY. ODALIS HAD SPOKEN W/ NURSING STAFF. COVID 19 TESTING REQUIRED BY [facility]. NURSE TO FORWARD INFORMATION. AWAIT MD ASSESSMENT AND DECISION. Last DP export: 12/19/19 6:00 p Patient Name: TERA GREEN Page 52236 at 1913 All edits/amendments must be made on the electronic document DICTATION DATE: 12/19/191911 MILK ROUTE DELIVERER: CELESTINA 12/19/191911 RPT#: [id number] DC DATE: STATUS: ADM IN [facility] [address] [place] [address] END OF REPORT
--- NOTE | 2019-12-19 19:15 | NUR ---
REC'D CALL FROM LAB, TRE SCREEN NEG, NOW [facility] PC TO SISTER JULIET, SHE WILL COME TO HOSPITAL RIGHT AWAY,
--- NOTE | 2019-12-19 19:20 | NUR ---
NOW ASYSTOLE ON MONITOR, PC TO YAKOV TINEO
--- NOTE | 2019-12-19 19:25 | MORECARE ---
CASE MANAGEMENT DISCHARGE SUMMARY PATIENT: TERA GREEN UNIT: [id number] ADM DATE: 12/17/19 AGE: 64 : 53 SEX: M ROOM/BED: D.2305 AUTHOR: KAJAL CROSS PHYSICIAN: REFERRING PHYSICIAN: BOB GARLAND MD DATE OF SERVICE: 12/19/19 Discharge Plan Patient Name: TERA GREEN Facility: [facility]:[place] : 1955 Planned Disposition: Hospice Medical Facility Anticipated Discharge Date: Discharge Date: Expected LOS: Initial Reviewer: [email or web address] Initial Review Date: 12/17/2019 Generated: 12/19/19 8:25 pm Comments DCP- Discharge Planning Updated by [id number]: Jaylyn Genao on 12/19/19 6:[address] PATIENT HAD BEEN A RESIDENT AT [facility] IN [facility] BED. PHONE NUMBER [phone]. PREVIOUS ADMISSION W/ DISCHARGE 12/06/2019. EMERGENCY CONTACT IS HIS SISTER LUISA GUEVARA- [phone]. PCP- DR CARDENAS [facility] PATIENT W/ PROGRESSIVE LETHARGY AND DECLINING STATUS THIS AM. FAMILY REQUESTED PASTORAL SERVICES. CM TO FOLLOW TO ASSIST IS APPROPRIATE. DCP- Discharge Planning Updated by [email or web address]: Jaylyn Genao on 12/19/19 6:[address] CM WAS ADVISED THE FAMILY, HIS SISTERS, WOULD LIKE A HOSPICE CONSULT. MD COGNIZANT OF DECISION. TC TO [facility]. NO AVAILABLE BEDS FOR [facility]. CM SPOKE W/ CRISTHIAN. DISCUSSED REFERRAL. FAXED CLINICAL FOR MD REVIEW. 1310 REC CB FROM SOTERO THAT CRISTINA WOULD BE ON SITE TO MEET W/ THE FAMILY. THE SISTERS WERE AT THE BEDSIDE. SOTERO TO CALL AND SPEAK WITH THE FAMILY. [id number] CRISTINA ON SITE FOR EVALUATION AND TO MEET WITH THE FAMILY. ODALIS HAD SPOKEN W/ NURSING STAFF. COVID 19 TESTING REQUIRED BY [facility]. NURSE TO FORWARD INFORMATION. AWAIT MD ASSESSMENT AND DECISION. Last DP export: 12/19/19 6:13 p Patient Name: TERA GREEN Page 92184 at 1925 All edits/amendments must be made on the electronic document DICTATION DATE: 12/19/191924 CARD PUNCHER: CELESTINA 12/19/191924 RPT#: [id number] DC DATE: STATUS: ADM IN [facility] [address] [place] [address] END OF REPORT
--- NOTE | 2019-12-19 19:29 | NUR ---
DR MANE HERE FROM ER AND PRONOUNCEMENT OF GIVEN, REPORT GIVEN TO VEE ARZOLA FOR CONTINUATION OF CARE
--- NOTE | 2019-12-19 19:40 | NUR ---
REC'D REPORT. PT IS . ER DOCTOR HERE AND PRONOUCED. AUROA NOTIFIED, RECORD OF IN PROGRESS. NGT REMOVED WITH TIP INTACT. R.WRIST PIV D/C WITH CATHETER TIP FULLY INTACT. ORAL CARE PROVIDED. FAMILY NOW AT BEDSIDE. WILL CONTINUE WITH RECORD OF .
--- NOTE | 2019-12-19 20:10 | NUR ---
PT CHOSE [facility]. NOTIFIED PLACE AND WAITING MANAGER MEETING BACK.
--- NOTE | 2019-12-19 21:15 | NUR ---
[facility] HERE TO LENS INSERTER PATIENT. RECORD OF FORM COMPLETED AND FAXED TO RIP SAW OPERATOR. WEEKS CATHETER D/C WITH CATHETER TIP FULLY INTACT. NO FURTHER NEEDS.
--- NOTE | 2019-12-20 01:42 | MORECARE ---
CASE MANAGEMENT DISCHARGE SUMMARY PATIENT: TERA GREEN UNIT: [id number] ADM DATE: 12/17/19 AGE: 64 : 53 SEX: M ROOM/BED: D.2305 AUTHOR: KAJAL CROSS PHYSICIAN: REFERRING PHYSICIAN: BOB GARLAND MD DATE OF SERVICE: 12/20/19 Discharge Plan Patient Name: TERA GREEN Facility: [facility]:[place] : 1955 Planned Disposition: Hospice Medical Facility Anticipated Discharge Date: Discharge Date: 12/19/2019 Expected LOS: Initial Reviewer: [email or web address] Initial Review Date: 12/17/2019 Generated: 12/20/19 2:42 am Comments DCP- Discharge Planning Updated by [email or web address]: Jaylyn Genao on 12/19/19 6:[address] PATIENT HAD BEEN A RESIDENT AT [facility] IN [place] BED. PHONE NUMBER [phone]. PREVIOUS ADMISSION W/ DISCHARGE 12/06/2019. EMERGENCY CONTACT IS HIS SISTER LUISA GUEVARA- [phone]. PCP- DR CARDENAS [facility] PATIENT W/ PROGRESSIVE LETHARGY AND DECLINING STATUS THIS AM. FAMILY REQUESTED PASTORAL SERVICES. CM TO FOLLOW TO ASSIST IS APPROPRIATE. DCP- Discharge Planning Updated by [id number]: Jaylyn Genao on 12/19/19 6:[address] CM WAS ADVISED THE FAMILY, HIS SISTERS, WOULD LIKE A HOSPICE CONSULT. MD COGNIZANT OF DECISION. TC TO [facility]. NO AVAILABLE BEDS FOR [facility]. CM SPOKE W/ CRISTHIAN. DISCUSSED REFERRAL. FAXED CLINICAL FOR MD REVIEW. 1310 REC CB FROM SOTERO THAT CRISTINA WOULD BE ON SITE TO MEET W/ THE FAMILY. THE SISTERS WERE AT THE BEDSIDE. SOTERO TO CALL AND SPEAK WITH THE FAMILY. [id number] CRISTINA ON SITE FOR EVALUATION AND TO MEET WITH THE FAMILY. ODALIS HAD SPOKEN W/ NURSING STAFF. COVID 19 TESTING REQUIRED [address] [facility]. NURSE TO FORWARD INFORMATION. AWAIT MD ASSESSMENT AND DECISION. Last DP export: 12/19/19 6:25 p Patient Name: TERA GREEN Page 05813 at 0142 All edits/amendments must be made on the electronic document DICTATION DATE: 12/20/19141 FOXING PAINTER: CELESTINA 12/20/19141 RPT#: [id number] DC DATE:12/19/19 STATUS: DIS IN [facility] [address] [place] [address] END OF REPORT
== END 2019-12-19 21:25 | DRG 871 ==
LOC: D.ER 13:44 → D.ICU 17:31
PROVIDERS: Family Medicine; Internal Medicine Pulmonary Disease; ADMIT Family Medicine; ATTEND Family Medicine
DX: A41.9 Sepsis, unspecified organism (principal); I50.33 Acute on chronic diastolic (congestive) heart failure; G93.41 Metabolic encephalopathy; J96.01 Acute respiratory failure with hypoxia; I13.0 Hypertensive heart and chronic kidney disease with heart failure and stage 1 through stage 4 chronic kidney disease, or unspecified chronic kidney disease; N17.9 Acute kidney failure, unspecified; E87.1 Hypo-osmolality and hyponatremia; E87.2 Acidosis; K72.90 Hepatic failure, unspecified without coma; N18.9 Chronic kidney disease, unspecified; E87.5 Hyperkalemia; K52.9 Noninfective gastroenteritis and colitis, unspecified; D64.9 Anemia, unspecified; E11.9 Type 2 diabetes mellitus without complications; I71.4 Abdominal aortic aneurysm, without rupture; E78.5 Hyperlipidemia, unspecified; E03.9 Hypothyroidism, unspecified; J44.9 Chronic obstructive pulmonary disease, unspecified; E83.51 Hypocalcemia